=== PATIENT | female | born 1965 | race American Indian/Alaskan Native ===

== ENCOUNTER 2019-02-01 21:22 | Inpatient (IN) | payer MEDICARE ==
[2019-02-01] MEDS ORDERED: SOLU-Medrol IV ONE (21:50)
[2019-02-01] MEDS ORDERED: PROVENTIL IH ONE (21:51)
[2019-02-01] MEDS ORDERED: ATROVENT IH ONE (21:51)
[2019-02-01] MEDS ORDERED: LASIX IV ONE (21:51)
--- NOTE | 2019-02-01 21:55 | Emergency Department Report ---
ED Shortness of Breath HPI - General Chief Complaint: Dyspnea/Respdistress Stated Complaint: TOSHA Time Seen by Provider: 02/01/19 21:47 Source: patient, EMS Mode of arrival: Stretcher Limitations: No Limitations - History of Present Illness Initial Comments: Patient is 53 years old female, morbidly obese, history of CHF, COPD and obstructive sleep apnea. Patient presented to the ER complaining of shortness of breath and difficulty breathing on the last 5 days. Patient stated that her symptoms worse today. Patient is on home oxygen. EMS reported that patient initial oxygen saturation was 74% improved to 95% on nonrebreather. Patient denied any chest pain, fever or chills. MD Complaint: shortness of breath, cough -: days(s) (5) Known History Of: COPD, congestive heart failure - Related Data Allergies Allergy/AdvReac Type Severity Reaction Status Date / Time morphine Allergy Unknown Verified 02/01/19 21:45 ED Review of Systems ROS: Stated complaint: TOSHA Other details as noted in HPI Comment: All other systems reviewed and negative Constitutional: denies: chills, fever Respiratory: cough, orthopnea, shortness of breath, SOB with exertion, SOB at rest, wheezing. denies: stridor Cardiovascular: dyspnea on exertion, orthopnea. denies: chest pain, palpitations Gastrointestinal: denies: abdominal pain, nausea, vomiting Musculoskeletal: denies: back pain Neurological: denies: headache, weakness ED Physical Exam - General Limitations: No Limitations General appearance: alert, in no apparent distress - Head Head exam: Present: atraumatic, normocephalic, normal inspection - Eye Eye exam: Present: normal appearance, PERRL - ENT ENT exam: Present: normal exam, normal orophraynx, mucous membranes moist - Neck Neck exam: Present: normal inspection, full ROM. Absent: tenderness, meningismus, lymphadenopathy, thyromegaly - Respiratory Respiratory exam: Present: wheezes, rales, rhonchi. Absent: stridor, accessory muscle use, decreased breath sounds, prolonged expiratory - Cardiovascular Cardiovascular Exam: Present: regular rate, normal rhythm, normal heart sounds - GI/Abdominal GI/Abdominal exam: Present: soft, normal bowel sounds. Absent: distended, tenderness, guarding - Extremities Exam Extremities exam: Present: normal inspection, full ROM, normal capillary refill, pedal edema. Absent: tenderness, calf tenderness - Back Exam Back exam: Present: normal inspection, full ROM. Absent: CVA tenderness (R), CVA tenderness (L), muscle spasm - Neurological Exam Neurological exam: Present: alert, oriented X3, CN II-XII intact - Psychiatric Psychiatric exam: Present: normal mood - Skin Skin exam: Present: warm, intact, normal color ED Course Vital Signs 02/01/19 02/01/19 02/01/19 21:36 21:37 22:11 Pulse Rate 105 H 96 H Pulse Rate [ Anterior Throughout] Respiratory 17 22 26 H Rate Respiratory Rate [Anterior Throughout] Blood Pressure 159/79 [Left] O2 Sat by Pulse 99 98 98 Oximetry 02/01/19 02/01/19 22:47 23:19 Pulse Rate 89 Pulse Rate [ 91 H Anterior Throughout] Respiratory 14 Rate Respiratory 23 Rate [Anterior Throughout] Blood Pressure 135/71 [Left] O2 Sat by Pulse 94 Oximetry ED Medical Decision Making - Lab Data Result diagrams: 02/01/19 22:29 02/01/19 22:29 - EKG Data -: EKG Interpreted by In EKG shows normal: sinus rhythm Rate: normal - EKG Data Interpretation: no acute changes - Radiology Data Radiology results: report reviewed - Medical Decision Making Patient is 53 years old female, morbidly obese, history of CHF, COPD and obstructive sleep apnea. Patient presented to the ER complaining of shortness of breath and difficulty breathing on the last 5 days. Patient stated that her symptoms worse today. Patient is on home oxygen. EMS reported that patient initial oxygen saturation was 74% improved to 95% on nonrebreather. Patient denied any chest pain, fever or chills. Patient is started on BiPAP, albuterol, Atrovent and Solu-Medrol given. Labs reviewed and is unremarkable. I discussed the patient is Dr. Yola Spence, she agreed to admit the patient to medical service. Critical Care Time: Yes Critical care time in (mins) excluding proc time.: 30 Critical care attestation.: If time is entered above; I have spent that time in minutes in the direct care of this critically ill patient, excluding procedure time. ED Disposition Clinical Impression: Acute respiratory failure with hypoxia, COPD exacerbation Disposition: OP ADMIT IP TO THIS HOSP Is pt being admited?: Yes Condition: Stable Instructions: Chronic Obstructive Pulmonary Disease (ED) Referrals: [facility] MD CHRISTINE [Primary Care Provider] - 3-5 Days
[2019-02-01 22:46] LABS: Basophils # (Auto) 0.1 K/mm3 (0.0-0.1); Basophils % (Auto) 0.9 % (0.0-1.8); Eosinophils # (Auto) 0.2 K/mm3 (0.0-0.4); Eosinophils % (Auto) 2.4 % (0.0-4.3); Hematocrit 28.9 % (30.3-42.9); Hemoglobin 9.2 gm/dl (10.1-14.3); Lymphocytes # (Auto) 1.6 K/mm3 (1.2-5.4); Lymphocytes % (Auto) 16.9 % (13.4-35.0); Mean Corpuscular HGB Conc 32 % (30-34); Mean Corpuscular Volume 84 fl (79-97); Monocytes # (Auto) 0.5 K/mm3 (0.0-0.8); Monocytes % (Auto) 5.1 % (0.0-7.3); Platelet Count 349 K/mm3 (140-440); Red Blood Count 3.45 M/mm3 (3.65-5.03); Red Cell Distribution Width 18.5 % (13.2-15.2)
[2019-02-01 22:57] LABS: INR 1.15 (0.87-1.13)
[2019-02-01 22:59] LABS: Partial Thromboplastin Time 28.6 Sec. (24.2-36.6)
--- NOTE | 2019-02-01 23:09 | XRay Report ---
CHEST 1 VIEW INDICATION / CLINICAL INFORMATION: Dyspnea. COMPARISON: None available. FINDINGS: Exam limited by underpenetration, which is due at least in part to patient body habitus. The heart ap pears moderately enlarged. Within limitations of the exam, there does not appear to be significant pu lmonary parenchymal consolidation, although the left lung base is not visualized. No identifiable pne umothorax or right pleural fluid. A small left pleural effusion is not excluded. IMPRESSION: Mild to moderate cardiomegaly. Exam limitations as above. Consider formal two-view uprigh t chest radiography if the patient is able. Signer Name: Vinay Escobedo MD Signed: 02/01/2019 11:04 PM Workstation Name: [id number]
[2019-02-01 23:11] LABS: BUN/Creatinine Ratio 23; Blood Urea Nitrogen 18 mg/dL (7-17); Calcium 7.9 mg/dL (8.4-10.2); Hemolysis Index 11
--- NOTE | 2019-02-01 23:57 | History and Physical Report ---
History of Present Illness Date of examination: 02/01/19 History of present illness: 53 -year-old woman with a history of COPD, CHF, hypertension, diabetes sleep apnea, anxiety comes emergency room with complaints of shortness of breath 2 weeks. Her symptoms have gotten worse in the last few days, symptoms not relieved with nebulizer treatments. Complains of decreased exercise tolerance, orthopnea, cough productive of green phlegm eview Of Systems: Constitutional: no weight loss, fever, chills Ears, eyes, nose, mouth and throat: no nasal congestion, no nasal discharge, no sinus pressure, blurry vision, diplopia Neck: No neck pain or rigidity. Cardiovascular: No palpitations, chest pain Respiratory: No shortness of breath, cough Gastrointestinal: No hematochezia, abdominal pain Genitourinary : no dysuria, frequency , hematuria Musculoskeletal: no muscle ache , joint pain Integumentary: no rash, no pruritis Neurological: no parathesias, focal weakness Endocrine: no cold or heat intolerance, no polyuria or polydipsia Hematologic/Lymphatic: no easy bruising, no easy bleeding, no gland swelling Allergic/Immunologic: no urticaria, no angioedema. PAST MEDICAL HISTORY:COPD, CHF, attention, diabetes sleep apnea, anxiety PAST SURGICAL HISTORY:none FAMILY HISTORY:hypertension, diabetes SOCIAL HISTORY: Denies tobacco, drugs, alcohol Medications and Allergies Allergies Allergy/AdvReac Type Severity Reaction Status Date / Time morphine Allergy Unknown Verified 02/02/19 01:44 Home Medications Medication Instructions Recorded Confirmed Last Taken Type Amitriptyline 50 mg PO DAILY 02/02/19 02/02/19 Unknown History Atorvastatin Calcium [Lipitor] 80 mg PO DAILY 02/02/19 02/02/19 Unknown History Furosemide [Lasix TAB] 80 mg PO BID 02/02/19 02/02/19 Unknown History Gabapentin [Neurontin] 600 mg PO Q8H 02/02/19 02/02/19 Unknown History Labetalol [Labetalol 200mg TAB] 200 mg PO TID 02/02/19 02/02/19 Unknown History Losartan 25 mg PO DAILY 02/02/19 02/02/19 Unknown History Montelukast [Singulair] 10 mg PO QPM 02/02/19 02/02/19 Unknown History Potassium 20 meq PO DAILY 02/02/19 02/02/19 Unknown History Remeron 30mg TAB 30 mg PO DAILY 02/02/19 02/02/19 Unknown History dilTIAZem [Cardizem] 240 mg PO DAILY 02/02/19 02/02/19 Unknown History glipiZIDE 10 mg PO BID 02/02/19 02/02/19 Unknown History metFORMIN 1,000 mg PO BID 02/02/19 02/02/19 Unknown History ALBUTEROL Inhaler (OR & NICU) 2 puff IH QID PRN #1 inhalation 02/05/19 Unknown Rx [ProAir HFA Inhaler] Fluticasone/Salmeterol [Advair 1 puff IH BID #1 disk.w.dev 02/05/19 Unknown Rx Diskus 100-50 mcg] Prednisone [predniSONE 5 mg (6-Day 5 mg PO .TAPER #1 tab.ds.pk 02/05/19 Unknown Rx Pack, 21 Tabs)] Exam - Physical Exam Narrative exam: General Apperance: The patient sitting in bed no acute distress HEENT: Normocephalic, atraumatic. Pupils equally round and reactive to light, extraocular movement intact, and no sclericterus or JVD or thyromegaly or n odule. Neck supple, no carotid bruit, mucous membranes moist, no exudate or erythema Heart: S1-S2, regular is rhythm Lungs: decrease breath sounds bilaterally, breathing comfortable Abdomen: Positive bowel sounds, soft, nontender, nondistended, no organomegaly Extremities: No edema cyanosis clubbing Skin: no rash, nodule, warm and dry Neuro:CN 2 -12 intact, motor/sensory intact, speech is fluent - Constitutional Vitals: Temp Pulse Resp BP Pulse Ox 89 14 135/71 94 02/01/19 23:19 02/01/19 23:19 02/01/19 23:19 02/01/19 23:19 Results - Labs CBC & Chem 7: 02/02/19 05:01 02/04/19 04:25 Labs: Abnormal lab results 02/01/19 02/01/19 02/01/19 Range/Units 22:29 22:29 22:29 RBC 3.45 L (3.65-5.03) M/mm3 Hgb 9.2 L (10.1-14.3) gm/dl Hct 28.9 L (30.3-42.9) % MCH 27 L (28-32) pg RDW 18.5 H (13.2-15.2) % Seg Neutrophils % 74.7 H (40.0-70.0) % INR 1.15 H (0.87-1.13) BUN 18 H (7-17) mg/dL Glucose 197 H (65-100) mg/dL Calcium 7.9 L (8.4-10.2) mg/dL - Imaging and Cardiology EKG: image reviewed Chest x-ray: report reviewed Assessment and Plan Assessment Acute respiratory failure COPD/CHF exacerbation Hypertension Diabetes JARED Sleep Apnea Plan Admit to medicine High-dose steroids, nebulizer treatments, azithromycin Start IV Lasix, hold beta bridgett secondary to COPD exacerbation, at 80s, aspirin Check cardiac enzymes, echo, consult cardiology Check fingersticks initiate insulin sliding scale DVT prophylaxis
[2019-02-02] MEDS ORDERED: TYLENOL PO PRN (00:14)
[2019-02-02] MEDS ORDERED: SODIUM CHLORIDE FLUSH SYRINGE 10 ML IV PRN (00:14)
[2019-02-02] MEDS ORDERED: ZOFRAN IV PRN (00:14)
[2019-02-02] MEDS ORDERED: D50W (25GM) Syringe IV PRN (00:38)
[2019-02-02] MEDS: DUONEB *Not for PRN Use IH SCH ×4 (01:52→20:25)
[2019-02-02] MEDS ORDERED: SOLU-Medrol IV SCH (03:00)
[2019-02-02 03:18] LABS: Creatine Kinase MB < 1.0 ng/mL (0.0-4.0)
[2019-02-02] MEDS: ZITHROMAX 500 MG in NACL 0.9% 250ML 250 ML IV SCH ×2 (04:21→12:50)
[2019-02-02 05:31] LABS: Hematocrit 31.4 % (30.3-42.9); Hemoglobin 9.8 gm/dl (10.1-14.3); Mean Corpuscular HGB Conc 31 % (30-34); Mean Corpuscular Volume 85 fl (79-97); Platelet Count 379 K/mm3 (140-440); Red Cell Distribution Width 18.8 % (13.2-15.2)
[2019-02-02] MEDS: LASIX IV SCH ×2 (05:41→17:34)
[2019-02-02 05:51] LABS: Creatine Kinase MB < 1.0 ng/mL (0.0-4.0)
[2019-02-02 05:56] LABS: BUN/Creatinine Ratio 21; Blood Urea Nitrogen 19 mg/dL (7-17); Calcium 8.2 mg/dL (8.4-10.2); Hemolysis Index 5
[2019-02-02 06:45] LABS: Basophils % (Manual) 0 % (0.0-1.8); Eosinophils % (Manual) 0 % (0.0-4.3); Monocytes % (Manual) 0 % (0.0-7.3); Total Cells Counted 100
[2019-02-02 06:46] LABS: Anisocytosis 1+; Burr Cells Few; Ovalocytes Few; Platelet Estimate Consistent w Auto; Poikilocytosis 1+
[2019-02-02] MEDS: BABY ASPIRIN PO SCH (09:22)
[2019-02-02] MEDS: LOVENOX SUB-Q SCH (09:22)
[2019-02-02] MEDS: HumaLOG SUB-Q SCH ×4 (09:23→21:47)
[2019-02-02] MEDS: SODIUM CHLORIDE FLUSH SYRINGE 10 ML IV SCH (09:24)
[2019-02-02] MEDS ORDERED: ZESTRIL PO SCH (10:00)
--- NOTE | 2019-02-02 12:13 | Consultation ---
History of Present Illness Consult date: 02/02/19 Consult reason: shortness of breath History of present illness: Patient is a 53-year old morbidly obese female with chronic lung disease, COPD on home oxygen, Sleep apnea who presented with complaints of shortness of breath that has progressively worsened over 3 days. It's reported patient was hypoxic on EMS arrival with initial oxygen saturation at 74%. Chest x-ray reports limited exam due to underpenetration but evidence of cardiomegaly. Her latest echocardiogram done a year ago at [facility] reports a normal left ventricular systolic function, ejection fraction 50-55%. An ECG is sinus rhythm, left anterior fascicular block with poor R wave progression. Medications and Allergies Allergies Allergy/AdvReac Type Severity Reaction Status Date / Time morphine Allergy Unknown Verified 02/02/19 01:44 Home Medications Medication Instructions Recorded Confirmed Last Taken Type Amitriptyline 50 mg PO DAILY 02/02/19 02/02/19 Unknown History Atorvastatin Calcium [Lipitor] 80 mg PO DAILY 02/02/19 02/02/19 Unknown History Furosemide [Lasix TAB] 80 mg PO BID 02/02/19 02/02/19 Unknown History Gabapentin [Neurontin] 600 mg PO Q8H 02/02/19 02/02/19 Unknown History Labetalol [Labetalol 200mg TAB] 200 mg PO TID 02/02/19 02/02/19 Unknown History Losartan 25 mg PO DAILY 02/02/19 02/02/19 Unknown History Montelukast [Singulair] 10 mg PO QPM 02/02/19 02/02/19 Unknown History Potassium 20 meq PO DAILY 02/02/19 02/02/19 Unknown History Remeron 30mg TAB 30 mg PO DAILY 02/02/19 02/02/19 Unknown History dilTIAZem [CarDIZEM] 240 mg PO DAILY 02/02/19 02/02/19 Unknown History glipiZIDE 10 mg PO BID 02/02/19 02/02/19 Unknown History metFORMIN 1,000 mg PO BID 02/02/19 02/02/19 Unknown History Active Meds: Active Medications Acetaminophen (Tylenol) 650 mg PO Q4H PRN PRN Reason: Pain MILD(1-3)/Fever >100.5/HERNANDEZ Albuterol/Ipratropium (Duoneb *Not For Prn Use*) 1 ampul IH Q6HRT [facility] Last Admin: 02/02/19 01:52 Dose: 1 ampul Documented by: Aspirin (Baby Aspirin) 81 mg PO QDAY [facility] Last Admin: 02/02/19 09:22 Dose: 81 mg Documented by: Dextrose (D50w (25gm) Syringe) 50 ml IV PRN PRN PRN Reason: Hypoglycemia Enoxaparin Sodium (Lovenox) 40 mg SUB-Q QDAY@1000 [facility] Last Admin: 02/02/19 09:22 Dose: 40 mg Documented by: Furosemide (Lasix) 40 mg IV 0600,1800 [facility] Last Admin: 02/02/19 05:41 Dose: 40 mg Documented by: Azithromycin 500 mg/ Sodium (Chloride) 250 mls @ 250 mls/hr IV Q24HR [facility]; Protocol Last Admin: 02/02/19 04:21 Dose: 250 mls/hr Documented by: Insulin Human Lispro (Humalog) 0 unit SUB-Q ACHS [facility]; Protocol Last Admin: 02/02/19 09:23 Dose: 6 unit Documented by: Lisinopril (Zestril) 2.5 mg PO QDAY [facility] Last Admin: 02/02/19 09:25 Dose: Not Given Documented by: Methylprednisolone Sodium Succinate (Solu-Medrol) 125 mg IV Q6H [facility] Ondansetron HCl (Zofran) 4 mg IV Q8H PRN PRN Reason: Nausea And Vomiting Sodium Chloride (Sodium Chloride Flush Syringe 10 Ml) 10 ml IV BID [facility] Last Admin: 02/02/19 09:24 Dose: 10 ml Documented by: Sodium Chloride (Sodium Chloride Flush Syringe 10 Ml) 10 ml IV PRN PRN PRN Reason: LINE FLUSH Physical Examination Vital Signs Resp Pulse Ox 17 99 02/01/19 21:36 02/01/19 21:36 General appearance: obese HEENT: Positive: PERRL Cardiac: Positive: Reg Rate and Rhythm Lungs: Positive: Decreased Breath Sounds Extremities: Present: +1 Edema Results 02/02/19 05:01 02/02/19 05:01 Cardiac Enzymes 02/02/19 02/02/19 Range/Units 01:24 05:01 CK-MB (CK-2) < 1.0 < 1.0 (0.0-4.0) ng/mL Coagulation 02/01/19 Range/Units 22:29 PT 14.4 (12.2-14.9) Sec. INR 1.15 H (0.87-1.13) APTT 28.6 (24.2-36.6) Sec. CBC 02/01/19 02/02/19 Range/Units 22:29 05:01 WBC 9.7 9.9 (4.5-11.0) K/mm3 RBC 3.45 L 3.70 (3.65-5.03) M/mm3 Hgb 9.2 L 9.8 L (10.1-14.3) gm/dl Hct 28.9 L 31.4 (30.3-42.9) % Plt Count 349 379 (140-440) K/mm3 Lymph # 1.6 (1.2-5.4) K/mm3 [place] # 0.5 (0.0-0.8) K/mm3 Eos # 0.2 (0.0-0.4) K/mm3 Baso # 0.1 (0.0-0.1) K/mm3 Comprehensive Metabolic Panel 02/01/19 02/02/19 Range/Units 22:29 05:01 Sodium 143 141 (137-145) mmol/L Potassium 3.8 4.5 (3.6-5.0) mmol/L Chloride 102.8 99.9 (98-107) mmol/L Carbon Dioxide 24 24 (22-30) mmol/L BUN 18 H 19 H (7-17) mg/dL Creatinine 0.8 0.9 (0.7-1.2) mg/dL Glucose 197 H 280 H (65-100) mg/dL Calcium 7.9 L 8.2 L (8.4-10.2) mg/dL Assessment and Plan Shortness of breath, multifactorial COPD sleep apnea acute heart failure morbid obesity Hypertension Diabetes Recommendations: Echocardiogram for LVEF reassessment. Agree with IV diuresis and after-load reduction therapy.
[2019-02-02] MEDS: SOLU-Medrol IV SCH ×3 (13:15→17:34)
--- NOTE | 2019-02-02 14:50 | Progress Note ---
Assessment and Plan Assessment and plan: Acute on chronic respiratory failure - Treat the underlying COPD and CHF exacerbation - Continue BiPAP COPD/cor pulmonale - IV Solu-Medrol, nebulizer treatment, antibiotics - Patient has almost oxygen and BiPAP CHF exacerbation - IV Lasix, cardiology consulted and echo was done which showed ejection fr action of 35-40% - We'll restart beta blockers once COPD is controlled Hypertension - Controlled continue current medications Diabetes - ADA diet, Accu-Chek, sliding scale insulin JARED Sleep Apnea - Continue on BiPAP History Interval history: Patient was seen and evaluated this morning, patient is on BiPAP. Hospitalist Physical - Physical exam Narrative exam: Not in cardiopulmonary distress. The patient is morbidly obese. Vital signs as documented. Head exam is unremarkable. No scleral icterus . Neck is without jugular venous distension, thyromegaly, or carotid bruits. Lungs decreased air entry on the bibasilar area. Cardiac exam reveals regular rate and Rhythm. First and second heart sounds normal. No murmurs, rubs or gallops. Abdominal exam reveals normal bowel sounds, no masses, no organomegaly and no aortic enlargement. Extremities trace pedal and pretibial edema. [employer]: Alert and oriented 3. No focal weakness. - Constitutional Vitals: Temp Pulse Resp BP Pulse Ox 98.0 F 107 H 18 159/95 91 02/02/19 07:48 02/02/19 12:54 02/02/19 07:48 02/02/19 12:54 02/02/19 12:54 General appearance: Present: obese Results - Labs CBC & Chem 7: 02/02/19 05:01 02/02/19 05:01 Labs: Laboratory Last Values WBC 9.9 K/mm3 (4.5-11.0) 02/02/19 05:01 RBC 3.70 M/mm3 (3.65-5.03) 02/02/19 05:01 Hgb 9.8 gm/dl (10.1-14.3) L 02/02/19 05:01 Hct 31.4 % (30.3-42.9) 02/02/19 05:01 MCV 85 fl (79-97) 02/02/19 05:01 MCH 27 pg (28-32) L 02/02/19 05:01 MCHC 31 % (30-34) 02/02/19 05:01 RDW 18.8 % (13.2-15.2) H 02/02/19 05:01 Plt Count 379 K/mm3 (140-440) 02/02/19 05:01 Lymph % (Auto) 16.9 % (13.4-35.0) 02/01/19 22:29 [place] % (Auto) 5.1 % (0.0-7.3) 02/01/19 22: Eos % (Auto) 2.4 % (0.0-4.3) 02/01/19 22: Baso % (Auto) 0.9 % (0.0-1.8) 02/01/19 22: Lymph # 1.6 K/mm3 (1.2-5.4) 02/01/19 22: [place] # 0.5 K/mm3 (0.0-0.8) 02/01/19 22: Eos # 0.2 K/mm3 (0.0-0.4) 02/01/19 22: Baso # 0.1 K/mm3 (0.0-0.1) 02/01/19 22: Add Manual Diff Complete 02/02/19 05:01 Total Counted 100 02/02/19 05:01 Seg Neutrophils % 74.7 % (40.0-70.0) H 02/01/19 22:29 Seg Neuts % (Manual) 99.0 % (40.0-70.0) H 02/02/19 05:01 0 % 02/02/19 05:01 1.0 % (13.4-35.0) L 02/02/19 05:01 Reactive Lymphs % (Man) 0 % 02/02/19 05:01 0 % (0.0-7.3) 02/02/19 05:01 0 % (0.0-4.3) 02/02/19 05:01 0 % (0.0-1.8) 02/02/19 05:01 0 % 02/02/19 05:01 0 % 02/02/19 05:01 0 % 02/02/19 05:01 0 % 02/02/19 05:01 Nucleated RBC % 1.0 % (0.0-0.9) H 02/02/19 05:01 Seg Neutrophils # 7.3 K/mm3 (1.8-7.7) 02/01/19 22:29 Seg Neutrophils # Man 9.8 K/mm3 (1.8-7.7) H 02/02/19 05:01 Band Neutrophils # 0.0 K/mm3 02/02/19 05:01 0.1 K/mm3 (1.2-5.4) L 02/02/19 05:01 Abs React Lymphs (Man) 0.0 K/mm3 02/02/19 05:01 0.0 K/mm3 (0.0-0.8) 02/02/19 05:01 0.0 K/mm3 (0.0-0.4) 02/02/19 05:01 0.0 K/mm3 (0.0-0.1) 02/02/19 05:01 0.0 K/mm3 02/02/19 05:01 0.0 K/mm3 02/02/19 05:01 0.0 K/mm3 02/02/19 05:01 Blast Cells # 0.0 K/mm3 02/02/19 05:01 WBC Morphology Not Reportable 02/02/19 05:01 Hypersegmented Neuts Not Reportable 02/02/19 05:01 Hyposegmented Neuts Not Reportable 02/02/19 05:01 Hypogranular Neuts Not Reportable 02/02/19 05:01 Not Reportable 02/02/19 05:01 Not Reportable 02/02/19 05:01 Not Reportable 02/02/19 05:01 Not Reportable 02/02/19 05:01 Not Reportable 02/02/19 05:01 Not Reportable 02/02/19 05:01 Consistent w auto 02/02/19 05:01 Not Reportable 02/02/19 05:01 Plt Clumps, EDTA Not Reportable 02/02/19 05:01 Not Reportable 02/02/19 05:01 Not Reportable 02/02/19 05:01 Not Reportable 02/02/19 05:01 Plt Morphology Comment Not Reportable 02/02/19 05:01 RBC Morphology Not Reportable 02/02/19 05:01 Dimorphic RBCs Not Reportable 02/02/19 05:01 Not Reportable 02/02/19 05:01 Not Reportable 02/02/19 05:01 1+ 02/02/19 05:01 1+ 02/02/19 05:01 Not Reportable 02/02/19 05:01 Not Reportable 02/02/19 05:01 Not Reportable 02/02/19 05:01 Not Reportable 02/02/19 05:01 Not Reportable 02/02/19 05:01 Not Reportable 02/02/19 05:01 Not Reportable 02/02/19 05:01 Few 02/02/19 05:01 Not Reportable 02/02/19 05:01 Not Reportable 02/02/19 05:01 Not Reportable 02/02/19 05:01 Few 02/02/19 05:01 Not Reportable 02/02/19 05:01 Not Reportable 02/02/19 05:01 Few 02/02/19 05:01 Acanthocytes (Spur) Not Reportable 02/02/19 05:01 Rouleaux Not Reportable 02/02/19 05:01 Not Reportable 02/02/19 05:01 Not Reportable 02/02/19 05:01 Not Reportable 02/02/19 05:01 Not Reportable 02/02/19 05:01 Hem Pathologist Commnt No 02/02/19 05:01 PT 14.4 Sec. (12.2-14.9) 02/01/19 22:29 INR 1.15 (0.87-1.13) H 02/01/19 22:29 APTT 28.6 Sec. (24.2-36.6) 02/01/19 22:29 POC ABG pH 7.284 (7.35-7.45) L 02/02/19 00:51 POC ABG pCO2 56.5 (35-45) H 02/02/19 00:51 POC ABG pO2 70 (80-105) L 02/02/19 00:51 POC ABG HCO3 26.8 (22-26 mml/L) 02/02/19 00:51 POC ABG Total CO2 28 (23-27mmol/L) 02/02/19 00:51 POC ABG O2 Sat 91 02/02/19 00:51 POC ABG Base Excess 0 ((-2) - (+3)mmol/L) 02/02/19 00:51 30 % 02/02/19 00:51 Sodium 141 mmol/L (137-145) 02/02/19 05:01 Potassium 4.5 mmol/L (3.6-5.0) 02/02/19 05:01 Chloride 99.9 mmol/L (98-107) 02/02/19 05:01 Carbon Dioxide 24 mmol/L (22-30) 02/02/19 05:01 22 mmol/L 02/02/19 05:01 BUN 19 mg/dL (7-17) H 02/02/19 05:01 0.9 mg/dL (0.7-1.2) 02/02/19 05:01 Estimated GFR > 60 ml/min 02/02/19 05:01 21 % 02/02/19 05:01 Glucose 280 mg/dL (65-100) H 02/02/19 05:01 POC Glucose 291 (70-105) H 02/02/19 13:00 Calcium 8.2 mg/dL (8.4-10.2) L 02/02/19 05:01 70 units/L (30-135) 02/02/19 05:01 CK-MB (CK-2) < 1.0 ng/mL (0.0-4.0) 02/02/19 05:01 CK-MB (CK-2) Rel Index 1.4 (0-4) 02/02/19 05:01 < 0.010 ng/mL (0.00-0.029) 02/02/19 05:01 NT-Pro-B Natriuret Pep 598.0 pg/mL (0-900) 02/01/19 22:29 Active Medications - Current Medications Current Medications: Generic Name Dose Route Start Last Admin Trade Name Freq PRN Reason Stop Dose Admin Acetaminophen 650 mg 02/02/19 00:14 Tylenol PO Q4H PRN Pain MILD(1-3)/Fever >100.5/HERNANDEZ Albuterol/Ipratropium 1 ampul 02/02/19 02:00 02/02/19 01:52 Duoneb *Not For Prn Use* IH 1 ampul Q6HRT [facility] Administration Aspirin 81 mg 02/02/19 10:00 02/02/19 09:22 Baby Aspirin PO 81 mg QDAY [facility] Administration Dextrose 50 ml 02/02/19 00:38 D50w (25gm) Syringe IV PRN PRN Hypoglycemia Enoxaparin Sodium 40 mg 02/02/19 10:00 02/02/19 09:22 Lovenox SUB-Q 40 mg QDAY@1000 [facility] Administration Furosemide 40 mg 02/02/19 06:00 02/02/19 05:41 Lasix IV 40 mg 0600,1800 [facility] Administration Azithromycin 500 mg/ Sodium 250 mls @ 250 mls/hr 02/02/19 00:22 02/02/19 12:50 Chloride IV 250 mls/hr Q24HR [facility] Administration Protocol Ceftriaxone Sodium 1 gm in 50 mls @ 100 mls/hr 02/02/19 15:00 Rocephin/Ns 1 Gm/50 Ml IV Q24HR [facility] Protocol Insulin Human Lispro 0 unit 02/02/19 07:30 02/02/19 13:14 Humalog SUB-Q 6 unit ACHS [facility] Administration Protocol Lisinopril 20 mg 02/02/19 14:45 Zestril PO QDAY [facility] Methylprednisolone Sodium Succinate 80 mg 02/02/19 14:46 Solu-Medrol IV Q6H [facility] Ondansetron HCl 4 mg 02/02/19 00:14 Zofran IV Q8H PRN Nausea And Vomiting Sodium Chloride 10 ml 02/02/19 10:00 02/02/19 09:24 Sodium Chloride Flush Syringe 10 Ml IV 10 ml BID [facility] Administration Sodium Chloride 10 ml 02/02/19 00:14 Sodium Chloride Flush Syringe 10 Ml IV PRN PRN LINE FLUSH
[2019-02-02] MEDS: ROCEPHIN/NS 1 GM/50 ML 1 GM/50 ML BAG IV SCH (17:35)
[2019-02-02] MEDS: ZESTRIL PO SCH (17:54)
[2019-02-03] MEDS: SODIUM CHLORIDE FLUSH SYRINGE 10 ML IV SCH ×3 (01:11→21:59)
[2019-02-03] MEDS: SOLU-Medrol IV SCH ×5 (01:22→21:56)
[2019-02-03] MEDS ORDERED: SOLU-Medrol IV SCH (01:30)
[2019-02-03] MEDS: DUONEB *Not for PRN Use IH SCH ×4 (01:51→20:42)
[2019-02-03] MEDS: LASIX IV SCH ×2 (06:35→17:15)
--- NOTE | 2019-02-03 09:14 | Progress Note ---
Assessment and Plan Acute combined systolic and diastolic heart failure Cardiomyopathy, LVEF 35-40% Cor-Pulmonale and Severe Pulmonary Hypertension Obesity hypoventilation syndrome COPD on home oxygen Morbid obesity Anemia Recommend IV diuresis, afterload reduction and BiPAP therapy Guideline directed medical therapy for cardiomyopathy - add BB once heart failure symptoms resolve Subjective Date of service: 02/03/19 Interval history: Dyspnea is improving. Objective Vital Signs Temp Pulse Pulse Resp Resp BP BP 02/03/19 08:00 92 H 14 02/03/19 07:56 98.5 F 91 H 20 189/91 02/03/19 05:20 99.2 F 02/03/19 05:19 90 22 158/82 02/03/19 03:53 90 02/03/19 01:51 97 H 26 H 02/03/19 00:53 97.8 F 94 H 24 160/79 02/03/19 00:52 24 160/79 02/02/19 23:41 02/02/19 21:30 98.2 F 02/02/19 21:29 107 H 20 159/78 02/02/19 20:25 107 H 22 02/02/19 19:22 108 H 02/02/19 17:33 160/82 02/02/19 14:00 111 H 02/02/19 12:54 107 H 159/95 Pulse Ox 02/03/19 08:00 02/03/19 07:56 91 02/03/19 05:20 02/03/19 05:19 96 02/03/19 03:53 02/03/19 01:51 02/03/19 00:53 93 02/03/19 00:52 02/02/19 23:41 98 02/02/19 21:30 02/02/19 21:29 92 02/02/19 20:25 02/02/19 19:22 02/02/19 17:33 02/02/19 14:00 02/02/19 12:54 91 - Physical Examination HEENT: Positive: PERRL Cardiac: Positive: Reg Rate and Rhythm Lungs: Positive: Decreased Breath Sounds Abdomen: Positive: Soft, Active Bowel Sounds Extremities: Present: +1 Edema - Imaging and Cardiology EKG: image reviewed
[2019-02-03] MEDS: HumaLOG SUB-Q SCH ×4 (09:30→21:59)
[2019-02-03] MEDS: ROCEPHIN/NS 1 GM/50 ML 1 GM/50 ML BAG IV SCH (09:34)
[2019-02-03] MEDS: LOVENOX SUB-Q SCH (09:34)
[2019-02-03] MEDS: BABY ASPIRIN PO SCH (09:35)
[2019-02-03] MEDS: ZESTRIL PO SCH (11:15)
[2019-02-03] MEDS: ZITHROMAX 500 MG in NACL 0.9% 250ML 250 ML IV SCH (11:26)
[2019-02-03] MEDS: COZAAR PO SCH (12:06)
--- NOTE | 2019-02-03 12:23 | Progress Note ---
Assessment and Plan Assessment and plan: Acute on chronic respiratory failure - Treat the underlying COPD and CHF exacerbation - Continue BiPAP COPD/cor pulmonale - IV Solu-Medrol, nebulizer treatment, antibiotics - Patient has almost oxygen and BiPAP CHF exacerbation - IV Lasix, cardiology consulted and echo was done which showed ejection fr action of 35-40% - We'll restart beta blockers once COPD is controlled Hypertension - Controlled continue current medications Diabetes - ADA diet, Accu-Chek, sliding scale insulin JARED Sleep Apnea - Continue on BiPAP as needed. Disposition: possible DC tomorrow. Patient has home BIPAP and may need a rrangement pf BIPAP on the way home or patient may need to bring her BIPAP. History Interval history: Patient was seen and evaluated this morning, patient is on BiPAP PRN. Patient is breathing better. Hospitalist Physical - Physical exam Narrative exam: patient is on IN o2 and PRN BIPAP. The patient is morbidly obese. Vital signs as documented. Head exam is unremarkable. No scleral icterus . Neck is without jugular venous distension, thyromegaly, or carotid bruits. Lungs decreased air entry on the bibasilar area. Cardiac exam reveals regular rate and Rhythm. Abdominal exam reveals normal bowel sounds. Extremities trace pedal and pretibial edema. [employer]: Alert and oriented 3. No focal weakness. - Constitutional Vitals: Temp Pulse Resp BP Pulse Ox 98.5 F 95 H 18 180/92 94 02/03/19 11:48 02/03/19 12:06 02/03/19 11:48 02/03/19 12:06 02/03/19 11:48 General appearance: Present: obese Results - Labs CBC & Chem 7: 02/02/19 05:01 02/02/19 05:01 Labs: Laboratory Last Values WBC 9.9 K/mm3 (4.5-11.0) 02/02/19 05:01 RBC 3.70 M/mm3 (3.65-5.03) 02/02/19 05:01 Hgb 9.8 gm/dl (10.1-14.3) L 02/02/19 05:01 Hct 31.4 % (30.3-42.9) 02/02/19 05:01 MCV 85 fl (79-97) 02/02/19 05:01 MCH 27 pg (28-32) L 02/02/19 05:01 MCHC 31 % (30-34) 02/02/19 05:01 RDW 18.8 % (13.2-15.2) H 02/02/19 05:01 Plt Count 379 K/mm3 (140-440) 02/02/19 05:01 Lymph % (Auto) 16.9 % (13.4-35.0) 02/01/19 22:29 [place] % (Auto) 5.1 % (0.0-7.3) 02/01/19 22: Eos % (Auto) 2.4 % (0.0-4.3) 02/01/19 22: Baso % (Auto) 0.9 % (0.0-1.8) 02/01/19 22: Lymph # 1.6 K/mm3 (1.2-5.4) 02/01/19 22: [place] # 0.5 K/mm3 (0.0-0.8) 02/01/19 22: Eos # 0.2 K/mm3 (0.0-0.4) 02/01/19 22: Baso # 0.1 K/mm3 (0.0-0.1) 02/01/19 22:29 Add Manual Diff Complete 02/02/19 05:01 Total Counted 100 02/02/19 05:01 Seg Neutrophils % 74.7 % (40.0-70.0) H 02/01/19 22:29 Seg Neuts % (Manual) 99.0 % (40.0-70.0) H 02/02/19 05:01 0 % 02/02/19 05:01 1.0 % (13.4-35.0) L 02/02/19 05:01 Reactive Lymphs % (Man) 0 % 02/02/19 05:01 0 % (0.0-7.3) 02/02/19 05:01 0 % (0.0-4.3) 02/02/19 05:01 0 % (0.0-1.8) 02/02/19 05:01 0 % 02/02/19 05:01 0 % 02/02/19 05:01 0 % 02/02/19 05:01 0 % 02/02/19 05:01 Nucleated RBC % 1.0 % (0.0-0.9) H 02/02/19 05:01 Seg Neutrophils # 7.3 K/mm3 (1.8-7.7) 02/01/19 22:29 Seg Neutrophils # Man 9.8 K/mm3 (1.8-7.7) H 02/02/19 05:01 Band Neutrophils # 0.0 K/mm3 02/02/19 05:01 0.1 K/mm3 (1.2-5.4) L 02/02/19 05:01 Abs React Lymphs (Man) 0.0 K/mm3 02/02/19 05:01 0.0 K/mm3 (0.0-0.8) 02/02/19 05:01 0.0 K/mm3 (0.0-0.4) 02/02/19 05:01 0.0 K/mm3 (0.0-0.1) 02/02/19 05:01 0.0 K/mm3 02/02/19 05:01 0.0 K/mm3 02/02/19 05:01 0.0 K/mm3 02/02/19 05:01 Blast Cells # 0.0 K/mm3 02/02/19 05:01 WBC Morphology Not Reportable 02/02/19 05:01 Hypersegmented Neuts Not Reportable 02/02/19 05:01 Hyposegmented Neuts Not Reportable 02/02/19 05:01 Hypogranular Neuts Not Reportable 02/02/19 05:01 Not Reportable 02/02/19 05:01 Not Reportable 02/02/19 05:01 Not Reportable 02/02/19 05:01 Not Reportable 02/02/19 05:01 Not Reportable 02/02/19 05:01 Not Reportable 02/02/19 05:01 Consistent w auto 02/02/19 05:01 Not Reportable 02/02/19 05:01 Plt Clumps, EDTA Not Reportable 02/02/19 05:01 Not Reportable 02/02/19 05:01 Not Reportable 02/02/19 05:01 Not Reportable 02/02/19 05:01 Plt Morphology Comment Not Reportable 02/02/19 05:01 RBC Morphology Not Reportable 02/02/19 05:01 Dimorphic RBCs Not Reportable 02/02/19 05:01 Not Reportable 02/02/19 05:01 Not Reportable 02/02/19 05:01 1+ 02/02/19 05:01 1+ 02/02/19 05:01 Not Reportable 02/02/19 05:01 Not Reportable 02/02/19 05:01 Not Reportable 02/02/19 05:01 Not Reportable 02/02/19 05:01 Not Reportable 02/02/19 05:01 Not Reportable 02/02/19 05:01 Not Reportable 02/02/19 05:01 Few 02/02/19 05:01 Not Reportable 02/02/19 05:01 Not Reportable 02/02/19 05:01 Not Reportable 02/02/19 05:01 Few 02/02/19 05:01 Not Reportable 02/02/19 05:01 Not Reportable 02/02/19 05:01 Few 02/02/19 05:01 Acanthocytes (Spur) Not Reportable 02/02/19 05:01 Rouleaux Not Reportable 02/02/19 05:01 Not Reportable 02/02/19 05:01 Not Reportable 02/02/19 05:01 Not Reportable 02/02/19 05:01 Not Reportable 02/02/19 05:01 Hem Pathologist Commnt No 02/02/19 05:01 PT 14.4 Sec. (12.2-14.9) 02/01/19 22:29 INR 1.15 (0.87-1.13) H 02/01/19 22:29 APTT 28.6 Sec. (24.2-36.6) 02/01/19 22:29 POC ABG pH 7.284 (7.35-7.45) L 02/02/19 00:51 POC ABG pCO2 56.5 (35-45) H 02/02/19 00:51 POC ABG pO2 70 (80-105) L 02/02/19 00:51 POC ABG HCO3 26.8 (22-26 mml/L) 02/02/19 00:51 POC ABG Total CO2 28 (23-27mmol/L) 02/02/19 00:51 POC ABG O2 Sat 91 02/02/19 00:51 POC ABG Base Excess 0 ((-2) - (+3)mmol/L) 02/02/19 00:51 30 % 02/02/19 00:51 Sodium 141 mmol/L (137-145) 02/02/19 05:01 Potassium 4.5 mmol/L (3.6-5.0) 02/02/19 05:01 Chloride 99.9 mmol/L (98-107) 02/02/19 05:01 Carbon Dioxide 24 mmol/L (22-30) 02/02/19 05:01 22 mmol/L 02/02/19 05:01 BUN 19 mg/dL (7-17) H 02/02/19 05:01 0.9 mg/dL (0.7-1.2) 02/02/19 05:01 Estimated GFR > 60 ml/min 02/02/19 05:01 21 % 02/02/19 05:01 Glucose 280 mg/dL (65-100) H 02/02/19 05:01 POC Glucose 336 (70-105) H 02/03/19 08:01 Calcium 8.2 mg/dL (8.4-10.2) L 02/02/19 05:01 70 units/L (30-135) 02/02/19 05:01 CK-MB (CK-2) < 1.0 ng/mL (0.0-4.0) 02/02/19 05:01 CK-MB (CK-2) Rel Index 1.4 (0-4) 02/02/19 05:01 < 0.010 ng/mL (0.00-0.029) 02/02/19 05:01 NT-Pro-B Natriuret Pep 598.0 pg/mL (0-900) 02/01/19 22:29 Active Medications - Current Medications Current Medications: Generic Name Dose Route Start Last Admin Trade Name Freq PRN Reason Stop Dose Admin Acetaminophen 650 mg 02/02/19 00:14 Tylenol PO Q4H PRN Pain MILD(1-3)/Fever >100.5/HERNANDEZ Albuterol/Ipratropium 1 ampul 02/02/19 02:00 02/03/19 08:02 Duoneb *Not For Prn Use* IH 1 ampul Q6HRT RADHA Administration Aspirin 81 mg 02/02/19 10:00 02/03/19 09:35 Baby Aspirin PO 81 mg QDAY RADHA Administration Dextrose 50 ml 02/02/19 00:38 D50w (25gm) Syringe IV PRN PRN Hypoglycemia Enoxaparin Sodium 40 mg 02/02/19 10:00 02/03/19 09:34 Lovenox SUB-Q 40 mg QDAY@1000 RADHA Administration Furosemide 40 mg 02/02/19 06:00 02/03/19 06:35 Lasix IV 40 mg 0600,1800 RADHA Administration Azithromycin 500 mg/ Sodium 250 mls @ 250 mls/hr 02/02/19 00:22 02/03/19 11:26 Chloride IV 250 mls/hr Q24HR RADHA Administration Protocol Ceftriaxone Sodium 1 gm in 50 mls @ 100 mls/hr 02/02/19 15:00 02/03/19 09:34 Rocephin/Ns 1 Gm/50 Ml IV 100 mls/hr Q24HR RADHA Administration Protocol Insulin Human Lispro 0 unit 02/02/19 07:30 02/03/19 12:02 Humalog SUB-Q 8 unit ACHS RADHA Administration Protocol Losartan Potassium 100 mg 02/03/19 12:00 02/03/19 12:06 Cozaar PO 100 mg QDAY RADHA Administration Methylprednisolone Sodium Succinate 80 mg 02/03/19 07:00 02/03/19 12:04 Solu-Medrol IV 80 mg 0100,0700,1300,1900 RADHA Administration Ondansetron HCl 4 mg 02/02/19 00:14 Zofran IV Q8H PRN Nausea And Vomiting Sodium Chloride 10 ml 02/02/19 10:00 02/03/19 09:34 Sodium Chloride Flush Syringe 10 Ml IV 10 ml BID RADHA Administration Sodium Chloride 10 ml 02/02/19 00:14 Sodium Chloride Flush Syringe 10 Ml IV PRN PRN LINE FLUSH
[2019-02-03] MEDS ORDERED: LANTUS SUB-Q ONE (12:29)
[2019-02-03] MEDS ORDERED: NON-FORMULARY (Gabapentin [Neurontin] 600 MG) PO SCH (12:30)
[2019-02-03] MEDS ORDERED: APRESOLINE IV PRN (12:31)
[2019-02-03] MEDS ORDERED: CARDIZEM PO SCH (12:32)
[2019-02-03] MEDS ORDERED: NORMODYNE PO SCH (14:00)
[2019-02-03] MEDS: SINGULAIR PO SCH (17:18)
[2019-02-03] MEDS: NORMODYNE PO SCH ×2 (17:22→21:57)
[2019-02-03] MEDS: NEURONTIN PO SCH ×2 (17:25→21:56)
[2019-02-03] MEDS: LANTUS SUB-Q SCH ×2 (18:10→21:58)
[2019-02-03] MEDS ORDERED: RESTORIL PO PRN (20:15)
[2019-02-03] MEDS ORDERED: MILK OF MAGNESIA PO PRN (20:16)
[2019-02-03] MEDS ORDERED: MIRALAX 3350 PO PRN (20:16)
[2019-02-03] MEDS: GLUCOTROL PO SCH (21:56)
[2019-02-03] MEDS: COLACE PO SCH (21:58)
[2019-02-03] MEDS ORDERED: NON-FORMULARY (Metformin 1,000 MG) PO SCH (22:00)
[2019-02-03] MEDS ORDERED: NON-FORMULARY (Atorvastatin Calcium [Lipitor] 80 MG) PO SCH (22:00)
[2019-02-03] MEDS ORDERED: NON-FORMULARY (Glipizide 10 MG) PO SCH (22:00)
[2019-02-03] MEDS: GLUCOPHAGE PO SCH (22:01)
[2019-02-04 05:18] LABS: BUN/Creatinine Ratio 33; Blood Urea Nitrogen 23 mg/dL (7-17); Calcium 8.3 mg/dL (8.4-10.2); Hemolysis Index 0
[2019-02-04] MEDS: NEURONTIN PO SCH ×3 (06:08→21:16)
[2019-02-04] MEDS: LASIX IV SCH ×2 (06:09→17:14)
[2019-02-04] MEDS: DUONEB *Not for PRN Use IH SCH ×4 (06:23→20:11)
[2019-02-04] MEDS: HumaLOG SUB-Q SCH ×4 (09:12→21:29)
[2019-02-04] MEDS: ROCEPHIN/NS 1 GM/50 ML 1 GM/50 ML BAG IV SCH (09:13)
[2019-02-04] MEDS: NORMODYNE PO SCH ×3 (09:14→21:17)
[2019-02-04] MEDS: SOLU-Medrol IV SCH ×3 (09:16→21:16)
[2019-02-04] MEDS: COZAAR PO SCH (09:16)
[2019-02-04] MEDS: LOVENOX SUB-Q SCH (09:16)
[2019-02-04] MEDS: BABY ASPIRIN PO SCH (09:17)
[2019-02-04] MEDS: GLUCOPHAGE PO SCH ×2 (09:17→21:15)
[2019-02-04] MEDS: GLUCOTROL PO SCH ×2 (09:17→21:17)
[2019-02-04] MEDS: REMERON PO SCH (09:17)
[2019-02-04] MEDS: ELAVIL PO SCH (09:17)
[2019-02-04] MEDS: COLACE PO SCH ×2 (09:17→21:37)
[2019-02-04] MEDS: SODIUM CHLORIDE FLUSH SYRINGE 10 ML IV SCH ×2 (09:18→21:36)
[2019-02-04] MEDS ORDERED: AMITRIPTYLINE 50 MG PO SCH (10:00)
[2019-02-04] MEDS ORDERED: CARDIZEM CD PO SCH (10:00)
[2019-02-04] MEDS ORDERED: CARDIZEM PO SCH (10:00)
[2019-02-04] MEDS ORDERED: REMERON 30 MG PO SCH (10:00)
--- NOTE | 2019-02-04 10:56 | Progress Note ---
Assessment and Plan Acute combined systolic and diastolic heart failure Cardiomyopathy, LVEF 35-40% Cor-Pulmonale and Severe Pulmonary Hypertension Obesity hypoventilation syndrome COPD on home oxygen Morbid obesity Anemia Recommend: Continue current therapy Add BB Subjective Date of service: 02/04/19 Interval history: Pt reports dyspnea is much improved Objective Vital Signs Temp Pulse Pulse Resp Resp BP Pulse Ox 02/04/19 09:17 84 160/81 02/04/19 09:16 84 160/81 02/04/19 09:14 84 160/81 02/04/19 08:47 98 02/04/19 08:13 94 H 18 02/04/19 08:06 97.9 F 84 20 160/81 95 02/04/19 06:00 93 H 02/04/19 05:39 97.7 F 02/04/19 05:38 88 20 158/85 98 02/03/19 23:43 86 32 H 98 02/03/19 23:41 98.1 F 02/03/19 23:40 95 H 22 168/78 91 02/03/19 22:00 90 02/03/19 21:57 92 H 149/81 02/03/19 20:43 95 H 18 97 02/03/19 19:52 97.8 F 02/03/19 19:50 93 H 20 149/81 90 02/03/19 16:42 98.6 F 100 H 20 169/92 91 02/03/19 14:00 92 H 19 02/03/19 12:06 95 H 180/92 02/03/19 11:48 98.5 F 95 H 18 180/92 94 - Physical Examination HEENT: Positive: PERRL Cardiac: Positive: Reg Rate and Rhythm, Systolic Murmur Lungs: Positive: Decreased Breath Sounds Abdomen: Positive: Soft, Active Bowel Sounds Extremities: Present: +1 Edema - Labs and Meds Comprehensive Metabolic Panel 02/04/19 Range/Units 04:25 Sodium 140 (137-145) mmol/L Potassium 3.4 L D (3.6-5.0) mmol/L Chloride 94.9 L (98-107) mmol/L Carbon Dioxide 31 H D (22-30) mmol/L BUN 23 H (7-17) mg/dL Creatinine 0.7 (0.7-1.2) mg/dL Glucose 201 H (65-100) mg/dL Calcium 8.3 L (8.4-10.2) mg/dL - Imaging and Cardiology EKG: image reviewed
[2019-02-04] MEDS ORDERED: COREG PO SCH (11:00)
[2019-02-04] MEDS: ZITHROMAX 500 MG in NACL 0.9% 250ML 250 ML IV SCH (13:03)
[2019-02-04] MEDS: LANTUS SUB-Q SCH ×2 (17:14→21:30)
[2019-02-04] MEDS: SINGULAIR PO SCH (17:14)
--- NOTE | 2019-02-04 18:22 | Progress Note ---
Assessment and Plan 53 -year-old woman with a history of COPD, CHF, attention, diabetes sleep apnea, anxiety comes emergency room with complaints of shortness of breath 2 weeks. Her symptoms have gotten worse in the last few days, symptoms not relieved with nebulizer treatments. Complains of decreased exercise tolerance, orthopnea, cough productive of green phlegm Acute on chronic respiratory failure with hypoxia - Treat the underlying COPD and CHF exacerbation - Continue BiPAP On oxygen tenderness, COPD/cor pulmonale - IV Solu-Medrol, nebulizer treatment, antibiotics - Patient has almost oxygen and BiPAP CHF exacerbation - IV Lasix, cardiology consulted and echo was done which showed ejection fraction of 35-40% - We'll restart beta blockers once COPD is controlled Hypertension - Controlled continue current medications Diabetes - ADA diet, Accu-Chek, sliding scale insulin JARED Sleep Apnea - Continue on BiPAP as needed. Disposition: To arrange for home BIPAP on the way home or patient may need to bring her BIPAP. DVT prophylaxis with Lovenox Subjective Date of service: 02/04/19 Principal diagnosis: shortness of breath, hypoxemic respiratory failure Interval history: Still complaining of shortness of breath. Objective - Exam Narrative Exam: Constitutional: Morbidly Obese Well-nourished well-developed. Head: Normocephalic atraumatic Eyes: Pupils are equal round and reactive to light Nose: No enlarged turbinates, no septal deviation. Mouth: Moist mucous membranes. Neck: Supple no thyromegaly. No bruit. No JVD Heart: Regular rate and rhythm, S1-S2 normal. No rubs murmurs or gallop Lungs: Clear to auscultation bilaterally. no rales or rhonchi Abdomen: Soft, nontender. Bowel sound are present. Extremities: No edema, no cyanosis, no clubbing. Neuro: Alert oriented Oriented x3. No focal sensory or motor deficit. Skin: No rashes or hyperpigmented spots Musculoskeletal system: No joint pain or swelling Hematological: No petechia or subcutanous hemorrhages. Immunological: No multiple septic spots on the skin Lymphatic: No generalized lymphadenopathy Psychiatry: Euthymic. Calm. - Constitutional Vitals: Vital Signs - 12hr 02/04/19 02/04/19 02/04/19 08:06 08:13 08:47 Temperature 97.9 F Pulse Rate 84 Pulse Rate [ 94 H Anterior Throughout] Respiratory 20 Rate Respiratory 18 Rate [Anterior Throughout] Blood Pressure 160/81 O2 Sat by Pulse 95 98 Oximetry 02/04/19 02/04/19 02/04/19 09:14 09:16 09:17 Temperature Pulse Rate 84 84 84 Pulse Rate [ Anterior Throughout] Respiratory Rate Respiratory Rate [Anterior Throughout] Blood Pressure 160/81 160/81 160/81 O2 Sat by Pulse Oximetry 02/04/19 02/04/19 02/04/19 11:25 13:06 14:02 Temperature 98.0 F Pulse Rate 92 H Pulse Rate [ 87 Anterior Throughout] Respiratory 20 Rate Respiratory 18 Rate [Anterior Throughout] Blood Pressure 166/84 166/84 O2 Sat by Pulse 91 Oximetry 02/04/19 02/04/19 15:25 16:21 Temperature 97.9 F Pulse Rate 84 Pulse Rate [ Anterior Throughout] Respiratory 20 Rate Respiratory Rate [Anterior Throughout] Blood Pressure 147/73 O2 Sat by Pulse 97 95 Oximetry - Labs CBC & Chem 7: 02/02/19 05:01 02/04/19 04:25 Labs: Abnormal lab results 02/03/19 02/04/19 02/04/19 Range/Units 21:17 04:25 08:11 Potassium 3.4 L D (3.6-5.0) mmol/L Chloride 94.9 L (98-107) mmol/L Carbon Dioxide 31 H D (22-30) mmol/L BUN 23 H (7-17) mg/dL Glucose 201 H (65-100) mg/dL POC Glucose 346 H 203 H (70-105) Calcium 8.3 L (8.4-10.2) mg/dL 02/04/19 02/04/19 Range/Units 11:31 16:25 Potassium (3.6-5.0) mmol/L Chloride (98-107) mmol/L Carbon Dioxide (22-30) mmol/L BUN (7-17) mg/dL Glucose (65-100) mg/dL POC Glucose 309 H 245 H (70-105) Calcium (8.4-10.2) mg/dL
[2019-02-05] MEDS: DUONEB *Not for PRN Use IH SCH ×4 (01:03→19:16)
[2019-02-05] MEDS: LASIX IV SCH ×2 (05:26→17:51)
[2019-02-05] MEDS: NEURONTIN PO SCH ×3 (05:26→22:50)
--- NOTE | 2019-02-05 10:14 | Discharge Summary ---
Providers - Providers Date of Admission: 02/01/19 23:57 Attending physician: BENJY MCCOY MD 02/02/19 01:19 Consult to Physician [CONS] Routine Comment: Consulting Provider: OMAYRA CARTY Physician Instructions: Reason For Exam: possible chf Primary care physician: [facility] Hospitalization Condition: Stable Hospital course: 53 -year-old woman with a history of COPD, CHF, attention, diabetes sleep apnea, anxiety comes emergency room with complaints of shortness of breath 2 weeks. Her symptoms have gotten worse in the last few days, symptoms not relieved with nebulizer treatments. Complains of decreased exercise tolerance, orthopnea, cough productive of green phlegm Acute on chronic respiratory failure with hypoxia she was rx underlying COPD and CHF exacerbation - rx w BiPAP She received oxygen supplementation COPD/cor pulmonale - IV Solu-Medrol, nebulizer treatment, antibiotics CHF exacerbation - IV Lasix, cardiology consulted and echo was done which showed ejection fraction of 35-40% Hypertension - Controlled continue current medications Diabetes - ADA diet, Accu-Chek, sliding scale insulin JARED Sleep Apnea BiPAP/CPAP while asleep Disposition: DC- TO HOME OR SELFCARE Time spent for discharge: 33 mins Core Measure Documentation - Palliative Care Palliative Care/ Comfort Measures: Not Applicable - Core Measures Any of the following diagnoses?: heart failure - Heart Failure Discharge Requirements SUNITA/ARB for LVSD if EF <40%: Yes Beta bridgett at discharge: Yes Exam - Constitutional Vitals: Temp Pulse Resp BP Pulse Ox 98.1 F 70 20 163/83 95 02/05/19 07:22 02/05/19 08:09 02/05/19 08:09 02/05/19 07:22 02/05/19 08:09 General appearance: Present: no acute distress, well-nourished - EENT Eyes: Present: PERRL ENT: hearing intact, clear oral mucosa - Neck Neck: Present: supple, normal ROM - Respiratory Respiratory effort: normal Respiratory: bilateral: CTA - Cardiovascular Heart Sounds: Present: S1 & S2. Absent: rub, click - Extremities Extremities: pulses symmetrical, No edema Peripheral Pulses: within normal limits - Abdominal General gastrointestinal: Present: soft, non-tender, non-distended, normal bowel sounds Female genitourinary: Present: normal - Integumentary Integumentary: Present: clear, warm, dry - Musculoskeletal Musculoskeletal: gait normal, strength equal bilaterally - Psychiatric Psychiatric: appropriate mood/affect, intact judgment & insight - Neurologic Neurologic: CNII-XII intact, moves all extremities Plan Follow up with: LAURYN MARIN MD [Referring] - 3-5 Days Forms: Discharge Signature Page Prescriptions: Fluticasone/Salmeterol [Advair Diskus 100-50 mcg] 1 puff IH BID #1 disk.w.dev Prednisone [predniSONE 5 mg (6-Day Pack, 21 Tabs)] 5 mg PO .TAPER #1 tab.ds.pk ALBUTEROL Inhaler (OR & NICU) [ProAir HFA Inhaler] 2 puff IH QID PRN #1 inhalation PRN Reason: Shortness Of Breath
[2019-02-05] MEDS: ZITHROMAX 500 MG in NACL 0.9% 250ML 250 ML IV SCH (10:39)
[2019-02-05] MEDS: ROCEPHIN/NS 1 GM/50 ML 1 GM/50 ML BAG IV SCH (10:41)
[2019-02-05] MEDS: GLUCOTROL PO SCH ×2 (10:42→22:50)
[2019-02-05] MEDS: GLUCOPHAGE PO SCH ×2 (10:42→22:50)
[2019-02-05] MEDS: REMERON PO SCH (10:42)
[2019-02-05] MEDS: COZAAR PO SCH (10:43)
[2019-02-05] MEDS: BABY ASPIRIN PO SCH (10:43)
[2019-02-05] MEDS: ELAVIL PO SCH (10:43)
[2019-02-05] MEDS: COLACE PO SCH ×2 (10:44→22:55)
[2019-02-05] MEDS: LOVENOX SUB-Q SCH (10:45)
[2019-02-05] MEDS: NORMODYNE PO SCH ×3 (10:47→21:45)
[2019-02-05] MEDS: SOLU-Medrol IV SCH ×3 (10:48→21:45)
[2019-02-05] MEDS: SODIUM CHLORIDE FLUSH SYRINGE 10 ML IV SCH ×2 (10:49→22:50)
[2019-02-05] MEDS: HumaLOG SUB-Q SCH ×4 (10:51→22:50)
--- NOTE | 2019-02-05 12:22 | Progress Note ---
Assessment and Plan Shortness of breath, multifactorial COPD sleep apnea acute combined systolic and diastolic heart failure LVEF 35-40% by echo this admission morbid obesity cor-Pulmonale and Severe Pulmonary Hypertension Hypertension Diabetes Anemia Recommend: Advised fluid/sodium restriction. Continue medical therapy for dilated cardiomyopathy. Stable cardiac mehta. Once discharge, patient advised to follow up with Dr Cervantes within 3-5 days. Subjective Date of service: 02/05/19 Principal diagnosis: shortness of breath, hypoxemic respiratory failure Interval history: Patient reports her breathing is better. Objective Vital Signs Temp Pulse Pulse Resp Resp BP Pulse Ox 02/05/19 11:36 98.5 F 88 18 160/80 89 02/05/19 10:47 84 163/83 02/05/19 10:43 84 163/83 02/05/19 08:09 70 20 95 02/05/19 07:22 98.1 F 84 18 163/83 93 02/05/19 04:26 98.0 F 74 18 143/67 93 02/05/19 02:47 77 02/05/19 01:05 86 24 02/04/19 23:38 83 20 98 02/04/19 23:30 98.0 F 86 18 140/64 91 02/04/19 21:17 91 H 172/87 02/04/19 20:14 84 22 96 02/04/19 19:49 90 02/04/19 19:41 98.0 F 91 H 18 172/87 88 02/04/19 16:21 97.9 F 84 20 147/73 95 02/04/19 15:25 97 02/04/19 14:02 87 18 02/04/19 13:06 166/84 - Physical Examination General: No Apparent Distress HEENT: Positive: PERRL Neck: Positive: neck supple Cardiac: Positive: Reg Rate and Rhythm Lungs: Positive: Decreased Breath Sounds Neuro: Positive: Grossly Intact Abdomen: Positive: Soft, Active Bowel Sounds Extremities: Present: +1 Edema
[2019-02-05] MEDS: LANTUS SUB-Q SCH (22:50)
[2019-02-05] MEDS ORDERED: LANTUS SUB-Q ONE (23:26)
--- NOTE | 2019-02-05 23:29 | Progress Note ---
Assessment and Plan Assessment and plan: 53 -year-old woman with a history of COPD, CHF, attention, diabetes sleep apnea, anxiety comes emergency room with complaints of shortness of breath 2 weeks. Her symptoms have gotten worse in the last few days, symptoms not relieved with nebulizer treatments. Complains of decreased exercise tolerance, orthopnea, cough productive of green phlegm Acute on chronic respiratory failure with hypoxia - Treat the underlying COPD and CHF exacerbation - Continue BiPAP On oxygen tenderness, COPD/cor pulmonale - IV Solu-Medrol, nebulizer treatment, antibiotics - Patient has almost oxygen and BiPAP Acute on chronic combined systolic/diastolicCHF exacerbation - IV Lasix, cardiology consulted and echo was done which showed ejection fraction of 35-40% - We'll restart beta blockers once COPD is controlled Hypertension - Controlled continue current medications Diabetes - ADA diet, Accu-Chek, sliding scale insulin JARED Sleep Apnea - Continue on BiPAP as needed. Disposition: To arrange for home BIPAP on the way home or patient may need to bring her BIPAP. DVT prophylaxis with Lovenox History Interval history: Shortness of breath is improved, denies wheezing today, still has some dyspnea on exertion but it is improving. Denies chest pain, denies fevers, denies chills Hospitalist Physical - Physical exam Narrative exam: General.: Appears well, no distress, nontoxic HEENT: Moist mucous membranes, extraocular muscles intact, no lymphadenopathy Neck: supple Cardiac: S1-S2 heard Lungs: clear to auscultation bilaterally Abdomen: soft , nontender, nondistended, bowel sounds positive Extremities: no edema clubbing or cyanosis Skin: no rash or lesions Neurologic: no gross focal deficits Psych: calm, and cooperative - Constitutional Vitals: Temp Pulse Resp BP Pulse Ox 99.3 F 96 H 18 170/80 93 02/05/19 22:48 02/05/19 22:48 02/05/19 22:48 02/05/19 22:48 02/05/19 22:48 General appearance: Present: obese Results - Labs CBC & Chem 7: 02/02/19 05:01 02/04/19 04:25 Labs: Laboratory Last Values WBC 9.9 K/mm3 (4.5-11.0) 02/02/19 05:01 RBC 3.70 M/mm3 (3.65-5.03) 02/02/19 05:01 Hgb 9.8 gm/dl (10.1-14.3) L 02/02/19 05:01 Hct 31.4 % (30.3-42.9) 02/02/19 05:01 MCV 85 fl (79-97) 02/02/19 05:01 MCH 27 pg (28-32) L 02/02/19 05:01 MCHC 31 % (30-34) 02/02/19 05:01 RDW 18.8 % (13.2-15.2) H 02/02/19 05:01 Plt Count 379 K/mm3 (140-440) 02/02/19 05:01 Lymph % (Auto) 16.9 % (13.4-35.0) 02/01/19 22: Ramsey % (Auto) 5.1 % (0.0-7.3) 02/01/19 22: Eos % (Auto) 2.4 % (0.0-4.3) 02/01/19 22: Baso % (Auto) 0.9 % (0.0-1.8) 02/01/19 22: Lymph # 1.6 K/mm3 (1.2-5.4) 02/01/19 22: Ramsey # 0.5 K/mm3 (0.0-0.8) 02/01/19 22: Eos # 0.2 K/mm3 (0.0-0.4) 02/01/19 22: Baso # 0.1 K/mm3 (0.0-0.1) 02/01/19 22:29 Add Manual Diff Complete 02/02/19 05:01 Total Counted 100 02/02/19 05:01 Seg Neutrophils % 74.7 % (40.0-70.0) H 02/01/19 22:29 Seg Neuts % (Manual) 99.0 % (40.0-70.0) H 02/02/19 05:01 0 % 02/02/19 05:01 1.0 % (13.4-35.0) L 02/02/19 05:01 Reactive Lymphs % (Man) 0 % 02/02/19 05:01 0 % (0.0-7.3) 02/02/19 05:01 0 % (0.0-4.3) 02/02/19 05:01 0 % (0.0-1.8) 02/02/19 05:01 0 % 02/02/19 05:01 0 % 02/02/19 05:01 0 % 02/02/19 05:01 0 % 02/02/19 05:01 Nucleated RBC % 1.0 % (0.0-0.9) H 02/02/19 05:01 Seg Neutrophils # 7.3 K/mm3 (1.8-7.7) 02/01/19 22:29 Seg Neutrophils # Man 9.8 K/mm3 (1.8-7.7) H 02/02/19 05:01 Band Neutrophils # 0.0 K/mm3 02/02/19 05:01 0.1 K/mm3 (1.2-5.4) L 02/02/19 05:01 Abs React Lymphs (Man) 0.0 K/mm3 02/02/19 05:01 0.0 K/mm3 (0.0-0.8) 02/02/19 05:01 0.0 K/mm3 (0.0-0.4) 02/02/19 05:01 0.0 K/mm3 (0.0-0.1) 02/02/19 05:01 0.0 K/mm3 02/02/19 05:01 0.0 K/mm3 02/02/19 05:01 0.0 K/mm3 02/02/19 05:01 Blast Cells # 0.0 K/mm3 02/02/19 05:01 WBC Morphology Not Reportable 02/02/19 05:01 Hypersegmented Neuts Not Reportable 02/02/19 05:01 Hyposegmented Neuts Not Reportable 02/02/19 05:01 Hypogranular Neuts Not Reportable 02/02/19 05:01 Not Reportable 02/02/19 05:01 Not Reportable 02/02/19 05:01 Not Reportable 02/02/19 05:01 Not Reportable 02/02/19 05:01 Not Reportable 02/02/19 05:01 Not Reportable 02/02/19 05:01 Consistent w auto 02/02/19 05:01 Not Reportable 02/02/19 05:01 Plt Clumps, EDTA Not Reportable 02/02/19 05:01 Not Reportable 02/02/19 05:01 Not Reportable 02/02/19 05:01 Not Reportable 02/02/19 05:01 Plt Morphology Comment Not Reportable 02/02/19 05:01 RBC Morphology Not Reportable 02/02/19 05:01 Dimorphic RBCs Not Reportable 02/02/19 05:01 Not Reportable 02/02/19 05:01 Not Reportable 02/02/19 05:01 1+ 02/02/19 05:01 1+ 02/02/19 05:01 Not Reportable 02/02/19 05:01 Not Reportable 02/02/19 05:01 Not Reportable 02/02/19 05:01 Not Reportable 02/02/19 05:01 Not Reportable 02/02/19 05:01 Not Reportable 02/02/19 05:01 Not Reportable 02/02/19 05:01 Few 02/02/19 05:01 Not Reportable 02/02/19 05:01 Not Reportable 02/02/19 05:01 Not Reportable 02/02/19 05:01 Few 02/02/19 05:01 Not Reportable 02/02/19 05:01 Not Reportable 02/02/19 05:01 Few 02/02/19 05:01 Acanthocytes (Spur) Not Reportable 02/02/19 05:01 Rouleaux Not Reportable 02/02/19 05:01 Not Reportable 02/02/19 05:01 Not Reportable 02/02/19 05:01 Not Reportable 02/02/19 05:01 Not Reportable 02/02/19 05:01 Hem Pathologist Commnt No 02/02/19 05:01 PT 14.4 Sec. (12.2-14.9) 02/01/19 22:29 INR 1.15 (0.87-1.13) H 02/01/19 22:29 APTT 28.6 Sec. (24.2-36.6) 02/01/19 22:29 POC ABG pH 7.284 (7.35-7.45) L 02/02/19 00:51 POC ABG pCO2 56.5 (35-45) H 02/02/19 00:51 POC ABG pO2 70 (80-105) L 02/02/19 00:51 POC ABG HCO3 26.8 (22-26 mml/L) 02/02/19 00:51 POC ABG Total CO2 28 (23-27mmol/L) 02/02/19 00:51 POC ABG O2 Sat 91 02/02/19 00:51 POC ABG Base Excess 0 ((-2) - (+3)mmol/L) 02/02/19 00:51 30 % 02/02/19 00:51 Sodium 140 mmol/L (137-145) 02/04/19 04:25 Potassium 3.4 mmol/L (3.6-5.0) L D 02/04/19 04:25 Chloride 94.9 mmol/L (98-107) L 02/04/19 04:25 Carbon Dioxide 31 mmol/L (22-30) H D 02/04/19 04:25 18 mmol/L 02/04/19 04:25 BUN 23 mg/dL (7-17) H 02/04/19 04:25 0.7 mg/dL (0.7-1.2) 02/04/19 04:25 Estimated GFR > 60 ml/min 02/04/19 04:25 33 % 02/04/19 04:25 Glucose 201 mg/dL (65-100) H 02/04/19 04:25 POC Glucose 319 (70-105) H 02/05/19 20:41 Calcium 8.3 mg/dL (8.4-10.2) L 02/04/19 04:25 70 units/L (30-135) 02/02/19 05:01 CK-MB (CK-2) < 1.0 ng/mL (0.0-4.0) 02/02/19 05:01 CK-MB (CK-2) Rel Index 1.4 (0-4) 02/02/19 05:01 < 0.010 ng/mL (0.00-0.029) 02/02/19 05:01 NT-Pro-B Natriuret Pep 598.0 pg/mL (0-900) 02/01/19 22:29 Active Medications - Current Medications Current Medications: Generic Name Dose Route Start Last Admin Trade Name Freq PRN Reason Stop Dose Admin Acetaminophen 650 mg 02/02/19 00:14 Tylenol PO Q4H PRN Pain MILD(1-3)/Fever >100.5/HERNANDEZ Albuterol/Ipratropium 1 ampul 02/02/19 02:00 02/05/19 19:16 Duoneb *Not For Prn Use* IH 1 ampul Q6HRT RADHA Administration Amitriptyline HCl 50 mg 02/04/19 10:00 02/05/19 10:43 Elavil PO 50 mg QDAY RADHA Administration Aspirin 81 mg 02/02/19 10:00 02/05/19 10:43 Baby Aspirin PO 81 mg QDAY RADHA Administration Atorvastatin Calcium 80 mg 02/03/19 22:00 02/05/19 22:50 Lipitor PO 80 mg QHS RADHA Administration Dextrose 50 ml 02/02/19 00:38 D50w (25gm) Syringe IV PRN PRN Hypoglycemia Docusate Sodium 100 mg 02/03/19 22:00 02/05/19 22:55 Colace PO Not Given BID RADHA Enoxaparin Sodium 40 mg 02/02/19 10:00 02/05/19 10:45 Lovenox SUB-Q 40 mg QDAY@1000 RADHA Administration Furosemide 40 mg 02/02/19 06:00 02/05/19 17:51 Lasix IV 40 mg 0600,1800 RADHA Administration Gabapentin 600 mg 02/03/19 12:45 02/05/19 22:50 Neurontin PO 600 mg Q8HR RADHA Administration Glipizide 10 mg 02/03/19 22:00 02/05/19 22:50 Glucotrol PO 10 mg BID RADHA Administration Hydralazine HCl 10 mg 02/03/19 12:31 Apresoline IV Q4HR PRN Hypertension Ceftriaxone Sodium 1 gm in 50 mls @ 100 mls/hr 02/02/19 15:00 02/05/19 10:41 Rocephin/Ns 1 Gm/50 Ml IV 02/06/19 10:29 100 mls/hr Q24HR RADHA Administration Protocol Insulin Glargine 20 units 02/03/19 22:00 02/05/19 22:50 Lantus SUB-Q 20 units QHS RADHA Administration Insulin Glargine 10 units 02/05/19 23:26 Lantus SUB-Q 02/05/19 23:27 ONCE ONE Insulin Human Lispro 0 unit 02/02/19 07:30 02/05/19 22:50 Humalog SUB-Q 8 unit ACHS RADHA Administration Protocol Labetalol HCl 200 mg 02/03/19 12:32 02/05/19 21:45 Normodyne PO 200 mg TID RADHA Administration Losartan Potassium 100 mg 02/03/19 12:00 02/05/19 10:43 Cozaar PO 100 mg QDAY RADHA Administration Magnesium Hydroxide 30 ml 02/03/19 20:16 Milk Of Magnesia PO Q4H PRN Constipation Metformin HCl 1,000 mg 02/03/19 22:00 02/05/19 22:50 Glucophage PO 1,000 mg BID RADHA Administration Methylprednisolone Sodium Succinate 60 mg 02/03/19 14:00 02/05/19 21:45 Solu-Medrol IV 60 mg TID RADHA Administration Mirtazapine 30 mg 02/04/19 10:00 02/05/19 10:42 Remeron PO 30 mg QDAY RADHA Administration Miscellaneous Medication 25 mg 02/06/19 10:00 Losartan PO DAILY [facility] Montelukast Sodium 10 mg 02/03/19 18:00 02/04/19 17:14 Singulair PO 10 mg QPM RADHA Administration Ondansetron HCl 4 mg 02/02/19 00:14 Zofran IV Q8H PRN Nausea And Vomiting Polyethylene Glycol 17 gm 02/03/19 20:16 Miralax 3350 PO QDAY PRN Constipation Sodium Chloride 10 ml 02/02/19 10:00 02/05/19 22:50 Sodium Chloride Flush Syringe 10 Ml IV 10 ml BID RADHA Administration Sodium Chloride 10 ml 02/02/19 00:14 Sodium Chloride Flush Syringe 10 Ml IV PRN PRN LINE FLUSH Temazepam 15 mg 02/03/19 20:15 Restoril PO QHS PRN Sleep
[2019-02-06] MEDS: DUONEB *Not for PRN Use IH SCH ×2 (04:15→07:56)
[2019-02-06] MEDS: LASIX IV SCH (05:42)
[2019-02-06] MEDS: NEURONTIN PO SCH (05:42)
[2019-02-06] MEDS: SINGULAIR PO SCH (07:46)
[2019-02-06] MEDS: HumaLOG SUB-Q SCH (08:00)
[2019-02-06] MEDS ORDERED: COZAAR PO SCH (10:00)
[2019-02-06] MEDS ORDERED: NON-FORMULARY (Losartan 25 MG) PO SCH (10:00)
--- NOTE | 2019-02-06 10:07 | Progress Note ---
Assessment and Plan Shortness of breath, multifactorial COPD sleep apnea acute combined systolic and diastolic heart failure LVEF 35-40% by echo this admission morbid obesity cor-Pulmonale and severe pulmonary hypertension Hypertension Diabetes Anemia Recommend: Advised fluid/sodium restriction. Continue medical therapy for dilated cardiomyopathy. Stable cardiac mehta. Once discharge, patient advised to follow up with Dr Cervantes within 3-5 days. Subjective Date of service: 02/06/19 Principal diagnosis: shortness of breath, hypoxemic respiratory failure Interval history: Patient has no cardiac complaints. Objective Vital Signs Temp Pulse Pulse Pulse Resp Resp BP 02/06/19 07:58 76 18 02/06/19 04:13 77 23 02/06/19 03:23 98.1 F 73 20 167/79 02/06/19 00:41 89 20 02/06/19 00:00 77 02/05/19 22:48 99.3 F 96 H 18 170/80 02/05/19 22:00 101 H 02/05/19 19:28 98.3 F 90 20 166/73 02/05/19 19:18 02/05/19 19:17 88 18 02/05/19 17:55 150/68 02/05/19 16:32 98.0 F 91 H 18 164/73 02/05/19 16:00 84 02/05/19 15:58 88 20 02/05/19 15:00 02/05/19 14:00 90 151/62 02/05/19 12:00 87 02/05/19 11:36 98.5 F 88 18 160/80 02/05/19 10:47 84 163/83 02/05/19 10:43 84 163/83 Pulse Ox 02/06/19 07:58 93 02/06/19 04:13 95 02/06/19 03:23 96 02/06/19 00:41 97 02/06/19 00:00 02/05/19 22:48 93 02/05/19 22:00 95 02/05/19 19:28 84 02/05/19 19:18 95 02/05/19 19:17 02/05/19 17:55 02/05/19 16:32 93 02/05/19 16:00 02/05/19 15:58 02/05/19 15:00 99 02/05/19 14:00 02/05/19 12:00 02/05/19 11:36 89 02/05/19 10:47 02/05/19 10:43 - Physical Examination General: No Apparent Distress HEENT: Positive: PERRL Neck: Positive: neck supple Cardiac: Positive: Reg Rate and Rhythm Lungs: Positive: Decreased Breath Sounds Neuro: Positive: Grossly Intact Abdomen: Positive: Soft, Active Bowel Sounds Extremities: Present: +1 Edema
[2019-02-06 10:23] VITALS: BP 181/88
[2019-02-06] MEDS: GLUCOPHAGE PO SCH (10:27)
[2019-02-06] MEDS: GLUCOTROL PO SCH (10:27)
[2019-02-06] MEDS: COLACE PO SCH (10:27)
[2019-02-06] MEDS: BABY ASPIRIN PO SCH (10:28)
[2019-02-06] MEDS: NORMODYNE PO SCH (10:28)
[2019-02-06] MEDS: SOLU-Medrol IV SCH (10:28)
[2019-02-06] MEDS: LOVENOX SUB-Q SCH (10:29)
[2019-02-06] MEDS: ELAVIL PO SCH (10:29)
[2019-02-06] MEDS: ROCEPHIN/NS 1 GM/50 ML 1 GM/50 ML BAG IV SCH (10:29)
[2019-02-06] MEDS: SODIUM CHLORIDE FLUSH SYRINGE 10 ML IV SCH (10:29)
[2019-02-06] MEDS: REMERON PO SCH (10:29)
== END 2019-02-06 12:10 | disposition home or self-care (01) | DRG 291 ==
LOC: ED 21:22 → 4A 23:57
PROVIDERS: ADMIT Internal Medicine; ATTEND Internal Medicine
PROC: 5A09357 Assistance with Respiratory Ventilation, Less than 24 Consecutive Hours, Continuous Positive Airway Pressure (ICD-10-PCS; 2019-02-01)
PROC: 4A033R1 Measurement of Arterial Saturation, Peripheral, Percutaneous Approach (ICD-10-PCS; principal; 2019-02-02)
PROC: 5A09357 Assistance with Respiratory Ventilation, Less than 24 Consecutive Hours, Continuous Positive Airway Pressure (ICD-10-PCS; 2019-02-02)
PROC: 5A09357 Assistance with Respiratory Ventilation, Less than 24 Consecutive Hours, Continuous Positive Airway Pressure (ICD-10-PCS; 2019-02-03)
PROC: 5A09357 Assistance with Respiratory Ventilation, Less than 24 Consecutive Hours, Continuous Positive Airway Pressure (ICD-10-PCS; 2019-02-04)
PROC: 5A09357 Assistance with Respiratory Ventilation, Less than 24 Consecutive Hours, Continuous Positive Airway Pressure (ICD-10-PCS; 2019-02-06)
DX: I11.0 Hypertensive heart disease with heart failure (principal); J96.21 Acute and chronic respiratory failure with hypoxia; J44.1 Chronic obstructive pulmonary disease with (acute) exacerbation; Z68.43 Body mass index [BMI] 50.0-59.9, adult; I50.43 Acute on chronic combined systolic (congestive) and diastolic (congestive) heart failure; I42.9 Cardiomyopathy, unspecified; G47.33 Obstructive sleep apnea (adult) (pediatric); I27.81 Cor pulmonale (chronic); E66.01 Morbid (severe) obesity due to excess calories; F41.9 Anxiety disorder, unspecified; D64.9 Anemia, unspecified; Z88.5 Allergy status to narcotic agent; Z79.84 Long term (current) use of oral hypoglycemic drugs
CPT/HCPCS: 36415; 36600; 71045; 80048; 82550; 82553; 82803; 82962; 83880; 84484; 85007; 85025; 85610; 85730; 93005; 93010; 93306; 94640; 94644; 94660; 94760; G0378; A9270-GY; J0456; J0696; J1650; J1815; J1940; J2930; J7050

== ENCOUNTER 2020-01-09 18:17 | Inpatient (IN) | payer MEDICARE ==
--- NOTE | 2020-01-09 23:08 | Emergency Department Report ---
ED Shortness of Breath HPI - General Chief Complaint: Dyspnea/Respdistress Stated Complaint: TOSHA Time Seen by Provider: 01/09/20 23:04 Source: patient Mode of arrival: Ambulatory Limitations: No Limitations - History of Present Illness Initial Comments: Patient is a 54-year-old female who presents emergency room with complaints of difficulties breathing. Patient states her symptoms started this morning. Patient states her symptoms are worsening. Patient states she also feels like she is retaining fluid. Patient states she feels swollen all over. Patient states she has history of COPD and CHF. Patient denies chest pain. Patient states that her shortness of breath is worse with exertion and better with rest. Patient also complaining of dyspnea on exertion. Patient states with minimal exertion she is out of breath. Patient denies fever and chills. Patient denies cough. Patient denies nausea vomiting. Patient denies diaphoresis. Patient denies recent travel. Patient denies recent international travel. Patient denies exposure to the novel coronavirus. Patient denies sick contacts. Patient denies fever and chills. Patient denies cough. Patient denies diarrhea. Patient denies coming in contact with anybody with symptoms of the novel coronavirus. MD Complaint: shortness of breath -: Sudden Severity: severe Consistency: constant Improves With: oxygen, rest Worsens With: lying flat, exertion Known History Of: COPD, congestive heart failure - Related Data Home Oxygen Therapy: Yes Home Oxygen Amount: 2 Liters Home Medications Medication Instructions Recorded Confirmed Last Taken Montelukast [Singulair] 10 mg PO QPM 02/02/19 01/10/20 01/08/20 Remeron 30mg TAB 30 mg PO HS 02/02/19 01/10/20 01/08/20 Amitriptyline 50 mg PO HS 01/10/20 01/10/20 01/08/20 Atorvastatin Calcium [Lipitor] 80 mg PO HS 01/10/20 01/10/20 01/08/20 Furosemide [Lasix TAB] 40 mg PO BID 01/10/20 01/10/20 01/09/20 Previous Rx's Medication Instructions Recorded Last Taken Type Fluticasone/Salmeterol [Advair 1 puff IH BID #1 disk.w.dev 02/05/19 01/09/20 Rx Diskus 100-50 mcg] Albuterol Mdi (or & Nicu Only) 2 puff IH QID PRN #1 inhalation 08/31/19 01/09/20 Rx [ProAir HFA Inhaler] Gabapentin [Neurontin] 600 mg PO Q8H #90 08/31/19 01/09/20 Rx Ipratropium/Albuterol Sulfate 1 ampul IH TIDRT PRN #30 ampul.neb 08/31/19 01/09/20 Rx [DUONEB *Not for PRN Use*] Losartan [Cozaar] 25 mg PO QDAY #30 tablet 08/31/19 01/09/20 Rx Metoprolol Xl [Metoprolol 25 mg PO QDAY #30 tablet 08/31/19 01/09/20 Rx SUCCINATE ER TAB] Spironolactone [Aldactone] 25 mg PO QDAY #30 tablet 08/31/19 01/09/20 Rx dilTIAZem [Cardizem] 240 mg PO DAILY #30 tab 08/31/19 01/09/20 Rx glipiZIDE 10 mg PO BID #60 08/31/19 01/09/20 Rx Allergies Allergy/AdvReac Type Severity Reaction Status Date / Time morphine Allergy Unknown Verified 02/02/19 01:44 ED Review of Systems ROS: Stated complaint: TOSHA Other details as noted in HPI Constitutional: denies: chills, fever Eyes: denies: eye pain, eye discharge, vision change ENT: denies: ear pain, throat pain Respiratory: shortness of breath, SOB with exertion, SOB at rest. denies: cough, wheezing Cardiovascular: dyspnea on exertion, edema. denies: chest pain, palpitations Endocrine: no symptoms reported Gastrointestinal: denies: abdominal pain, nausea, diarrhea Genitourinary: denies: urgency, dysuria, discharge Musculoskeletal: denies: back pain, joint swelling, arthralgia Skin: denies: rash, lesions Neurological: denies: headache, weakness, paresthesias Psychiatric: denies: anxiety, depression Hematological/Lymphatic: denies: easy bleeding, easy bruising ED Past Medical Hx - Past Medical History Previous Medical History?: Yes Hx Hypertension: Yes Hx Heart Attack/AMI: No Hx Congestive Heart Failure: Yes Hx Diabetes: Yes Hx Deep Vein Thrombosis: No Hx Pulmonary Embolism: No Hx GERD: No Hx Liver Disease: No Hx Sickle Cell Disease: No Hx Arthritis: Yes Hx Headaches / Migraines: No Hx Asthma: Yes Hx COPD: Yes Hx Tuberculosis: No Hx HIV: No - Surgical History Past Surgical History?: Yes Hx Coronary Stent: No Hx Open Heart Surgery: No Hx Pacemaker: No Hx Internal Defibrillator: No Hx Cholecystectomy: No Hx Appendectomy: No Hx Breast Surgery: No Additional Surgical History: R Knee - Family History Family history: no significant - Social History Smoking Status: Never Smoker Substance Use Type: None - Medications Home Medications: Home Medications Medication Instructions Recorded Confirmed Last Taken Type Montelukast [Singulair] 10 mg PO QPM 02/02/19 01/10/20 01/08/20 History Remeron 30mg TAB 30 mg PO HS 02/02/19 01/10/20 01/08/20 History Fluticasone/Salmeterol [Advair 1 puff IH BID #1 disk.w.dev 02/05/19 01/10/20 01/09/20 Rx Diskus 100-50 mcg] Albuterol Mdi (or & Nicu Only) 2 puff IH QID PRN #1 inhalation 08/31/19 01/10/20 01/09/20 Rx [ProAir HFA Inhaler] Gabapentin [Neurontin] 600 mg PO Q8H #90 08/31/19 01/10/20 01/09/20 Rx Ipratropium/Albuterol Sulfate 1 ampul IH TIDRT PRN #30 ampul.neb 08/31/19 01/10/20 01/09/20 Rx [DUONEB *Not for PRN Use*] Losartan [Cozaar] 25 mg PO QDAY #30 tablet 08/31/19 01/10/20 01/09/20 Rx Metoprolol Xl [Metoprolol 25 mg PO QDAY #30 tablet 08/31/19 01/10/20 01/09/20 Rx SUCCINATE ER TAB] Spironolactone [Aldactone] 25 mg PO QDAY #30 tablet 08/31/19 01/10/20 01/09/20 Rx dilTIAZem [Cardizem] 240 mg PO DAILY #30 tab 08/31/19 01/10/20 01/09/20 Rx glipiZIDE 10 mg PO BID #60 08/31/19 01/10/20 01/09/20 Rx Amitriptyline 50 mg PO HS 01/10/20 01/10/20 01/08/20 History Atorvastatin Calcium [Lipitor] 80 mg PO HS 01/10/20 01/10/20 01/08/20 History Furosemide [Lasix TAB] 40 mg PO BID 01/10/20 01/10/20 01/09/20 History ED Physical Exam - General Limitations: No Limitations General appearance: alert, in distress, obese - Head Head exam: Present: atraumatic, normocephalic - Eye Eye exam: Present: normal appearance, PERRL Pupils: Present: normal accommodation - ENT ENT exam: Present: mucous membranes moist - Neck Neck exam: Present: normal inspection - Respiratory Respiratory exam: Present: respiratory distress, rales, decreased breath sounds. Absent: wheezes - Cardiovascular Cardiovascular Exam: Present: regular rate, normal rhythm. Absent: systolic murmur, diastolic murmur, rubs, gallop - GI/Abdominal GI/Abdominal exam: Present: soft, distended, normal bowel sounds. Absent: tenderness - Extremities Exam Extremities exam: Present: normal inspection - Back Exam Back exam: Present: normal inspection - Neurological Exam Neurological exam: Present: alert, oriented X3 - Psychiatric Psychiatric exam: Present: normal affect, normal mood - Skin Skin exam: Present: warm, dry, intact, normal color. Absent: rash ED Course Vital Signs 01/09/20 01/10/20 18:22 01:41 Temperature 98.7 F Pulse Rate 98 H 86 Respiratory 22 16 Rate Blood Pressure 146/84 Blood Pressure 126/82 [Right] O2 Sat by Pulse 93 97 Oximetry - Reevaluation(s) Reevaluation #1: Initial evaluation done. Patient on her home oxygen but is still hypoxic and patient would increase by 2 L. 01/09/20 23:08 Reevaluation #2: Patient resting very comfortably. Patient oxygen saturation better. 01/10/20 00:48 Reevaluation #3: I discussed all results with patient. I discussed plan of care with patient. Patient agrees with plan of care and admission. Patient to be admitted to the hospitalist service. 01/10/20 01:49 - Consultations Consultation #1: Hospitalist consulted for admission. Hospitalist to admit patient. 01/10/20 01:49 ED Medical Decision Making - Lab Data Result diagrams: 01/09/20 23:13 08/19/20 23:13 - EKG Data -: EKG Interpreted by Me EKG shows normal: sinus rhythm, axis, intervals, QRS complexes, ST-T waves Rate: normal - Radiology Data Radiology results: report reviewed, image reviewed interpreted by me: Chest x-ray: Cardiomegaly noted. Film underpenetrated. No obvious rib deformities. No pneumothorax noted. CHEST 1 VIEW INDICATION / CLINICAL INFORMATION: Dyspnea. COMPARISON: 12/17/2019 FINDINGS: Please note the radiograph is slightly underpenetrated due to portable technique as well as patient's body habitus. SUPPORT DEVICES: None. HEART / MEDIASTINUM: Moderately enlarged, stable. LUNGS / PLEURA: No definite gross acute pulmonary or pleural disease. Please note radiograph is slightly underpenetrated. Additionally the left lung base is obscured by the enlarged heart. No pneumothorax. ADDITIONAL FINDINGS: No significant additional findings. IMPRESSION: 1. Limited evaluation, as detailed above. Given this limitation, I do not see any gross acute pulmonary disease. There is nonvisualization of the left lung base due to enlarged heart. - Medical Decision Making Patient is a 54-year-old female that presents emergency room with complaints of shortness of breath. Patient also complained of edema. Patient found to have a CHF exacerbation. Patient had labs done which were essentially unremarkable except for mild renal insufficiency. Patient had a chest x-ray done but due to her body habitus it was difficult to see the chest x-ray clearly. On the chest x-ray the patient was noted to have cardiomegaly. Patient given Lasix for CHF exacerbation. Patient also found to be hypoxic. Patient is on home O2 however the patient required more oxygen to stabilize pulse ox. Patient given IV Lasix. Patient admitted to the hospitalist service for further evaluation and treatment. Patient had a BNP checked due to the fact that the chest x-ray was inconclusive due to body habitus. Patient's BNP was elevated. - Differential Diagnosis CHF exacerbation, shortness of breath, dyspnea on exertion, hypoxia. Critical Care Time: Yes Critical care time in (mins) excluding proc time.: 35 Critical care attestation.: If time is entered above; I have spent that time in minutes in the direct care of this critically ill patient, excluding procedure time. Critical Care Time: 35 minutes ED Disposition Clinical Impression: SOB (shortness of breath), THOMAS (dyspnea on exertion), Hypoxia CHF exacerbation Qualifiers: Heart failure type: unspecified Qualified Code(s): I50.9 - Heart failure, unspecified Acute and chronic respiratory failure Qualifiers: Respiratory failure complication: hypoxia Qualified Code(s): J96.21 - Acute and chronic respiratory failure with hypoxia Disposition: OP ADMIT IP TO THIS HOSP Is pt being admited?: Yes Does the pt Need Aspirin: No Condition: Critical Time of Disposition: 01:54
--- NOTE | 2020-01-09 23:57 | XRay Report ---
CHEST 1 VIEW INDICATION / CLINICAL INFORMATION: Dyspnea. COMPARISON: 12/17/2019 FINDINGS: Please note the radiograph is slightly underpenetrated due to portable technique as well as patient's body habitus. SUPPORT DEVICES: None. HEART / MEDIASTINUM: Moderately enlarged, stable. LUNGS / PLEURA: No definite gross acute pulmonary or pleural disease. Please note radiograph is sligh tly underpenetrated. Additionally the left lung base is obscured by the enlarged heart. No pneumothor ax. ADDITIONAL FINDINGS: No significant additional findings. IMPRESSION: 1. Limited evaluation, as detailed above. Given this limitation, I do not see any gross acute pulmona ry disease. There is nonvisualization of the left lung base due to enlarged heart. Signer Name: Rylie Boothe MD Signed: 01/09/2020 11:53 PM Workstation Name: [id number]
[2020-01-09 23:58] LABS: Basophils # (Auto) 0.1 K/mm3 (0.0-0.1); Basophils % (Auto) 1.1 % (0.0-1.8); Eosinophils # (Auto) 0.3 K/mm3 (0.0-0.4); Eosinophils % (Auto) 3.5 % (0.0-4.3); Hematocrit 30.6 % (30.3-42.9); Hemoglobin 9.6 gm/dl (10.1-14.3); Lymphocytes # (Auto) 1.1 K/mm3 (1.2-5.4); Lymphocytes % (Auto) 13.4 % (13.4-35.0); Mean Corpuscular HGB Conc 31 % (30-34); Mean Corpuscular Volume 89 fl (79-97); Monocytes # (Auto) 0.6 K/mm3 (0.0-0.8); Monocytes % (Auto) 7.5 % (0.0-7.3); Platelet Count 286 K/mm3 (140-440); Red Blood Count 3.45 M/mm3 (3.65-5.03); Red Cell Distribution Width 19.6 % (13.2-15.2)
[2020-01-10 00:10] LABS: Creatine Kinase MB 1.7 ng/mL (0.0-4.0)
[2020-01-10 00:11] LABS: Albumin 3.9 g/dL (3.9-5); Calcium 9.4 mg/dL (8.4-10.2)
[2020-01-10] MEDS ORDERED: FUROSEMIDE 40 MG/4 ML INJ IV ONE (01:49)
--- NOTE | 2020-01-10 03:08 | History and Physical Report ---
History of Present Illness Date of examination: 01/10/20 Date of admission: 01/10/20 01:56 Chief complaint: Shortness of breath History of present illness: Patient is a 54-year-old female with known history of hypertension, CHF, COPD, diabetes mellitus presenting to the emergency room today complaining of shortness of breath which started this morning. Shortness of breath is said to be worse on exertion improves upon resting. She denies any chest pain, denies any fever or chills, denies any cough, denies any nausea vomiting and denies any diaphoresis. Patient denies any sick contacts and no recent travel. Denies any contact with anyone with COVID-19. Patient was slightly hypoxic upon arrival in the emergency room. Work-up today is consistent with CHF. Past History Past Medical History: COPD, diabetes, heart failure, hypertension Past Surgical History: Other (Right knee surgery) Social history: no significant social history Family history: no significant family history Medications and Allergies Allergies Allergy/AdvReac Type Severity Reaction Status Date / Time morphine Allergy Unknown Verified 02/02/19 01:44 Home Medications Medication Instructions Recorded Confirmed Last Taken Type Montelukast [Singulair] 10 mg PO QPM 02/02/19 01/10/20 01/08/20 History Remeron 30mg TAB 30 mg PO HS 02/02/19 01/10/20 01/08/20 History Fluticasone/Salmeterol [Advair 1 puff IH BID #1 disk.w.dev 02/05/19 01/10/20 01/09/20 Rx Diskus 100-50 mcg] Albuterol Mdi (or & Nicu Only) 2 puff IH QID PRN #1 inhalation 08/31/19 01/10/20 01/09/20 Rx [ProAir HFA Inhaler] Gabapentin [Neurontin] 600 mg PO Q8H #90 08/31/19 01/10/20 01/09/20 Rx Ipratropium/Albuterol Sulfate 1 ampul IH TIDRT PRN #30 ampul.neb 08/31/19 01/10/20 01/09/20 Rx [DUONEB *Not for PRN Use*] Losartan [Cozaar] 25 mg PO QDAY #30 tablet 08/31/19 01/10/20 01/09/20 Rx Metoprolol Xl [Metoprolol 25 mg PO QDAY #30 tablet 08/31/19 01/10/20 01/09/20 Rx SUCCINATE ER TAB] Spironolactone [Aldactone] 25 mg PO QDAY #30 tablet 08/31/19 01/10/20 01/09/20 Rx dilTIAZem [Cardizem] 240 mg PO DAILY #30 tab 08/31/19 01/10/20 01/09/20 Rx glipiZIDE 10 mg PO BID #60 08/31/19 01/10/20 01/09/20 Rx Amitriptyline 50 mg PO HS 01/10/20 01/10/20 01/08/20 History Atorvastatin Calcium [Lipitor] 80 mg PO HS 01/10/20 01/10/20 01/08/20 History Furosemide [Lasix TAB] 40 mg PO BID 01/10/20 01/10/20 01/09/20 History Review of Systems Constitutional: no fever, no chills Ears, nose, mouth and throat: no nasal congestion, no sore throat Cardiovascular: no chest pain, no palpitations Respiratory: shortness of breath, no cough Gastrointestinal: no abdominal pain, no nausea, no vomiting, no diarrhea Genitourinary Female: no pelvic pain, no flank pain, no dysuria Musculoskeletal: neck stiffness, no low back pain Integumentary: no rash, no pruritis Neurological: headaches, no confusion Psychiatric: no anxiety, no depression Exam - Constitutional Vitals: Temp Pulse Resp BP Pulse Ox 98.7 F 86 16 126/82 97 01/09/20 18:22 01/10/20 01:41 01/10/20 01:41 01/10/20 01:41 01/10/20 01:41 General appearance: Present: no acute distress, well-nourished, obese - EENT Eyes: Present: PERRL, EOM intact. Absent: scleral icterus ENT: hearing intact, clear oral mucosa, dentition normal - Neck Neck: Present: supple, normal ROM - Respiratory Respiratory effort: normal Respiratory: bilateral: rales - Cardiovascular Rhythm: regular Heart Sounds: Present: S1 & S2. Absent: gallop, systolic murmur, diastolic murmur, rub - Extremities Extremities: no ischemia, pulses intact, Full ROM Extremity abnormal: edema (1+ marybel . ankle edema) Peripheral Pulses: within normal limits - Abdominal General gastrointestinal: Present: soft, non-tender, non-distended, normal bowel sounds. Absent: mass - Integumentary Integumentary: Present: clear, warm, dry - Musculoskeletal Musculoskeletal: strength equal bilaterally - Psychiatric Psychiatric: appropriate mood/affect, intact judgment & insight, cooperative - Neurologic Neurologic: CNII-XII intact, no focal deficits, moves all extremities HEART Score - HEART Score Troponin: Troponin T < 0.010 ng/mL (0.00-0.029) 01/09/20 23:13 Results - Labs CBC & Chem 7: 01/09/20 23:13 01/09/20 23:13 Labs: Abnormal lab results 01/09/20 01/09/20 01/10/20 Range/Units 23:13 23:13 00:44 RBC 3.45 L (3.65-5.03) M/mm3 Hgb 9.6 L (10.1-14.3) gm/dl RDW 19.6 H (13.2-15.2) % [place] % (Auto) 7.5 H (0.0-7.3) % Lymph # 1.1 L (1.2-5.4) K/mm3 Seg Neutrophils % 74.5 H (40.0-70.0) % BUN 21 H (7-17) mg/dL Creatinine 1.3 H (0.6-1.2) mg/dL Glucose 195 H (65-100) mg/dL Alkaline Phosphatase 161 H (35-129) units/L NT-Pro-B Natriuret Pep 1873 H (0-900) pg/mL Assessment and Plan - Patient Problems (1) CHF exacerbation Current Visit: Yes Status: Acute Qualifiers: Heart failure type: unspecified Qualified Code(s): I50.9 - Heart failure, unspecified Plan to address problem: Patient admitted and placed on diuretics. Will monitor input and output and also monitor daily weights. Patient will be scheduled for echocardiogram. (2) Hypoxia Current Visit: Yes Status: Acute Plan to address problem: We will keep O2 saturation greater or equal to 92%. (3) Diabetes mellitus Current Visit: No Status: Acute Plan to address problem: We will monitor Accu-Cheks closely. We will resume routine home medications once reconciled. (4) DVT prophylaxis Current Visit: No Status: Acute Plan to address problem: Patient placed on subcutaneous heparin. (5) Full code status Current Visit: No Status: Acute
--- NOTE | 2020-01-10 09:59 | Progress Note ---
Assessment and Plan Assessment and plan: Acute systolic HF. Echo performed 11/2019 revealed a RVSP of 59 mmHg, dilated right heart chambers with moderately severe pulmonary hypertension. There is also LV systolic dysfunction, ejection fraction 30-35%. Consult Cardiology. Place on HF pathway Hx of COPD on home oxygen. Cont. O2 Pulmonary HTN with cor pulmonale. As above. Hx of obstructive sleep apnea on BiPAP Morbid obesity. Acute on chronic resp failure. Etiology secondary to above Dilated Cardiomyopathy History Interval history: No new issues overnight Hospitalist Physical - Constitutional Vitals: Temp Pulse Resp BP Pulse Ox 97.9 F 95 H 20 134/76 91 01/10/20 08:27 01/10/20 08:27 01/10/20 08:27 01/10/20 08:27 01/10/20 08:27 General appearance: Present: no acute distress, well-nourished, obese - EENT Eyes: Present: PERRL, EOM intact ENT: hearing intact, clear oral mucosa, dentition normal - Neck Neck: Present: supple, normal ROM - Respiratory Respiratory effort: normal Respiratory: bilateral: CTA - Cardiovascular Rhythm: regular Heart Sounds: Present: S1 & S2. Absent: gallop, rub - Extremities Extremities: no ischemia, No edema, Full ROM - Abdominal General gastrointestinal: soft, non-tender, non-distended, normal bowel sounds - Integumentary Integumentary: Present: clear, warm, dry - Neurologic Neurologic: CNII-XII intact, moves all extremities HEART Score - HEART Score Troponin: Troponin T < 0.010 ng/mL (0.00-0.029) 01/09/20 23:13 Results - Labs CBC & Chem 7: 01/09/20 23:13 01/09/20 23:13 Labs: Laboratory Last Values WBC 8.1 K/mm3 (4.5-11.0) 01/09/20 23:13 RBC 3.45 M/mm3 (3.65-5.03) L 01/09/20 23:13 Hgb 9.6 gm/dl (10.1-14.3) L 01/09/20 23:13 Hct 30.6 % (30.3-42.9) 01/09/20 23:13 MCV 89 fl (79-97) 01/09/20 23:13 MCH 28 pg (28-32) 01/09/20 23:13 MCHC 31 % (30-34) 01/09/20 23:13 RDW 19.6 % (13.2-15.2) H 01/09/20 23:13 Plt Count 286 K/mm3 (140-440) 01/09/20 23:13 Lymph % (Auto) 13.4 % (13.4-35.0) 01/09/20 23:13 [place] % (Auto) 7.5 % (0.0-7.3) H 01/09/20 23:13 Eos % (Auto) 3.5 % (0.0-4.3) 01/09/20 23:13 Baso % (Auto) 1.1 % (0.0-1.8) 01/09/20 23:13 Lymph # 1.1 K/mm3 (1.2-5.4) L 01/09/20 23:13 [place] # 0.6 K/mm3 (0.0-0.8) 01/09/20 23:13 Eos # 0.3 K/mm3 (0.0-0.4) 01/09/20 23:13 Baso # 0.1 K/mm3 (0.0-0.1) 01/09/20 23:13 Seg Neutrophils % 74.5 % (40.0-70.0) H 01/09/20 23:13 Seg Neutrophils # 6.0 K/mm3 (1.8-7.7) 01/09/20 23:13 Sodium 141 mmol/L (137-145) 01/09/20 23:13 Potassium 4.4 mmol/L (3.6-5.0) 01/09/20 23:13 Chloride 101.3 mmol/L (98-107) 01/09/20 23:13 Carbon Dioxide 28 mmol/L (22-30) 01/09/20 23:13 Anion Gap 16 mmol/L 01/09/20 23:13 BUN 21 mg/dL (7-17) H 01/09/20 23:13 Creatinine 1.3 mg/dL (0.6-1.2) H 01/09/20 23:13 Estimated GFR 52 ml/min 01/09/20 23:13 BUN/Creatinine Ratio 16 % 01/09/20 23:13 Glucose 195 mg/dL (65-100) H 01/09/20 23:13 Lactic Acid 0.90 mmol/L (0.7-2.0) 01/09/20 23:13 Calcium 9.4 mg/dL (8.4-10.2) 01/09/20 23:13 Total Bilirubin 0.40 mg/dL (0.1-1.2) 01/09/20 23:13 AST 17 units/L (5-40) 01/09/20 23:13 ALT 15 units/L (7-56) 01/09/20 23:13 Alkaline Phosphatase 161 units/L (35-129) H 01/09/20 23:13 Total Creatine Kinase 102 units/L (30-135) 01/09/20 23:13 CK-MB (CK-2) 1.7 ng/mL (0.0-4.0) 01/09/20 23:13 CK-MB (CK-2) Rel Index 1.6 (0-4) 01/09/20 23:13 Troponin T < 0.010 ng/mL (0.00-0.029) 01/09/20 23:13 NT-Pro-B Natriuret Pep 1873 pg/mL (0-900) H 01/10/20 00:44 Total Protein 7.7 g/dL (6.3-8.2) 01/09/20 23:13 Albumin 3.9 g/dL (3.9-5) 01/09/20 23:13 Albumin/Globulin Ratio 1.0 % 01/09/20 23:13 Rogers/IV: Voiding Method Toilet IV Catheter Type [Left Hand] INT / Saline Lock
[2020-01-10] MEDS: FUROSEMIDE 40 MG/4 ML INJ IV SCH (10:15)
--- NOTE | 2020-01-10 11:41 | Consultation ---
History of Present Illness Consult date: 01/10/20 Consult reason: congestive heart failure History of present illness: 54-year old morbidly obese woman with COPD on home oxygen, obstructive sleep apnea on BiPAP, pulmonary hypertension and cor pulmonale. An echocardiogram done a month ago showed persistent right heart enlargement, flattened interventricular septum consistent with right heart pressure and volume overload. The calculated pulmonary artery systolic pressure on this study is 44, improved from 9 months ago when the PA systolic pressure was 70 on her previous echocardiogram. There was also moderate left heart dysfunction with left ventricular ejection fraction 35-40%. Patient presents to the hospital with lower extremity edema and increase abdominal girth. She denies unusual shortness of breath. Denies chest pain. Lower extremity edema is minimal. 12 lead EKG is normal sinus rhythm with low voltage. A cardiac consultation has been requested for CHF evaluation. Past History Past Surgical History: Other (Right knee surgery) Social history: no significant social history Family history: no significant family history Medications and Allergies Allergies Allergy/AdvReac Type Severity Reaction Status Date / Time morphine Allergy Unknown Verified 02/02/19 01:44 Home Medications Medication Instructions Recorded Confirmed Last Taken Type Montelukast [Singulair] 10 mg PO QPM 02/02/19 01/10/20 01/08/20 History Remeron 30mg TAB 30 mg PO HS 02/02/19 01/10/20 01/08/20 History Fluticasone/Salmeterol [Advair 1 puff IH BID #1 disk.w.dev 02/05/19 01/10/20 01/09/20 Rx Diskus 100-50 mcg] Albuterol Mdi (or & Nicu Only) 2 puff IH QID PRN #1 inhalation 08/31/19 01/10/20 01/09/20 Rx [ProAir HFA Inhaler] Gabapentin [Neurontin] 600 mg PO Q8H #90 08/31/19 01/10/20 01/09/20 Rx Ipratropium/Albuterol Sulfate 1 ampul IH TIDRT PRN #30 ampul.neb 08/31/19 01/10/20 01/09/20 Rx [DUONEB *Not for PRN Use*] Losartan [Cozaar] 25 mg PO QDAY #30 tablet 08/31/19 01/10/20 01/09/20 Rx Metoprolol Xl [Metoprolol 25 mg PO QDAY #30 tablet 08/31/19 01/10/20 01/09/20 Rx SUCCINATE ER TAB] Spironolactone [Aldactone] 25 mg PO QDAY #30 tablet 08/31/19 01/10/20 01/09/20 Rx dilTIAZem [Cardizem] 240 mg PO DAILY #30 tab 08/31/19 01/10/20 01/09/20 Rx glipiZIDE 10 mg PO BID #60 08/31/19 01/10/20 01/09/20 Rx Amitriptyline 50 mg PO HS 01/10/20 01/10/20 01/08/20 History Atorvastatin Calcium [Lipitor] 80 mg PO HS 01/10/20 01/10/20 01/08/20 History Furosemide [Lasix TAB] 40 mg PO BID 01/10/20 01/10/20 01/09/20 History Active Meds: Active Medications Furosemide (Lasix) 40 mg IV QDAY RADHA Last Admin: 01/10/20 10:15 Dose: 40 mg Documented by: Physical Examination Vital Signs Temp Pulse Resp BP Pulse Ox 98.7 F 98 H 22 146/84 93 01/09/20 18:22 01/09/20 18:22 01/09/20 18:22 01/09/20 18:22 01/09/20 18:22 General appearance: no acute distress, obese HEENT: Positive: PERRL Cardiac: Positive: Reg Rate and Rhythm Lungs: Positive: Decreased Breath Sounds Neuro: Positive: Grossly Intact Extremities: Absent: edema Results 01/09/20 23:13 01/09/20 23:13 Cardiac Enzymes 01/09/20 01/09/20 Range/Units 23:13 23:13 AST 17 (5-40) units/L CK-MB (CK-2) 1.7 (0.0-4.0) ng/mL CBC 01/09/20 Range/Units 23:13 WBC 8.1 (4.5-11.0) K/mm3 RBC 3.45 L (3.65-5.03) M/mm3 Hgb 9.6 L (10.1-14.3) gm/dl Hct 30.6 (30.3-42.9) % Plt Count 286 (140-440) K/mm3 Lymph # 1.1 L (1.2-5.4) K/mm3 [place] # 0.6 (0.0-0.8) K/mm3 Eos # 0.3 (0.0-0.4) K/mm3 Baso # 0.1 (0.0-0.1) K/mm3 Comprehensive Metabolic Panel 01/09/20 Range/Units 23:13 Sodium 141 (137-145) mmol/L Potassium 4.4 (3.6-5.0) mmol/L Chloride 101.3 (98-107) mmol/L Carbon Dioxide 28 (22-30) mmol/L BUN 21 H (7-17) mg/dL Creatinine 1.3 H (0.6-1.2) mg/dL Glucose 195 H (65-100) mg/dL Calcium 9.4 (8.4-10.2) mg/dL AST 17 (5-40) units/L ALT 15 (7-56) units/L Alkaline Phosphatase 161 H (35-129) units/L Total Protein 7.7 (6.3-8.2) g/dL Albumin 3.9 (3.9-5) g/dL Assessment and Plan Volume overload Pulmonary hypertension and cor pulmonale Chronic renal failure Morbid obesity Hx of COPD Hx of obstructive sleep apnea on BiPAP Dilated Cardiomyopathy Recommendations: Medical therapy for underlying cardiomyopathy. Lower extremity edema is minimal and is likely due to of right heart failure and chronic lung disease.
[2020-01-10] MEDS: IPRATROPIUM/ALBUTEROL SULFATE 3 ML AMPUL.NEB IH PRN ×2 (18:31→18:39)
[2020-01-10] MEDS ORDERED: IPRATROPIUM/ALBUTEROL SULFATE 3 ML AMPUL.NEB IH PRN (21:25)
[2020-01-10] MEDS ORDERED: NON-FORMULARY EACH (Fluticasone/Salmeterol [Advair Diskus 100-50 Mcg] 1 PUFF) IH SCH (22:00)
[2020-01-10] MEDS: GABAPENTIN 300 MG CAP PO SCH (22:10)
[2020-01-10] MEDS: AMITRIPTYLINE 25 MG TAB PO SCH (22:11)
[2020-01-11] MEDS: GABAPENTIN 300 MG CAP PO SCH ×3 (05:43→22:14)
[2020-01-11] MEDS: BUDESONIDE 0.5 MG/2 ML NEBU IH SCH ×2 (08:11→20:46)
[2020-01-11] MEDS: ARFORMOTEROL 15 MCG/2 ML NEBU IH SCH ×2 (08:12→20:46)
[2020-01-11] MEDS: LOSARTAN 25 MG TAB PO SCH (09:16)
[2020-01-11] MEDS: SPIRONOLACTONE 25 MG TAB PO SCH (09:16)
[2020-01-11] MEDS: METOPROLOL SUCCINATE XL 25 MG TAB PO SCH (09:17)
[2020-01-11] MEDS: FUROSEMIDE 40 MG/4 ML INJ IV SCH (09:17)
--- NOTE | 2020-01-11 09:43 | Progress Note ---
Assessment and Plan Volume overload Pulmonary hypertension and cor pulmonale Chronic renal failure Morbid obesity Hx of COPD on home oxygen Hx of obstructive sleep apnea on BiPAP Dilated Cardiomyopathy, EF 35-40% by echo 11/2019 Recommendations: Medical therapy for underlying cardiomyopathy. Pulmonary consultation for management of right heart failure and chronic lung disease. Otherwise, conservative cardiac management. Subjective Date of service: 01/11/20 Interval history: Patient reports her breathing is better and that she is diuresing well. Objective Vital Signs Temp Pulse Pulse Pulse Pulse Resp Resp 01/11/20 09:17 111 H 01/11/20 09:16 111 H 01/11/20 08:14 89 01/11/20 05:00 84 18 01/11/20 04:56 84 01/11/20 04:02 98.0 F 18 01/10/20 23:53 98.0 F 111 H 18 01/10/20 23:00 111 H 24 01/10/20 22:53 113 H 01/10/20 22:00 01/10/20 19:38 97.8 F 111 H 18 01/10/20 18:51 88 24 01/10/20 18:15 01/10/20 17:18 97.4 F L 108 H 18 01/10/20 11:53 97.5 F L 99 H 20 01/10/20 10:49 20 01/10/20 10:00 89 Resp BP Pulse Ox 01/11/20 09:17 128/67 01/11/20 09:16 128/67 01/11/20 08:14 20 95 01/11/20 05:00 94 01/11/20 04:56 01/11/20 04:02 119/68 01/10/20 23:53 137/78 94 01/10/20 23:00 95 01/10/20 22:53 01/10/20 22:00 95 01/10/20 19:38 131/74 87 01/10/20 18:51 01/10/20 18:15 99 01/10/20 17:18 141/84 90 01/10/20 11:53 147/80 94 01/10/20 10:49 96 01/10/20 10:00 - Physical Examination General: No Apparent Distress, Other (morbidly obese) HEENT: Positive: PERRL Neck: Positive: trachea midline Cardiac: Positive: Reg Rate and Rhythm Neuro: Positive: Grossly Intact Extremities: Absent: edema
--- NOTE | 2020-01-11 11:54 | Progress Note ---
Assessment and Plan Assessment and plan: Acute systolic HF. Echo performed 11/2019 revealed a RVSP of 59 mmHg, dilated right heart chambers with moderately severe pulmonary hypertension. There is also LV systolic dysfunction, ejection fraction 30-35%. Consult Cardiology. Place on HF pathway Hx of COPD on home oxygen. Cont. O2 Pulmonary HTN with cor pulmonale. As above. Hx of obstructive sleep apnea on BiPAP Morbid obesity. Acute on chronic resp failure. Etiology secondary to above Dilated Cardiomyopathy 01/11/2020. Patient reports dyspnea with minimal exertion such as walking to the bathroom. Continue medical therapy for underlying cardiomyopathy per cardiology. Pulmonary consultation pending for management of cor pulmonale and ES COPD. History Interval history: No new issues overnight Hospitalist Physical - Constitutional Vitals: Temp Pulse Resp BP Pulse Ox 97.5 F L 99 H 17 128/67 95 01/11/20 07:37 01/11/20 11:01 01/11/20 11:01 01/11/20 09:17 01/11/20 11:01 General appearance: Present: no acute distress, obese - EENT Eyes: Present: PERRL, EOM intact ENT: hearing intact, clear oral mucosa, dentition normal - Neck Neck: Present: supple, normal ROM - Respiratory Respiratory effort: normal Respiratory: bilateral: CTA - Cardiovascular Rhythm: regular Heart Sounds: Present: S1 & S2. Absent: gallop, rub - Extremities Extremities: no ischemia, No edema, Full ROM - Abdominal General gastrointestinal: soft, non-tender, non-distended, normal bowel sounds - Integumentary Integumentary: Present: clear, warm, dry - Neurologic Neurologic: CNII-XII intact, moves all extremities HEART Score - HEART Score Troponin: Troponin T < 0.010 ng/mL (0.00-0.029) 01/09/20 23:13 Results - Labs CBC & Chem 7: 01/09/20 23:13 01/09/20 23:13 Labs: Laboratory Last Values WBC 8.1 K/mm3 (4.5-11.0) 01/09/20 23:13 RBC 3.45 M/mm3 (3.65-5.03) L 01/09/20 23:13 Hgb 9.6 gm/dl (10.1-14.3) L 01/09/20 23:13 Hct 30.6 % (30.3-42.9) 01/09/20 23:13 MCV 89 fl (79-97) 01/09/20 23:13 MCH 28 pg (28-32) 01/09/20 23:13 MCHC 31 % (30-34) 01/09/20 23:13 RDW 19.6 % (13.2-15.2) H 01/09/20 23:13 Plt Count 286 K/mm3 (140-440) 01/09/20 23:13 Lymph % (Auto) 13.4 % (13.4-35.0) 01/09/20 23:13 [place] % (Auto) 7.5 % (0.0-7.3) H 01/09/20 23:13 Eos % (Auto) 3.5 % (0.0-4.3) 01/09/20 23:13 Baso % (Auto) 1.1 % (0.0-1.8) 01/09/20 23:13 Lymph # 1.1 K/mm3 (1.2-5.4) L 01/09/20 23:13 [place] # 0.6 K/mm3 (0.0-0.8) 01/09/20 23:13 Eos # 0.3 K/mm3 (0.0-0.4) 01/09/20 23:13 Baso # 0.1 K/mm3 (0.0-0.1) 01/09/20 23:13 Seg Neutrophils % 74.5 % (40.0-70.0) H 01/09/20 23:13 Seg Neutrophils # 6.0 K/mm3 (1.8-7.7) 01/09/20 23:13 Sodium 141 mmol/L (137-145) 01/09/20 23:13 Potassium 4.4 mmol/L (3.6-5.0) 01/09/20 23:13 Chloride 101.3 mmol/L (98-107) 01/09/20 23:13 Carbon Dioxide 28 mmol/L (22-30) 01/09/20 23:13 Anion Gap 16 mmol/L 01/09/20 23:13 BUN 21 mg/dL (7-17) H 01/09/20 23:13 Creatinine 1.3 mg/dL (0.6-1.2) H 01/09/20 23:13 Estimated GFR 52 ml/min 01/09/20 23:13 BUN/Creatinine Ratio 16 % 01/09/20 23:13 Glucose 195 mg/dL (65-100) H 01/09/20 23:13 Lactic Acid 0.90 mmol/L (0.7-2.0) 01/09/20 23:13 Calcium 9.4 mg/dL (8.4-10.2) 01/09/20 23:13 Total Bilirubin 0.40 mg/dL (0.1-1.2) 01/09/20 23:13 AST 17 units/L (5-40) 01/09/20 23:13 ALT 15 units/L (7-56) 01/09/20 23:13 Alkaline Phosphatase 161 units/L (35-129) H 01/09/20 23:13 Total Creatine Kinase 102 units/L (30-135) 01/09/20 23:13 CK-MB (CK-2) 1.7 ng/mL (0.0-4.0) 01/09/20 23:13 CK-MB (CK-2) Rel Index 1.6 (0-4) 01/09/20 23:13 Troponin T < 0.010 ng/mL (0.00-0.029) 01/09/20 23:13 NT-Pro-B Natriuret Pep 1873 pg/mL (0-900) H 01/10/20 00:44 Total Protein 7.7 g/dL (6.3-8.2) 01/09/20 23:13 Albumin 3.9 g/dL (3.9-5) 01/09/20 23:13 Albumin/Globulin Ratio 1.0 % 01/09/20 23:13 Rogers/IV: Voiding Method Toilet IV Catheter Type [Left Hand] INT / Saline Lock Active Medications - Current Medications Current Medications: Generic Name Dose Route Start Last Admin Trade Name Freq PRN Reason Stop Dose Admin Albuterol/Ipratropium 1 ampul 01/10/20 18:01 01/10/20 18:39 Duoneb *Not For Prn Use* IH 01/15/20 18:00 1 ampul TIDRT PRN Administration sob Amitriptyline HCl 50 mg 01/10/20 22:00 01/10/20 22:11 Elavil PO 50 mg QHS RADHA Administration Arformoterol Tartrate 15 mcg 01/11/20 08:00 01/11/20 08:12 Brovana Nebu IH 15 mcg Q12HRT RADHA Administration Atorvastatin Calcium 80 mg 01/10/20 22:00 01/10/20 22:13 Lipitor PO 80 mg QHS RADHA Administration Budesonide 0.5 mg 01/11/20 08:00 01/11/20 08:11 Pulmicort IH 0.5 mg Q12HRT RADHA Administration Furosemide 40 mg 01/10/20 10:00 01/11/20 09:17 Lasix IV 40 mg QDAY RADHA Administration Gabapentin 600 mg 01/10/20 22:00 01/11/20 05:43 Gabapentin PO 600 mg Q8HR RADHA Administration Losartan Potassium 25 mg 01/11/20 10:00 01/11/20 09:16 Cozaar PO 25 mg QDAY RADHA Administration Metoprolol Succinate 25 mg 01/11/20 10:00 01/11/20 09:17 Metoprolol Xl PO 25 mg QDAY RADHA Administration Montelukast Sodium 10 mg 01/11/20 18:00 Singulair PO QPM RADHA Spironolactone 25 mg 01/11/20 10:00 01/11/20 09:16 Aldactone PO 25 mg QDAY RADHA Administration
[2020-01-11] MEDS: MONTELUKAST 10 MG TAB PO SCH (17:00)
[2020-01-11] MEDS: AMITRIPTYLINE 25 MG TAB PO SCH (22:14)
[2020-01-12] MEDS: GABAPENTIN 300 MG CAP PO SCH ×3 (06:05→21:49)
[2020-01-12] MEDS: BUDESONIDE 0.5 MG/2 ML NEBU IH SCH ×2 (07:28→20:50)
[2020-01-12] MEDS: ARFORMOTEROL 15 MCG/2 ML NEBU IH SCH ×2 (07:28→20:50)
[2020-01-12] MEDS: FUROSEMIDE 40 MG/4 ML INJ IV SCH ×2 (09:41→17:06)
[2020-01-12] MEDS: LOSARTAN 25 MG TAB PO SCH (09:41)
[2020-01-12] MEDS: METOPROLOL SUCCINATE XL 25 MG TAB PO SCH (09:42)
[2020-01-12] MEDS: SPIRONOLACTONE 25 MG TAB PO SCH (09:42)
--- NOTE | 2020-01-12 09:42 | Progress Note ---
Assessment and Plan 1. Chronic combined systolic and diastolic heart failure 2. Dilated cardiomyopathy 3. Chronic obstructive pulmonary disease 4. Morbid obesity 5. Obstructive sleep apnea Plan. Patient stable but still complains that she has a lot of fluid and is still fluid overloaded. She has mild dyspnea at rest. We will continue IV diuresis maintaining a negative fluid balance continue to monitor daily weights. Subjective Date of service: 01/12/20 Interval history: Shortness of breath and dyspnea Objective Vital Signs Temp Pulse Pulse Pulse Resp Resp BP 01/12/20 08:38 01/12/20 08:12 100 H 16 01/12/20 07:50 98.4 F 104 H 20 154/92 01/12/20 07:48 102 H 20 01/12/20 05:24 98 F 68 01/12/20 00:06 98.0 F 103 H 18 135/94 01/11/20 22:00 109 H 01/11/20 20:51 01/11/20 20:46 116 H 15 01/11/20 19:47 98.0 F 109 H 18 148/70 01/11/20 16:02 98.1 F 108 H 20 119/85 01/11/20 12:00 98.7 F 01/11/20 11:59 105 H 135/87 01/11/20 11:01 99 H 17 01/11/20 10:00 99 H BP Pulse Ox 01/12/20 08:38 100 01/12/20 08:12 98 01/12/20 07:50 95 01/12/20 07:48 01/12/20 05:24 131/64 01/12/20 00:06 97 01/11/20 22:00 01/11/20 20:51 92 01/11/20 20:46 01/11/20 19:47 93 01/11/20 16:02 92 01/11/20 12:00 01/11/20 11:59 91 01/11/20 11:01 95 01/11/20 10:00 - Physical Examination General: No Apparent Distress, Other (morbidly obese) HEENT: Positive: PERRL Neck: Positive: trachea midline Cardiac: Positive: Regular Rate, Regular Rhythm, S1/S2, S3, PMI, Dilated, Laterally Displaced Lungs: Positive: clear to auscultation, No Wheeze, Rales, Rhonchi Neuro: Positive: Grossly Intact Extremities: Present: edema, +1 Edema
--- NOTE | 2020-01-12 10:20 | Progress Note ---
Assessment and Plan Assessment and plan: Acute combined systolic and diastolic HF. Echo performed 11/2019 revealed a RVSP of 59 mmHg, dilated right heart chambers with moderately severe pulmonary hypertension. There is also LV systolic dysfunction, ejection fraction 30-35%. Consult Cardiology. Place on HF pathway Hx of COPD on home oxygen. Cont. O2 Pulmonary HTN with cor pulmonale. As above. Hx of obstructive sleep apnea on BiPAP Obesity hypoventilation syndrome. Morbid obesity. Acute on chronic resp failure. Etiology secondary to above Dilated Cardiomyopathy 01/11/2020. Patient reports dyspnea with minimal exertion such as walking to the bathroom. Continue medical therapy for underlying cardiomyopathy per cardiology. Pulmonary consultation pending for management of cor pulmonale and ES COPD. 01/12/2020. Patient still with dyspnea at rest and minimal exertion. Continue IV diuresis to maintain negative fluid balance. Spironolactone, losartan and Lasix IV twice daily. Await pulmonary evaluation. Continue Singulair, bronchodilators/nebulizer treatments and Pulmicort. History Interval history: No new issues overnight Hospitalist Physical - Constitutional Vitals: Temp Pulse Resp BP Pulse Ox 98.4 F 99 H 16 136/88 100 01/12/20 07:50 01/12/20 09:42 01/12/20 08:12 01/12/20 09:42 01/12/20 08:38 General appearance: Present: no acute distress, obese - EENT Eyes: Present: PERRL, EOM intact ENT: hearing intact, clear oral mucosa, dentition normal - Neck Neck: Present: supple, normal ROM - Respiratory Respiratory effort: normal Respiratory: bilateral: CTA - Cardiovascular Rhythm: regular Heart Sounds: Present: S1 & S2. Absent: gallop, rub - Extremities Extremities: no ischemia, No edema, Full ROM - Abdominal General gastrointestinal: soft, non-tender, non-distended, normal bowel sounds - Integumentary Integumentary: Present: clear, warm, dry - Neurologic Neurologic: CNII-XII intact, moves all extremities HEART Score - HEART Score Troponin: Troponin T < 0.010 ng/mL (0.00-0.029) 01/09/20 23:13 Results - Labs CBC & Chem 7: 01/09/20 23:13 01/09/20 23:13 Labs: Laboratory Last Values WBC 8.1 K/mm3 (4.5-11.0) 01/09/20 23:13 RBC 3.45 M/mm3 (3.65-5.03) L 01/09/20 23:13 Hgb 9.6 gm/dl (10.1-14.3) L 01/09/20 23:13 Hct 30.6 % (30.3-42.9) 01/09/20 23:13 MCV 89 fl (79-97) 01/09/20 23:13 MCH 28 pg (28-32) 01/09/20 23:13 MCHC 31 % (30-34) 01/09/20 23:13 RDW 19.6 % (13.2-15.2) H 01/09/20 23:13 Plt Count 286 K/mm3 (140-440) 01/09/20 23:13 Lymph % (Auto) 13.4 % (13.4-35.0) 01/09/20 23:13 [place] % (Auto) 7.5 % (0.0-7.3) H 01/09/20 23:13 Eos % (Auto) 3.5 % (0.0-4.3) 01/09/20 23:13 Baso % (Auto) 1.1 % (0.0-1.8) 01/09/20 23:13 Lymph # 1.1 K/mm3 (1.2-5.4) L 01/09/20 23:13 [place] # 0.6 K/mm3 (0.0-0.8) 01/09/20 23:13 Eos # 0.3 K/mm3 (0.0-0.4) 01/09/20 23:13 Baso # 0.1 K/mm3 (0.0-0.1) 01/09/20 23:13 Seg Neutrophils % 74.5 % (40.0-70.0) H 01/09/20 23:13 Seg Neutrophils # 6.0 K/mm3 (1.8-7.7) 01/09/20 23:13 Sodium 141 mmol/L (137-145) 01/09/20 23:13 Potassium 4.4 mmol/L (3.6-5.0) 01/09/20 23:13 Chloride 101.3 mmol/L (98-107) 01/09/20 23:13 Carbon Dioxide 28 mmol/L (22-30) 01/09/20 23:13 Anion Gap 16 mmol/L 01/09/20 23:13 BUN 21 mg/dL (7-17) H 01/09/20 23:13 Creatinine 1.3 mg/dL (0.6-1.2) H 01/09/20 23:13 Estimated GFR 52 ml/min 01/09/20 23:13 BUN/Creatinine Ratio 16 % 01/09/20 23:13 Glucose 195 mg/dL (65-100) H 01/09/20 23:13 Lactic Acid 0.90 mmol/L (0.7-2.0) 01/09/20 23:13 Calcium 9.4 mg/dL (8.4-10.2) 01/09/20 23:13 Total Bilirubin 0.40 mg/dL (0.1-1.2) 01/09/20 23:13 AST 17 units/L (5-40) 01/09/20 23:13 ALT 15 units/L (7-56) 01/09/20 23:13 Alkaline Phosphatase 161 units/L (35-129) H 01/09/20 23:13 Total Creatine Kinase 102 units/L (30-135) 01/09/20 23:13 CK-MB (CK-2) 1.7 ng/mL (0.0-4.0) 01/09/20 23:13 CK-MB (CK-2) Rel Index 1.6 (0-4) 01/09/20 23:13 Troponin T < 0.010 ng/mL (0.00-0.029) 01/09/20 23:13 NT-Pro-B Natriuret Pep 1873 pg/mL (0-900) H 01/10/20 00:44 Total Protein 7.7 g/dL (6.3-8.2) 01/09/20 23:13 Albumin 3.9 g/dL (3.9-5) 01/09/20 23:13 Albumin/Globulin Ratio 1.0 % 01/09/20 23:13 Rogers/IV: Voiding Method Toilet IV Catheter Type [Left Hand] INT / Saline Lock Active Medications - Current Medications Current Medications: Generic Name Dose Route Start Last Admin Trade Name Freq PRN Reason Stop Dose Admin Albuterol/Ipratropium 1 ampul 01/10/20 18:01 01/10/20 18:39 Duoneb *Not For Prn Use* IH 01/15/20 18:00 1 ampul TIDRT PRN Administration sob Amitriptyline HCl 50 mg 01/10/20 22:00 01/11/20 22:14 Elavil PO 50 mg QHS RADHA Administration Arformoterol Tartrate 15 mcg 01/11/20 08:00 01/12/20 07:28 Brovana Nebu IH 15 mcg Q12HRT RADHA Administration Atorvastatin Calcium 80 mg 01/10/20 22:00 01/11/20 22:13 Lipitor PO 80 mg QHS RADHA Administration Budesonide 0.5 mg 01/11/20 08:00 01/12/20 07:28 Pulmicort IH 0.5 mg Q12HRT RADHA Administration Furosemide 80 mg 01/12/20 18:00 Lasix IV 0600,1800 RADHA Gabapentin 600 mg 01/10/20 22:00 01/12/20 06:05 Gabapentin PO 600 mg Q8HR RADHA Administration Losartan Potassium 25 mg 01/11/20 10:00 01/12/20 09:41 Cozaar PO 25 mg QDAY RADHA Administration Metoprolol Succinate 25 mg 01/11/20 10:00 01/12/20 09:42 Metoprolol Xl PO 25 mg QDAY RADHA Administration Montelukast Sodium 10 mg 01/11/20 18:00 01/11/20 17:00 Singulair PO 10 mg QPM RADHA Administration Spironolactone 25 mg 01/11/20 10:00 01/12/20 09:42 Aldactone PO 25 mg QDAY RADHA Administration
[2020-01-12] MEDS: MONTELUKAST 10 MG TAB PO SCH (17:06)
--- NOTE | 2020-01-12 18:35 | Consultation ---
History of Present Illness Consult date: 01/12/20 Requesting physician: BANG NG Reason for consult: dyspnea History of present illness: Pt. well known to me. She has COPD and CHF. She has gained 60 pounds in the past few weeks with increased SOB, LE edema. No fevers, chills, chest pain, cough, sputum, hemoptysis. Admits to noncompliance with low-sodium diet. Active Medications Albuterol/Ipratropium (Duoneb *Not For Prn Use*) 1 ampul IH TIDRT PRN PRN Reason: sob Stop: 01/15/20 18:00 Last Admin: 01/10/20 18:39 Dose: 1 ampul Documented by: Amitriptyline HCl (Elavil) 50 mg PO QHS [facility] Last Admin: 01/11/20 22:14 Dose: 50 mg Documented by: Arformoterol Tartrate (Brovana Nebu) 15 mcg IH Q12HRT [facility] Last Admin: 01/12/20 07:28 Dose: 15 mcg Documented by: Atorvastatin Calcium (Lipitor) 80 mg PO QHS [facility] Last Admin: 01/11/20 22:13 Dose: 80 mg Documented by: Budesonide (Pulmicort) 0.5 mg IH Q12HRT [facility] Last Admin: 01/12/20 07:28 Dose: 0.5 mg Documented by: Furosemide (Lasix) 80 mg IV 0600,1800 [facility] Last Admin: 01/12/20 17:06 Dose: 80 mg Documented by: Gabapentin (Gabapentin) 600 mg PO Q8HR [facility] Last Admin: 01/12/20 13:13 Dose: 600 mg Documented by: Heparin Sodium (Porcine) (Heparin) 5,000 unit SUB-Q Q8HR [facility] Losartan Potassium (Cozaar) 25 mg PO QDAY [facility] Last Admin: 01/12/20 09:41 Dose: 25 mg Documented by: Metoprolol Succinate (Metoprolol Xl) 25 mg PO QDAY [facility] Last Admin: 01/12/20 09:42 Dose: 25 mg Documented by: Montelukast Sodium (Singulair) 10 mg PO QPM [facility] Last Admin: 01/12/20 17:06 Dose: 10 mg Documented by: Spironolactone (Aldactone) 25 mg PO QDAY [facility] Last Admin: 08/22/20 09:42 Dose: 25 mg Documented by: Past History Past Medical History: COPD, diabetes, heart failure, hypertension Past Surgical History: Other (Right knee surgery) Social history: no significant social history, full code. denies: smoking, alcohol abuse, prescription drug abuse, IV drug use Family history: no significant family history (No pulm issues reported) Medications and Allergies Allergies Allergy/AdvReac Type Severity Reaction Status Date / Time morphine Allergy Unknown Verified 02/02/19 01:44 Home Medications Medication Instructions Recorded Confirmed Last Taken Type Montelukast [Singulair] 10 mg PO QPM 02/02/19 01/10/20 01/08/20 History Remeron 30mg TAB 30 mg PO HS 02/02/19 01/10/20 01/08/20 History Fluticasone/Salmeterol [Advair 1 puff IH BID #1 disk.w.dev 02/05/19 01/10/20 01/09/20 Rx Diskus 100-50 mcg] Gabapentin [Neurontin] 600 mg PO Q8H #90 08/31/19 01/10/20 01/09/20 Rx Ipratropium/Albuterol Sulfate 1 ampul IH TIDRT PRN #30 ampul.neb 08/31/19 01/10/20 01/09/20 Rx [DUONEB *Not for PRN Use*] Losartan [Cozaar] 25 mg PO QDAY #30 tablet 08/31/19 01/10/20 01/09/20 Rx Metoprolol Xl [Metoprolol 25 mg PO QDAY #30 tablet 08/31/19 01/10/20 01/09/20 Rx SUCCINATE ER TAB] Spironolactone [Aldactone] 25 mg PO QDAY #30 tablet 08/31/19 01/10/20 01/09/20 Rx dilTIAZem [Cardizem] 240 mg PO DAILY #30 tab 08/31/19 01/10/20 01/09/20 Rx glipiZIDE 10 mg PO BID #60 08/31/19 01/10/20 01/09/20 Rx Amitriptyline 50 mg PO HS 01/10/20 01/10/20 01/08/20 History Atorvastatin Calcium [Lipitor] 80 mg PO HS 01/10/20 01/10/20 01/08/20 History Furosemide [Lasix TAB] 40 mg PO BID 01/10/20 01/10/20 01/09/20 History Active Meds: Active Medications Albuterol/Ipratropium (Duoneb *Not For Prn Use*) 1 ampul IH TIDRT PRN PRN Reason: sob Stop: 01/15/20 18:00 Last Admin: 01/10/20 18:39 Dose: 1 ampul Documented by: Amitriptyline HCl (Elavil) 50 mg PO QHS [facility] Last Admin: 01/11/20 22:14 Dose: 50 mg Documented by: Arformoterol Tartrate (Brovana Nebu) 15 mcg IH Q12HRT [facility] Last Admin: 01/12/20 07:28 Dose: 15 mcg Documented by: Atorvastatin Calcium (Lipitor) 80 mg PO QHS [facility] Last Admin: 01/11/20 22:13 Dose: 80 mg Documented by: Budesonide (Pulmicort) 0.5 mg IH Q12HRT [facility] Last Admin: 01/12/20 07:28 Dose: 0.5 mg Documented by: Furosemide (Lasix) 80 mg IV 0600,1800 [facility] Last Admin: 01/12/20 17:06 Dose: 80 mg Documented by: Gabapentin (Gabapentin) 600 mg PO Q8HR [facility] Last Admin: 01/12/20 13:13 Dose: 600 mg Documented by: Losartan Potassium (Cozaar) 25 mg PO QDAY [facility] Last Admin: 01/12/20 09:41 Dose: 25 mg Documented by: Metoprolol Succinate (Metoprolol Xl) 25 mg PO QDAY [facility] Last Admin: 01/12/20 09:42 Dose: 25 mg Documented by: Montelukast Sodium (Singulair) 10 mg PO QPM [facility] Last Admin: 01/12/20 17:06 Dose: 10 mg Documented by: Spironolactone (Aldactone) 25 mg PO QDAY [facility] Last Admin: 01/12/20 09:42 Dose: 25 mg Documented by: Review of Systems All systems: negative Physical Examination Vital signs: Vital Signs Temp Pulse Resp BP Pulse Ox 98.7 F 98 H 22 146/84 93 01/09/20 18:22 01/09/20 18:22 01/09/20 18:22 01/09/20 18:22 01/09/20 18:22 General appearance: no acute distress, alert Eyes: non-icteric ENT: oropharynx moist Neck: supple Effort: normal Ascultation: Bilateral: diminished breath sounds (due to obesity) Cardiovascular: regular rate and rhythm (no mrg) Gastrointestinal: normoactive bowel sounds, soft, non-tender, non-distended Integumentary: normal Extremities: no cyanosis, edema (3+ bilateral LE edema) Musculoskeletal: no deformities normal mental status, non-focal exam mood appropriate, affect normal Results - Laboratory Findings CBC and BMP: 01/09/20 23:13 01/09/20 23:13 Abnormal lab findings: Abnormal Labs 01/09/20 01/09/20 01/10/20 23:13 23:13 00:44 RBC 3.45 L Hgb 9.6 L RDW 19.6 H [place] % (Auto) 7.5 H Lymph # 1.1 L Seg Neutrophils % 74.5 H BUN 21 H Creatinine 1.3 H Glucose 195 H Alkaline Phosphatase 161 H NT-Pro-B Natriuret Pep 1873 H - Diagnostic Findings Chest x-ray: report reviewed, image reviewed Assessment and Plan Imp: 1. A/C systolic CHF 2. NICMP 3. JARED/OHS/Morbid obesity 4. Pulm HTN 5. COPD w/o exac. 6. Chronic respiratory failure, hypoxia/hypercapnea Rec: 1. Agree with IV diuretics 2. Nutrition consult for diet counseling 3. Add DVT PPx 4. Systemic steroids not indicated 5. BIPAP QHS Plan of care reviewed w/ patient, she understands/agrees Thanks for the consult.
[2020-01-12] MEDS: AMITRIPTYLINE 25 MG TAB PO SCH (21:49)
[2020-01-12] MEDS: HEPARIN 5,000 UNIT/1 ML VIAL SUB-Q SCH (21:50)
[2020-01-13] MEDS: GABAPENTIN 300 MG CAP PO SCH ×3 (05:30→21:39)
[2020-01-13] MEDS: FUROSEMIDE 40 MG/4 ML INJ IV SCH ×2 (05:30→19:22)
[2020-01-13] MEDS: HEPARIN 5,000 UNIT/1 ML VIAL SUB-Q SCH ×3 (05:31→21:40)
[2020-01-13] MEDS: ARFORMOTEROL 15 MCG/2 ML NEBU IH SCH ×2 (08:37→21:12)
[2020-01-13] MEDS: BUDESONIDE 0.5 MG/2 ML NEBU IH SCH ×2 (08:37→21:12)
--- NOTE | 2020-01-13 09:40 | Progress Note ---
Assessment and Plan Assessment and plan: Acute combined systolic and diastolic HF. Echo performed 11/2019 revealed a RVSP of 59 mmHg, dilated right heart chambers with moderately severe pulmonary hypertension. There is also LV systolic dysfunction, ejection fraction 30-35%. Consult Cardiology. Place on HF pathway Hx of COPD on home oxygen. Cont. O2 Pulmonary HTN with cor pulmonale. As above. Hx of obstructive sleep apnea on BiPAP Obesity hypoventilation syndrome. Morbid obesity. Acute on chronic resp failure. Etiology secondary to above Dilated Cardiomyopathy 01/11/2020. Patient reports dyspnea with minimal exertion such as walking to the bathroom. Continue medical therapy for underlying cardiomyopathy per cardiology. Pulmonary consultation pending for management of cor pulmonale and ES COPD. 01/12/2020. Patient still with dyspnea at rest and minimal exertion. Continue IV diuresis to maintain negative fluid balance. Spironolactone, losartan and Lasix IV twice daily. Await pulmonary evaluation. Continue Singulair, bronchodilators/nebulizer treatments and Pulmicort. 01/13/2020. Continue IV diuresis per cardiology and pulmonary recommendations. Continue Singulair, bronchodilators/nebulizer treatments and Pulmicort. History Interval history: No new issues overnight Hospitalist Physical - Constitutional Vitals: Temp Pulse Resp BP Pulse Ox 97.9 F 96 H 20 122/78 97 01/13/20 08:28 01/13/20 08:28 01/13/20 08:28 01/13/20 08:28 01/13/20 08:28 General appearance: Present: no acute distress, obese - EENT Eyes: Present: PERRL, EOM intact ENT: hearing intact, clear oral mucosa, dentition normal - Neck Neck: Present: supple, normal ROM - Respiratory Respiratory effort: normal Respiratory: bilateral: CTA - Cardiovascular Rhythm: regular Heart Sounds: Present: S1 & S2. Absent: gallop, rub - Extremities Extremities: no ischemia, No edema, Full ROM - Abdominal General gastrointestinal: soft, non-tender, non-distended, normal bowel sounds - Integumentary Integumentary: Present: clear, warm, dry - Neurologic Neurologic: CNII-XII intact, moves all extremities HEART Score - HEART Score Troponin: Troponin T < 0.010 ng/mL (0.00-0.029) 01/09/20 23:13 Results - Labs CBC & Chem 7: 01/09/20 23:13 01/09/20 23:13 Labs: Laboratory Last Values WBC 8.1 K/mm3 (4.5-11.0) 01/09/20 23:13 RBC 3.45 M/mm3 (3.65-5.03) L 01/09/20 23:13 Hgb 9.6 gm/dl (10.1-14.3) L 01/09/20 23:13 Hct 30.6 % (30.3-42.9) 01/09/20 23:13 MCV 89 fl (79-97) 01/09/20 23:13 MCH 28 pg (28-32) 01/09/20 23:13 MCHC 31 % (30-34) 01/09/20 23:13 RDW 19.6 % (13.2-15.2) H 01/09/20 23:13 Plt Count 286 K/mm3 (140-440) 01/09/20 23:13 Lymph % (Auto) 13.4 % (13.4-35.0) 01/09/20 23:13 [place] % (Auto) 7.5 % (0.0-7.3) H 01/09/20 23:13 Eos % (Auto) 3.5 % (0.0-4.3) 01/09/20 23:13 Baso % (Auto) 1.1 % (0.0-1.8) 01/09/20 23:13 Lymph # 1.1 K/mm3 (1.2-5.4) L 01/09/20 23:13 [place] # 0.6 K/mm3 (0.0-0.8) 01/09/20 23:13 Eos # 0.3 K/mm3 (0.0-0.4) 01/09/20 23:13 Baso # 0.1 K/mm3 (0.0-0.1) 01/09/20 23:13 Seg Neutrophils % 74.5 % (40.0-70.0) H 01/09/20 23:13 Seg Neutrophils # 6.0 K/mm3 (1.8-7.7) 01/09/20 23:13 Sodium 141 mmol/L (137-145) 01/09/20 23:13 Potassium 4.4 mmol/L (3.6-5.0) 01/09/20 23:13 Chloride 101.3 mmol/L (98-107) 01/09/20 23:13 Carbon Dioxide 28 mmol/L (22-30) 01/09/20 23:13 Anion Gap 16 mmol/L 01/09/20 23:13 BUN 21 mg/dL (7-17) H 01/09/20 23:13 Creatinine 1.3 mg/dL (0.6-1.2) H 01/09/20 23:13 Estimated GFR 52 ml/min 01/09/20 23:13 BUN/Creatinine Ratio 16 % 01/09/20 23:13 Glucose 195 mg/dL (65-100) H 01/09/20 23:13 Lactic Acid 0.90 mmol/L (0.7-2.0) 01/09/20 23:13 Calcium 9.4 mg/dL (8.4-10.2) 01/09/20 23:13 Total Bilirubin 0.40 mg/dL (0.1-1.2) 01/09/20 23:13 AST 17 units/L (5-40) 01/09/20 23:13 ALT 15 units/L (7-56) 01/09/20 23:13 Alkaline Phosphatase 161 units/L (35-129) H 01/09/20 23:13 Total Creatine Kinase 102 units/L (30-135) 01/09/20 23:13 CK-MB (CK-2) 1.7 ng/mL (0.0-4.0) 01/09/20 23:13 CK-MB (CK-2) Rel Index 1.6 (0-4) 01/09/20 23:13 Troponin T < 0.010 ng/mL (0.00-0.029) 01/09/20 23:13 NT-Pro-B Natriuret Pep 1873 pg/mL (0-900) H 01/10/20 00:44 Total Protein 7.7 g/dL (6.3-8.2) 01/09/20 23:13 Albumin 3.9 g/dL (3.9-5) 01/09/20 23:13 Albumin/Globulin Ratio 1.0 % 01/09/20 23:13 Rogers/IV: Voiding Method Toilet IV Catheter Type [Left Hand] INT / Saline Lock Active Medications - Current Medications Current Medications: Generic Name Dose Route Start Last Admin Trade Name Christianoq PRN Reason Stop Dose Admin Albuterol/Ipratropium 1 ampul 01/10/20 18:01 01/10/20 18:39 Duoneb *Not For Prn Use* IH 01/15/20 18:00 1 ampul TIDRT PRN Administration sob Amitriptyline HCl 50 mg 01/10/20 22:00 01/12/20 21:49 Elavil PO 50 mg QHS RADHA Administration Arformoterol Tartrate 15 mcg 01/11/20 08:00 01/13/20 08:37 Brovana Nebu IH 15 mcg Q12HRT RADHA Administration Atorvastatin Calcium 80 mg 01/10/20 22:00 01/12/20 21:49 Lipitor PO 80 mg QHS RADHA Administration Budesonide 0.5 mg 01/11/20 08:00 01/13/20 08:37 Pulmicort IH 0.5 mg Q12HRT RADHA Administration Furosemide 80 mg 01/12/20 18:00 01/13/20 05:30 Lasix IV 80 mg 0600,1800 RADHA Administration Gabapentin 600 mg 01/10/20 22:00 01/13/20 05:30 Gabapentin PO 600 mg Q8HR RADHA Administration Heparin Sodium (Porcine) 5,000 unit 01/12/20 22:00 01/13/20 05:31 Heparin SUB-Q 5,000 unit Q8HR RADHA Administration Losartan Potassium 25 mg 01/11/20 10:00 01/12/20 09:41 Cozaar PO 25 mg QDAY RADHA Administration Metoprolol Succinate 25 mg 01/11/20 10:00 01/12/20 09:42 Metoprolol Xl PO 25 mg QDAY RADHA Administration Montelukast Sodium 10 mg 01/11/20 18:00 01/12/20 17:06 Singulair PO 10 mg QPM RADHA Administration Spironolactone 25 mg 01/11/20 10:00 01/12/20 09:42 Aldactone PO 25 mg QDAY RADHA Administration
--- NOTE | 2020-01-13 10:03 | Progress Note ---
Assessment and Plan 1. Chronic combined systolic and diastolic heart failure 2. Dilated cardiomyopathy 3. Chronic obstructive pulmonary disease 4. Morbid obesity 5. Obstructive sleep apnea Previous echo from 12/18/2019 showed biventricular failure with severely dilated right ventricle and atrium severe pulmonary hypertension left ventricular ejection fraction of 30 to 35%. This represents right greater than left-sided heart failure. Plan. Patient states she has had significant successful diuresing with the increased dose and Lasix we shall monitor her BUN and creatinine continue diuresing at present dose. Continue to monitor daily weights. Subjective Date of service: 01/13/20 Interval history: Patient feels better Objective Vital Signs Temp Pulse Pulse Resp Resp BP Pulse Ox 01/13/20 08:28 97.9 F 96 H 20 122/78 97 01/13/20 03:58 98 H 01/13/20 03:44 97.7 F 101 H 20 115/73 95 01/13/20 00:29 97.9 F 104 H 20 134/76 93 01/13/20 00:10 107 H 23 98 01/12/20 23:32 113 H 01/12/20 20:58 91 01/12/20 20:56 110 H 20 01/12/20 19:15 98.2 F 110 H 20 146/89 97 01/12/20 17:12 108 H 169/90 98 01/12/20 11:15 98.3 F 102 H 18 148/90 99 01/12/20 10:00 105 H - Physical Examination General: No Apparent Distress, Other (morbidly obese) HEENT: Positive: PERRL Neck: Positive: trachea midline Cardiac: Positive: Regular Rate, S1/S2, S3, Systolic Murmur, PMI, Dilated, Laterally Displaced Lungs: Positive: clear to auscultation, No Wheeze, Rales, Rhonchi Neuro: Positive: Grossly Intact Extremities: Present: edema, +1 Edema
[2020-01-13] MEDS: METOPROLOL SUCCINATE XL 25 MG TAB PO SCH (12:17)
[2020-01-13] MEDS: SPIRONOLACTONE 25 MG TAB PO SCH (12:19)
[2020-01-13] MEDS: LOSARTAN 25 MG TAB PO SCH (12:19)
--- NOTE | 2020-01-13 15:37 | Progress Note ---
Assessment and Plan Imp: 1. A/C systolic CHF 2. NICMP 3. JARED/OHS/Morbid obesity 4. Pulm HTN 5. COPD w/o exac. 6. Chronic respiratory failure, hypoxia/hypercapnea Rec: 1. Agree with continuing IV diuretics 2. Nutrition consult done for diet counseling 3. Added DVT PPx 4. Systemic steroids not indicated 5. BIPAP QHS Plan of care reviewed w/ patient, she understands/agrees Subjective Date of service: 01/13/20 Principal diagnosis: Acute/chronic CHF Interval history: No events. Awake, alert. Still with significant THOMAS. LE edema a little better. Urine output good. No new complaints. Active Medications Albuterol/Ipratropium (Duoneb *Not For Prn Use*) 1 ampul IH TIDRT PRN PRN Reason: sob Stop: 01/15/20 18:00 Last Admin: 01/10/20 18:39 Dose: 1 ampul Documented by: Amitriptyline HCl (Elavil) 50 mg PO QHS [facility] Last Admin: 01/12/20 21:49 Dose: 50 mg Documented by: Arformoterol Tartrate (Brovana Nebu) 15 mcg IH Q12HRT [facility] Last Admin: 01/13/20 08:37 Dose: 15 mcg Documented by: Atorvastatin Calcium (Lipitor) 80 mg PO QHS [facility] Last Admin: 01/12/20 21:49 Dose: 80 mg Documented by: Budesonide (Pulmicort) 0.5 mg IH Q12HRT [facility] Last Admin: 01/13/20 08:37 Dose: 0.5 mg Documented by: Furosemide (Lasix) 80 mg IV 0600,1800 [facility] Last Admin: 01/13/20 05:30 Dose: 80 mg Documented by: Gabapentin (Gabapentin) 600 mg PO Q8HR [facility] Last Admin: 01/13/20 13:37 Dose: 600 mg Documented by: Heparin Sodium (Porcine) (Heparin) 5,000 unit SUB-Q Q8HR [facility] Last Admin: 01/13/20 13:38 Dose: 5,000 unit Documented by: Losartan Potassium (Cozaar) 25 mg PO QDAY [facility] Last Admin: 01/13/20 12:19 Dose: 25 mg Documented by: Metoprolol Succinate (Metoprolol Xl) 25 mg PO QDAY [facility] Last Admin: 01/13/20 12:17 Dose: 25 mg Documented by: Montelukast Sodium (Singulair) 10 mg PO QPM [facility] Last Admin: 01/12/20 17:06 Dose: 10 mg Documented by: Spironolactone (Aldactone) 25 mg PO QDAY [facility] Last Admin: 01/13/20 12:19 Dose: 25 mg Documented by: Objective Vital Signs - 12hr 01/13/20 01/13/20 01/13/20 03:44 03:58 08:28 Temperature 97.7 F 97.9 F Pulse Rate 101 H 98 H 96 H Pulse Rate [ Anterior] Respiratory 20 20 Rate Respiratory Rate [Anterior] Blood Pressure 115/73 122/78 Blood Pressure [Right] O2 Sat by Pulse 95 97 Oximetry 01/13/20 01/13/20 01/13/20 08:35 11:54 12:17 Temperature 97.9 F Pulse Rate 20 L 105 H Pulse Rate [ 102 H Anterior] Respiratory 20 Rate Respiratory 18 Rate [Anterior] Blood Pressure Blood Pressure 130/78 [Right] O2 Sat by Pulse 94 Oximetry 01/13/20 12:19 Temperature Pulse Rate 105 H Pulse Rate [ Anterior] Respiratory Rate Respiratory Rate [Anterior] Blood Pressure Blood Pressure [Right] O2 Sat by Pulse Oximetry Constitutional: no acute distress, alert Eyes: non-icteric ENT: oropharynx moist Neck: supple Effort: normal Ascultation: Bilateral: diminished breath sounds (due to obesity) Cardiovascular: regular rate and rhythm (no mrg) Gastrointestinal: normoactive bowel sounds, soft, non-tender, non-distended Integumentary: normal Extremities: no cyanosis, edema (3+ bilateral LE edema) Neurologic: normal mental status, non-focal exam Psychiatric: mood appropriate, affect normal CBC and BMP: 01/09/20 23:13 01/09/20 23:13 Abnormal lab findings: Abnormal Labs 01/09/20 01/09/20 01/10/20 23:13 23:13 00:44 RBC 3.45 L Hgb 9.6 L RDW 19.6 H [place] % (Auto) 7.5 H Lymph # 1.1 L Seg Neutrophils % 74.5 H BUN 21 H Creatinine 1.3 H Glucose 195 H Alkaline Phosphatase 161 H NT-Pro-B Natriuret Pep 1873 H Chest x-ray: report reviewed, image reviewed
[2020-01-13] MEDS: MONTELUKAST 10 MG TAB PO SCH (19:25)
[2020-01-13] MEDS: AMITRIPTYLINE 25 MG TAB PO SCH (21:39)
[2020-01-14] MEDS: GABAPENTIN 300 MG CAP PO SCH ×3 (05:53→21:53)
[2020-01-14] MEDS: FUROSEMIDE 40 MG/4 ML INJ IV SCH ×2 (05:53→17:33)
[2020-01-14] MEDS: HEPARIN 5,000 UNIT/1 ML VIAL SUB-Q SCH ×3 (05:53→21:53)
[2020-01-14] MEDS: BUDESONIDE 0.5 MG/2 ML NEBU IH SCH ×2 (08:44→21:03)
[2020-01-14] MEDS: ARFORMOTEROL 15 MCG/2 ML NEBU IH SCH ×2 (08:44→21:03)
--- NOTE | 2020-01-14 08:59 | Progress Note ---
Assessment and Plan 54 y/o morbidly obese female with chronic respiratory failure and noncompliance with PPV therapy and diet admitted with volume overload and CHF exacerbation. 1. Continue IV diuresis 2. Continue PPV at night 3. No indication for systemic steroids currently 4. Weight loss Subjective Date of service: 01/14/20 Principal diagnosis: Acute/chronic CHF Interval history: No acute events. Per charting, negative over 2 liters. Sats in the low 90's on 4 liters. Objective Vital Signs - 12hr 01/13/20 01/13/20 01/13/20 21:15 21:16 22:00 Temperature Pulse Rate Pulse Rate [ 105 H Anterior] Respiratory 16 Rate Respiratory 20 Rate [Anterior] Blood Pressure Blood Pressure [Right] O2 Sat by Pulse 96 Oximetry 01/13/20 01/14/20 01/14/20 23:29 00:30 03:51 Temperature 97.4 F L 97.8 F Pulse Rate 111 H 104 H 91 H Pulse Rate [ Anterior] Respiratory 20 28 H 16 Rate Respiratory Rate [Anterior] Blood Pressure 103/69 Blood Pressure 114/67 [Right] O2 Sat by Pulse 91 96 94 Oximetry 01/14/20 01/14/20 01/14/20 07:39 08:45 08:46 Temperature 97.9 F Pulse Rate 90 Pulse Rate [ 102 H Anterior] Respiratory 20 Rate Respiratory 20 Rate [Anterior] Blood Pressure 121/77 Blood Pressure [Right] O2 Sat by Pulse 95 92 Oximetry Constitutional: no acute distress, alert, other (morbidly obese) Eyes: non-icteric ENT: oropharynx moist Neck: supple Effort: normal Ascultation: Bilateral: diminished breath sounds (due to obesity) Cardiovascular: regular rate and rhythm (no mrg) Gastrointestinal: normoactive bowel sounds, soft, non-tender, non-distended Integumentary: normal Extremities: no cyanosis, edema (3+ bilateral LE edema) Neurologic: normal mental status, non-focal exam Psychiatric: mood appropriate, affect normal CBC and BMP: 01/09/20 23:13 01/09/20 23:13 Abnormal lab findings: Abnormal Labs 01/09/20 01/09/20 01/10/20 23:13 23:13 00:44 RBC 3.45 L Hgb 9.6 L RDW 19.6 H [place] % (Auto) 7.5 H Lymph # 1.1 L Seg Neutrophils % 74.5 H BUN 21 H Creatinine 1.3 H Glucose 195 H Alkaline Phosphatase 161 H NT-Pro-B Natriuret Pep 1873 H
--- NOTE | 2020-01-14 09:48 | Progress Note ---
Assessment and Plan Assessment and plan: Acute combined systolic and diastolic HF. Echo performed 11/2019 revealed a RVSP of 59 mmHg, dilated right heart chambers with moderately severe pulmonary hypertension. There is also LV systolic dysfunction, ejection fraction 30-35%. Consult Cardiology. Place on HF pathway Hx of COPD on home oxygen. Cont. O2 Pulmonary HTN with cor pulmonale. As above. Hx of obstructive sleep apnea on BiPAP Obesity hypoventilation syndrome. Morbid obesity. Acute on chronic resp failure. Etiology secondary to above Dilated Cardiomyopathy 01/11/2020. Patient reports dyspnea with minimal exertion such as walking to the bathroom. Continue medical therapy for underlying cardiomyopathy per cardiology. Pulmonary consultation pending for management of cor pulmonale and ES COPD. 01/12/2020. Patient still with dyspnea at rest and minimal exertion. Continue IV diuresis to maintain negative fluid balance. Spironolactone, losartan and Lasix IV twice daily. Await pulmonary evaluation. Continue Singulair, bronchodilators/nebulizer treatments and Pulmicort. 01/13/2020. Continue IV diuresis per cardiology and pulmonary recommendations. Continue Singulair, bronchodilators/nebulizer treatments and Pulmicort. 01/14/2020. Continue IV diuresis. BiPAP at night and as clinically indicated. No indication for systemic steroids. Continue Singulair, bronchodilators/nebulizer treatments/Pulmicort. History Interval history: No new issues overnight Hospitalist Physical - Constitutional Vitals: Temp Pulse Resp BP Pulse Ox 97.9 F 102 H 20 121/77 92 01/14/20 07:39 01/14/20 08:45 01/14/20 08:45 01/14/20 07:39 01/14/20 08:46 General appearance: Present: no acute distress, obese - EENT Eyes: Present: PERRL, EOM intact ENT: hearing intact, clear oral mucosa, dentition normal - Neck Neck: Present: supple, normal ROM - Respiratory Respiratory effort: normal Respiratory: bilateral: CTA - Cardiovascular Rhythm: regular Heart Sounds: Present: S1 & S2. Absent: gallop, rub - Extremities Extremities: no ischemia, No edema, Full ROM - Abdominal General gastrointestinal: soft, non-tender, non-distended, normal bowel sounds - Integumentary Integumentary: Present: clear, warm, dry - Neurologic Neurologic: CNII-XII intact, moves all extremities HEART Score - HEART Score Troponin: Troponin T < 0.010 ng/mL (0.00-0.029) 01/09/20 23:13 Results - Labs CBC & Chem 7: 01/09/20 23:13 01/09/20 23:13 Labs: Laboratory Last Values WBC 8.1 K/mm3 (4.5-11.0) 01/09/20 23:13 RBC 3.45 M/mm3 (3.65-5.03) L 01/09/20 23:13 Hgb 9.6 gm/dl (10.1-14.3) L 01/09/20 23:13 Hct 30.6 % (30.3-42.9) 01/09/20 23:13 MCV 89 fl (79-97) 01/09/20 23:13 MCH 28 pg (28-32) 01/09/20 23:13 MCHC 31 % (30-34) 01/09/20 23:13 RDW 19.6 % (13.2-15.2) H 01/09/20 23:13 Plt Count 286 K/mm3 (140-440) 01/09/20 23:13 Lymph % (Auto) 13.4 % (13.4-35.0) 01/09/20 23:13 [place] % (Auto) 7.5 % (0.0-7.3) H 01/09/20 23:13 Eos % (Auto) 3.5 % (0.0-4.3) 01/09/20 23:13 Baso % (Auto) 1.1 % (0.0-1.8) 01/09/20 23:13 Lymph # 1.1 K/mm3 (1.2-5.4) L 01/09/20 23:13 [place] # 0.6 K/mm3 (0.0-0.8) 01/09/20 23:13 Eos # 0.3 K/mm3 (0.0-0.4) 01/09/20 23:13 Baso # 0.1 K/mm3 (0.0-0.1) 01/09/20 23:13 Seg Neutrophils % 74.5 % (40.0-70.0) H 01/09/20 23:13 Seg Neutrophils # 6.0 K/mm3 (1.8-7.7) 01/09/20 23:13 Sodium 141 mmol/L (137-145) 01/09/20 23:13 Potassium 4.4 mmol/L (3.6-5.0) 01/09/20 23:13 Chloride 101.3 mmol/L (98-107) 01/09/20 23:13 Carbon Dioxide 28 mmol/L (22-30) 01/09/20 23:13 Anion Gap 16 mmol/L 01/09/20 23:13 BUN 21 mg/dL (7-17) H 01/09/20 23:13 Creatinine 1.3 mg/dL (0.6-1.2) H 01/09/20 23:13 Estimated GFR 52 ml/min 01/09/20 23:13 BUN/Creatinine Ratio 16 % 01/09/20 23:13 Glucose 195 mg/dL (65-100) H 01/09/20 23:13 Lactic Acid 0.90 mmol/L (0.7-2.0) 01/09/20 23:13 Calcium 9.4 mg/dL (8.4-10.2) 01/09/20 23:13 Total Bilirubin 0.40 mg/dL (0.1-1.2) 01/09/20 23:13 AST 17 units/L (5-40) 01/09/20 23:13 ALT 15 units/L (7-56) 01/09/20 23:13 Alkaline Phosphatase 161 units/L (35-129) H 01/09/20 23:13 Total Creatine Kinase 102 units/L (30-135) 01/09/20 23:13 CK-MB (CK-2) 1.7 ng/mL (0.0-4.0) 01/09/20 23:13 CK-MB (CK-2) Rel Index 1.6 (0-4) 01/09/20 23:13 Troponin T < 0.010 ng/mL (0.00-0.029) 01/09/20 23:13 NT-Pro-B Natriuret Pep 1873 pg/mL (0-900) H 01/10/20 00:44 Total Protein 7.7 g/dL (6.3-8.2) 01/09/20 23:13 Albumin 3.9 g/dL (3.9-5) 01/09/20 23:13 Albumin/Globulin Ratio 1.0 % 01/09/20 23:13 Rogers/IV: Voiding Method Toilet IV Catheter Type [Left Hand] INT / Saline Lock Active Medications - Current Medications Current Medications: Generic Name Dose Route Start Last Admin Trade Name Freq PRN Reason Stop Dose Admin Albuterol/Ipratropium 1 ampul 01/10/20 18:01 01/10/20 18:39 Duoneb *Not For Prn Use* IH 01/15/20 18:00 1 ampul TIDRT PRN Administration sob Amitriptyline HCl 50 mg 01/10/20 22:00 01/13/20 21:39 Elavil PO 50 mg QHS RADHA Administration Arformoterol Tartrate 15 mcg 01/11/20 08:00 01/14/20 08:44 Brovana Nebu IH 15 mcg Q12HRT RADHA Administration Atorvastatin Calcium 80 mg 01/10/20 22:00 01/13/20 21:39 Lipitor PO 80 mg QHS RADHA Administration Budesonide 0.5 mg 01/11/20 08:00 01/14/20 08:44 Pulmicort IH 0.5 mg Q12HRT RADHA Administration Furosemide 80 mg 01/12/20 18:00 01/14/20 05:53 Lasix IV 80 mg 0600,1800 RADHA Administration Gabapentin 600 mg 01/10/20 22:00 01/14/20 05:53 Gabapentin PO 600 mg Q8HR RADHA Administration Heparin Sodium (Porcine) 5,000 unit 01/12/20 22:00 01/14/20 05:53 Heparin SUB-Q 5,000 unit Q8HR RADHA Administration Losartan Potassium 25 mg 01/11/20 10:00 01/13/20 12:19 Cozaar PO 25 mg QDAY RADHA Administration Metoprolol Succinate 25 mg 01/11/20 10:00 01/13/20 12:17 Metoprolol Xl PO 25 mg QDAY RADHA Administration Montelukast Sodium 10 mg 01/11/20 18:00 01/13/20 19:25 Singulair PO 10 mg QPM RADHA Administration Spironolactone 25 mg 01/11/20 10:00 01/13/20 12:19 Aldactone PO 25 mg QDAY RADHA Administration Nutrition/Malnutrition Assess - Dietary Evaluation Nutrition/Malnutrition Findings: Nutrition Notes Start: 01/13/20 10:58 Freq: Status: Active Protocol: Document 01/13/20 10:59 LM (Rec: 01/13/20 11:10 LM [id number]) Nutrition Notes Need for Assessment generated from: MD Order,Education Initial or Follow up Brief Note Current Diagnosis COPD,Diabetes,Hypertension, Heart Failure Other Pertinent Diagnosis fluid accumulation Weight Status Morbidly Obese Subjective/Other Information MD consult for diet education for CHF, low Na, and low K diet. Provided diet education to pt. Discussed low Na/K foods with pt. Also discussed healthy fat foods with pt and the plate method. Pt had a good understanding of low Na/ heart healthy foods. #1 Nutrition Diagnosis Food and nutrition-related knowledge deficit Etiology limited prior heart healthy diet education As Evidenced by Signs and Symptoms pt wanting diet education, pt reaining fluid Nutrition Intervention Teaching Recipient Patient Learning Readiness Good Teaching Methods Discussion,Handout Response to Teaching Verbalize understanding Education Handouts Provided Heart Healthy, Hypertension, and heart Healthy/consistent CHO Barriers to Learning No Barriers RD phone number provided Yes Patient aware of follow up options Yes Anticipated Discharge Needs: cardiac/consistent CHO Revisit per MD consult or patient Sign Off request:
--- NOTE | 2020-01-14 11:05 | Progress Note ---
Assessment and Plan Volume overload Pulmonary hypertension and cor pulmonale Chronic renal failure Morbid obesity Hx of COPD on home oxygen Hx of obstructive sleep apnea on BiPAP Dilated Cardiomyopathy, EF 35-40% by echo 11/2019 Recommendations: Medical therapy for underlying cardiomyopathy. Otherwise, conservative cardiac management. We will follow intermittently. Subjective Date of service: 01/14/20 Principal diagnosis: Acute/chronic CHF Interval history: Patient reports her breathing is better and that she is diuresing well. Objective Vital Signs Temp Pulse Pulse Resp Resp BP BP 01/14/20 08:46 01/14/20 08:45 102 H 20 01/14/20 07:39 97.9 F 90 20 121/77 01/14/20 03:51 97.8 F 91 H 16 114/67 01/14/20 00:30 104 H 28 H 01/13/20 23:29 97.4 F L 111 H 20 103/69 01/13/20 22:00 16 01/13/20 21:16 01/13/20 21:15 105 H 20 01/13/20 20:09 97.9 F 104 H 20 142/85 01/13/20 15:52 98.2 F 102 H 20 139/82 01/13/20 12:19 105 H 01/13/20 12:17 105 H 01/13/20 11:54 97.9 F 20 L 20 130/78 Pulse Ox 01/14/20 08:46 92 01/14/20 08:45 01/14/20 07:39 95 01/14/20 03:51 94 01/14/20 00:30 96 01/13/20 23:29 91 01/13/20 22:00 01/13/20 21:16 96 01/13/20 21:15 01/13/20 20:09 99 01/13/20 15:52 97 01/13/20 12:19 01/13/20 12:17 01/13/20 11:54 94 - Physical Examination General: No Apparent Distress, Other (morbidly obese) HEENT: Positive: PERRL Neck: Positive: trachea midline Neuro: Positive: Grossly Intact Extremities: Present: edema, +1 Edema
[2020-01-14] MEDS: LOSARTAN 25 MG TAB PO SCH (11:58)
[2020-01-14] MEDS: SPIRONOLACTONE 25 MG TAB PO SCH (11:58)
[2020-01-14] MEDS: METOPROLOL SUCCINATE XL 25 MG TAB PO SCH (11:59)
[2020-01-14] MEDS: MONTELUKAST 10 MG TAB PO SCH (17:37)
[2020-01-14] MEDS: AMITRIPTYLINE 25 MG TAB PO SCH (21:53)
[2020-01-15] MEDS: HEPARIN 5,000 UNIT/1 ML VIAL SUB-Q SCH ×3 (06:35→22:45)
[2020-01-15] MEDS: FUROSEMIDE 40 MG/4 ML INJ IV SCH ×2 (06:35→16:59)
[2020-01-15] MEDS: GABAPENTIN 300 MG CAP PO SCH ×3 (06:35→22:45)
[2020-01-15] MEDS: ARFORMOTEROL 15 MCG/2 ML NEBU IH SCH ×2 (07:50→19:48)
[2020-01-15] MEDS: BUDESONIDE 0.5 MG/2 ML NEBU IH SCH ×2 (07:50→19:48)
[2020-01-15] MEDS: METOPROLOL SUCCINATE XL 25 MG TAB PO SCH (09:24)
[2020-01-15] MEDS: LOSARTAN 25 MG TAB PO SCH (09:25)
[2020-01-15] MEDS: SPIRONOLACTONE 25 MG TAB PO SCH (09:25)
--- NOTE | 2020-01-15 09:52 | Progress Note ---
Assessment and Plan Assessment and plan: Patient is a 54-year-old female with known history of hypertension, CHF, COPD, diabetes mellitus presenting to the emergency room today complaining of shortness of breath which started this morning. Shortness of breath is said to be worse on exertion improves upon resting. She denies any chest pain, denies any fever or chills, denies any cough, denies any nausea vomiting and denies any diaphoresis. Patient denies any sick contacts and no recent travel. Denies any contact with anyone with COVID-19. Patient was slightly hypoxic upon arrival in the emergency room. Work-up today is consistent with CHF. Acute combined systolic and diastolic HF. Echo performed 11/2019 revealed a RVSP of 59 mmHg, dilated right heart chambers with moderately severe pulmonary hypertension. There is also LV systolic dysfunction, ejection fraction 30-35%. Consult Cardiology. Place on HF pathway Hx of COPD on home oxygen. Cont. O2 Pulmonary HTN with cor pulmonale. As above. Hx of obstructive sleep apnea on BiPAP Obesity hypoventilation syndrome. Morbid obesity. Acute on chronic resp failure. Etiology secondary to above Dilated Cardiomyopathy Acute kidney injury on CKD secondary to possible cardio renal syndrome versus vasomotor nephropathy 01/11/2020. Patient reports dyspnea with minimal exertion such as walking to the bathroom. Continue medical therapy for underlying cardiomyopathy per c ardiology. Pulmonary consultation pending for management of cor pulmonale and ES COPD. 01/12/2020. Patient still with dyspnea at rest and minimal exertion. Continue IV diuresis to maintain negative fluid balance. Spironolactone, losartan and Lasix IV twice daily. Await pulmonary evaluation. Continue Singulair, bronchodilators/nebulizer treatments and Pulmicort. 01/13/2020. Continue IV diuresis per cardiology and pulmonary recommendations. Continue Singulair, bronchodilators/nebulizer treatments and Pulmicort. 01/14/2020. Continue IV diuresis. BiPAP at night and as clinically indicated. No indication for systemic steroids. Continue Singulair, bronchodilators/nebulizer treatments/Pulmicort. 01/14: Patient unfortunately has not had a lab since the . Will order stat BMP at this time. She tells me that she follows with payment specialist outpatient Dr. Matthew will consult them at this time. Have had extensive discussion with her about congestive heart failure care and also her prognosis which is quite guarded considering her morbid obesity, noncompliance, CHF, acute kidney injury on CKD. I will also give her referral to bariatric surgeon outpatient. She is a high risk but there may be other non-surgical techniques that they may imply. History Interval history: Patient seen and examined reports increasing urinary output but not quite at her baseline. With her respiratory status. Hospitalist Physical - Physical exam Narrative exam: VITAL SIGNS: Reviewed. GENERAL: The patient appears normally developed, Vital signs as documented. Morbidly obese mild respiratory distress HEAD: No signs of head trauma. EYES: Pupils are equal. Extraocular motions intact. EARS: Hearing grossly intact. MOUTH: Oropharynx is normal. NECK: No adenopathy, no JVD. CHEST: Chest with diminished breath sounds bilaterally. No wheezes, rales, or rhonchi. CARDIAC: Regular rate and rhythm. S1 and S2, without murmurs, gallops, or rubs. VASCULAR: Generalized anasarca. Peripheral pulses normal and equal in all extremities. ABDOMEN: Soft, non tender and non distended. No rebound or guarding, and no masses palpated. Bowel Sounds normal. MUSCULOSKELETAL: Good range of motion of all major joints. Extremities without clubbing, cyanosis. Bilateral 2+ pitting edema. NEUROLOGIC EXAM: Alert and oriented x 3 No focal sensory or strength deficits. Speech normal. Follows commands. PSYCHIATRIC: Mood normal. SKIN: detail exam as documented in skin assessment - Constitutional Vitals: Temp Pulse Resp BP Pulse Ox 97.7 F 89 14 114/71 96 01/15/20 07:28 01/15/20 09:25 01/15/20 07:53 01/15/20 07:28 01/15/20 07:54 General appearance: Present: no acute distress, obese HEART Score - HEART Score Troponin: Troponin T < 0.010 ng/mL (0.00-0.029) 01/09/20 23:13 Results - Labs CBC & Chem 7: 01/09/20 23:13 01/09/20 23:13 Labs: Laboratory Last Values WBC 8.1 K/mm3 (4.5-11.0) 01/09/20 23:13 RBC 3.45 M/mm3 (3.65-5.03) L 01/09/20 23:13 Hgb 9.6 gm/dl (10.1-14.3) L 01/09/20 23:13 Hct 30.6 % (30.3-42.9) 01/09/20 23:13 MCV 89 fl (79-97) 01/09/20 23:13 MCH 28 pg (28-32) 01/09/20 23:13 MCHC 31 % (30-34) 01/09/20 23:13 RDW 19.6 % (13.2-15.2) H 01/09/20 23:13 Plt Count 286 K/mm3 (140-440) 01/09/20 23:13 Lymph % (Auto) 13.4 % (13.4-35.0) 01/09/20 23:13 [place] % (Auto) 7.5 % (0.0-7.3) H 01/09/20 23:13 Eos % (Auto) 3.5 % (0.0-4.3) 01/09/20 23:13 Baso % (Auto) 1.1 % (0.0-1.8) 01/09/20 23:13 Lymph # 1.1 K/mm3 (1.2-5.4) L 01/09/20 23:13 [place] # 0.6 K/mm3 (0.0-0.8) 01/09/20 23:13 Eos # 0.3 K/mm3 (0.0-0.4) 01/09/20 23:13 Baso # 0.1 K/mm3 (0.0-0.1) 01/09/20 23:13 Seg Neutrophils % 74.5 % (40.0-70.0) H 01/09/20 23:13 Seg Neutrophils # 6.0 K/mm3 (1.8-7.7) 01/09/20 23:13 Sodium 141 mmol/L (137-145) 01/09/20 23:13 Potassium 4.4 mmol/L (3.6-5.0) 01/09/20 23:13 Chloride 101.3 mmol/L (98-107) 01/09/20 23:13 Carbon Dioxide 28 mmol/L (22-30) 01/09/20 23:13 Anion Gap 16 mmol/L 01/09/20 23:13 BUN 21 mg/dL (7-17) H 01/09/20 23:13 Creatinine 1.3 mg/dL (0.6-1.2) H 01/09/20 23:13 Estimated GFR 52 ml/min 01/09/20 23:13 BUN/Creatinine Ratio 16 % 01/09/20 23:13 Glucose 195 mg/dL (65-100) H 01/09/20 23:13 Lactic Acid 0.90 mmol/L (0.7-2.0) 01/09/20 23:13 Calcium 9.4 mg/dL (8.4-10.2) 01/09/20 23:13 Total Bilirubin 0.40 mg/dL (0.1-1.2) 01/09/20 23:13 AST 17 units/L (5-40) 01/09/20 23:13 ALT 15 units/L (7-56) 01/09/20 23:13 Alkaline Phosphatase 161 units/L (35-129) H 01/09/20 23:13 Total Creatine Kinase 102 units/L (30-135) 01/09/20 23:13 CK-MB (CK-2) 1.7 ng/mL (0.0-4.0) 01/09/20 23:13 CK-MB (CK-2) Rel Index 1.6 (0-4) 01/09/20 23:13 Troponin T < 0.010 ng/mL (0.00-0.029) 01/09/20 23:13 NT-Pro-B Natriuret Pep 1873 pg/mL (0-900) H 01/10/20 00:44 Total Protein 7.7 g/dL (6.3-8.2) 01/09/20 23:13 Albumin 3.9 g/dL (3.9-5) 01/09/20 23:13 Albumin/Globulin Ratio 1.0 % 01/09/20 23:13 [place]/IV: Voiding Method Toilet IV Catheter Type [Right INT / Saline Lock Antecubital] IV Catheter Type [Left Hand] INT / Saline Lock Active Medications - Current Medications Current Medications: Generic Name Dose Route Start Last Admin Trade Name Freq PRN Reason Stop Dose Admin Albuterol/Ipratropium 1 ampul 01/10/20 18:01 01/10/20 18:39 Duoneb *Not For Prn Use* IH 01/15/20 18:00 1 ampul TIDRT PRN Administration sob Amitriptyline HCl 50 mg 01/10/20 22:00 01/14/20 21:53 Elavil PO 50 mg QHS RADHA Administration Arformoterol Tartrate 15 mcg 01/11/20 08:00 01/15/20 07:50 Brovana Nebu IH 15 mcg Q12HRT RADHA Administration Atorvastatin Calcium 80 mg 01/10/20 22:00 01/14/20 21:53 Lipitor PO 80 mg QHS RADHA Administration Budesonide 0.5 mg 01/11/20 08:00 01/15/20 07:50 Pulmicort IH 0.5 mg Q12HRT RADHA Administration Furosemide 80 mg 01/12/20 18:00 01/15/20 06:35 Lasix IV 80 mg 0600,1800 RADHA Administration Gabapentin 600 mg 01/10/20 22:00 01/15/20 06:35 Gabapentin PO 600 mg Q8HR RADHA Administration Heparin Sodium (Porcine) 5,000 unit 01/12/20 22:00 01/15/20 06:35 Heparin SUB-Q 5,000 unit Q8HR RADHA Administration Losartan Potassium 25 mg 01/11/20 10:00 01/15/20 09:25 Cozaar PO 25 mg QDAY RADHA Administration Metoprolol Succinate 25 mg 01/11/20 10:00 01/15/20 09:24 Metoprolol Xl PO 25 mg QDAY RADHA Administration Montelukast Sodium 10 mg 01/11/20 18:00 01/14/20 17:37 Singulair PO 10 mg QPM RADHA Administration Spironolactone 25 mg 01/11/20 10:00 01/15/20 09:25 Aldactone PO 25 mg QDAY RADHA Administration Nutrition/Malnutrition Assess - Dietary Evaluation Nutrition/Malnutrition Findings: Nutrition Notes Start: 01/13/20 10:58 Freq: Status: Active Protocol: Document 01/13/20 10:59 LM (Rec: 01/13/20 11:10 LM [id number]) Nutrition Notes Need for Assessment generated from: MD Order,Education Initial or Follow up Brief Note Current Diagnosis COPD,Diabetes,Hypertension, Heart Failure Other Pertinent Diagnosis fluid accumulation Weight Status Morbidly Obese Subjective/Other Information MD consult for diet education for CHF, low Na, and low K diet. Provided diet education to pt. Discussed low Na/K foods with pt. Also discussed healthy fat foods with pt and the plate method. Pt had a good understanding of low Na/ heart healthy foods. #1 Nutrition Diagnosis Food and nutrition-related knowledge deficit Etiology limited prior heart healthy diet education As Evidenced by Signs and Symptoms pt wanting diet education, pt reaining fluid Nutrition Intervention Teaching Recipient Patient Learning Readiness Good Teaching Methods Discussion,Handout Response to Teaching Verbalize understanding Education Handouts Provided Heart Healthy, Hypertension, and heart Healthy/consistent CHO Barriers to Learning No Barriers RD phone number provided Yes Patient aware of follow up options Yes Anticipated Discharge Needs: cardiac/consistent CHO Revisit per MD consult or patient Sign Off request:
--- NOTE | 2020-01-15 09:56 | Progress Note ---
Assessment and Plan 54 y/o morbidly obese female with chronic respiratory failure and noncompliance with PPV therapy and diet admitted with volume overload and CHF exacerbation. 1. Continue IV diuresis 2. Continue PPV at night 3. No indication for systemic steroids currently 4. Weight loss Subjective Date of service: 01/15/20 Principal diagnosis: Acute/chronic CHF Interval history: No acute events documented overnight. No acute issues noted by patient. -1500 on yesterday Objective Vital Signs - 12hr 01/14/20 01/14/20 01/15/20 23:05 23:44 04:55 Temperature 98.6 F 98.3 F Pulse Rate 27 L 96 H Pulse Rate [ Anterior] Respiratory 20 20 Rate Respiratory Rate [Anterior] Blood Pressure 128/81 126/75 O2 Sat by Pulse 95 95 100 Oximetry 01/15/20 01/15/20 01/15/20 07:28 07:53 07:54 Temperature 97.7 F Pulse Rate 92 H Pulse Rate [ 106 H Anterior] Respiratory 20 Rate Respiratory 14 Rate [Anterior] Blood Pressure 114/71 O2 Sat by Pulse 94 96 Oximetry 01/15/20 01/15/20 09:24 09:25 Temperature Pulse Rate 89 89 Pulse Rate [ Anterior] Respiratory Rate Respiratory Rate [Anterior] Blood Pressure O2 Sat by Pulse Oximetry Constitutional: no acute distress, alert, other (morbidly obese) Eyes: non-icteric ENT: oropharynx moist Neck: supple Effort: normal Ascultation: Bilateral: diminished breath sounds (due to obesity) Cardiovascular: regular rate and rhythm (no mrg) Gastrointestinal: normoactive bowel sounds, soft, non-tender, non-distended Integumentary: normal Extremities: no cyanosis, edema (3+ bilateral LE edema) Neurologic: normal mental status, non-focal exam Psychiatric: mood appropriate, affect normal CBC and BMP: 01/09/20 23:13 01/09/20 23:13 Abnormal lab findings: Abnormal Labs 01/09/20 01/09/20 01/10/20 23:13 23:13 00:44 RBC 3.45 L Hgb 9.6 L RDW 19.6 H [place] % (Auto) 7.5 H Lymph # 1.1 L Seg Neutrophils % 74.5 H BUN 21 H Creatinine 1.3 H Glucose 195 H Alkaline Phosphatase 161 H NT-Pro-B Natriuret Pep 1873 H
[2020-01-15 10:25] LABS: Basophils % (Auto) 0.5 % (0.0-1.8); Eosinophils # (Auto) 0.3 K/mm3 (0.0-0.4); Eosinophils % (Auto) 4.1 % (0.0-4.3); Hematocrit 28.8 % (30.3-42.9); Hemoglobin 9.2 gm/dl (10.1-14.3); Lymphocytes % (Auto) 15.6 % (13.4-35.0); Mean Corpuscular HGB Conc 32 % (30-34); Mean Corpuscular Volume 88 fl (79-97); Monocytes # (Auto) 0.6 K/mm3 (0.0-0.8); Monocytes % (Auto) 9.3 % (0.0-7.3); Platelet Count 253 K/mm3 (140-440); Red Blood Count 3.26 M/mm3 (3.65-5.03); Red Cell Distribution Width 18.7 % (13.2-15.2)
[2020-01-15 10:48] LABS: Calcium 9.2 mg/dL (8.4-10.2)
--- NOTE | 2020-01-15 18:48 | Consultation ---
History of Present Illness - Reason for Consult acute renal failure, chronic renal failure - History of Present Illness This is a 54-year-old woman with diabetes mellitus type 2, hypertension, COPD, left and right heart failure/cor pulmonale who presented with heart failure exacerbation. She has had multiple admissions due to fluid overload. Nephrology was consulted for acute kidney failure. Review of chart is notable for creatinine being last normal in August 2019. Since then it has peaked at 2.5 mg/dL prior admissions. She was discharged at the most recent admission at a level of 1.3 and upon admission this time it is persistent at 1.3. She notes good urine output. Past History Past Medical History: COPD, diabetes, heart failure, hypertension Past Surgical History: Other (Right knee surgery) Social history: no significant social history, full code. denies: smoking, alcohol abuse, prescription drug abuse, IV drug use Family history: no significant family history (No pulm issues reported) Medications and Allergies Allergies Allergy/AdvReac Type Severity Reaction Status Date / Time morphine Allergy Unknown Verified 02/02/19 01:44 Home Medications Medication Instructions Recorded Confirmed Last Taken Type Montelukast [Singulair] 10 mg PO QPM 02/02/19 01/10/20 01/08/20 History Remeron 30mg TAB 30 mg PO HS 02/02/19 01/10/20 01/08/20 History Fluticasone/Salmeterol [Advair 1 puff IH BID #1 disk.w.dev 02/05/19 01/10/20 01/09/20 Rx Diskus 100-50 mcg] Gabapentin [Neurontin] 600 mg PO Q8H #90 08/31/19 01/10/20 01/09/20 Rx Ipratropium/Albuterol Sulfate 1 ampul IH TIDRT PRN #30 ampul.neb 08/31/19 01/10/20 01/09/20 Rx [DUONEB *Not for PRN Use*] Losartan [Cozaar] 25 mg PO QDAY #30 tablet 08/31/19 01/10/20 01/09/20 Rx Metoprolol Xl [Metoprolol 25 mg PO QDAY #30 tablet 08/31/19 01/10/20 01/09/20 Rx SUCCINATE ER TAB] Spironolactone [Aldactone] 25 mg PO QDAY #30 tablet 08/31/19 01/10/20 01/09/20 Rx dilTIAZem [Cardizem] 240 mg PO DAILY #30 tab 08/31/19 01/10/20 01/09/20 Rx glipiZIDE 10 mg PO BID #60 08/31/19 01/10/20 01/09/20 Rx Amitriptyline 50 mg PO HS 01/10/20 01/10/20 01/08/20 History Atorvastatin Calcium [Lipitor] 80 mg PO HS 01/10/20 01/10/20 01/08/20 History Furosemide [Lasix TAB] 40 mg PO BID 01/10/20 01/10/20 01/09/20 History Active Meds: Active Medications Amitriptyline HCl (Elavil) 50 mg PO QHS [facility] Last Admin: 01/14/20 21:53 Dose: 50 mg Documented by: Arformoterol Tartrate (Brovana Nebu) 15 mcg IH Q12HRT [facility] Last Admin: 01/15/20 07:50 Dose: 15 mcg Documented by: Atorvastatin Calcium (Lipitor) 80 mg PO QHS [facility] Last Admin: 01/14/20 21:53 Dose: 80 mg Documented by: Budesonide (Pulmicort) 0.5 mg IH Q12HRT [facility] Last Admin: 01/15/20 07:50 Dose: 0.5 mg Documented by: Furosemide (Lasix) 80 mg IV 0600,1800 [facility] Last Admin: 01/15/20 16:59 Dose: 80 mg Documented by: Gabapentin (Gabapentin) 600 mg PO Q8HR [facility] Last Admin: 01/15/20 16:49 Dose: 600 mg Documented by: Heparin Sodium (Porcine) (Heparin) 5,000 unit SUB-Q Q8HR [facility] Last Admin: 01/15/20 16:49 Dose: 5,000 unit Documented by: Losartan Potassium (Cozaar) 25 mg PO QDAY [facility] Last Admin: 01/15/20 09:25 Dose: 25 mg Documented by: Metoprolol Succinate (Metoprolol Xl) 25 mg PO QDAY [facility] Last Admin: 01/15/20 09:24 Dose: 25 mg Documented by: Montelukast Sodium (Singulair) 10 mg PO QPM [facility] Last Admin: 01/14/20 17:37 Dose: 10 mg Documented by: Spironolactone (Aldactone) 25 mg PO QDAY [facility] Last Admin: 01/15/20 09:25 Dose: 25 mg Documented by: Exam - Vital Signs Vital signs: Vital Signs Temp Pulse Resp BP Pulse Ox 98.7 F 98 H 22 146/84 93 01/09/20 18:22 01/09/20 18:22 01/09/20 18:22 01/09/20 18:22 01/09/20 18:22 - Physical Exam Narrative exam: General appearance: well-developed, well-nourished EENT: ATNC Respiratory: Present: Clear to Ascultation Cardiology: regular, S1S2 Gastrointestinal: obese Neurologic: no focal deficit, alert and oriented x3 Musculoskeletal: other (3+ edema) Psychiatric: cooperative Results - Lab Results 01/15/20 10:00 01/15/20 10:00 Most recent lab results Calcium 9.2 mg/dL (8.4-10.2) 01/15/20 10:00 Assessment and Plan Impression: * Acute kidney injury on stage III chronic kidney disease --SCr last normal in August/2019. It peaked at 2.5 mg/dL on prior admission and was 1.3 mg/dL on discharge. Creatinine was 1.3 mg/dl this admission. * Congestive heart failure with exacerbation --TTE EF 35-40% Jan 2019 * Cor pulmonale * Chronic hypoxic respiratory failure on home oxygen 4 L * Pulmonary hypertension * Morbid obesity * Type II DM * Anemia Plan: * continue IV diuretics * goal UOP more than 3 L per day * monitor electrolytes * check renal ultrasound * Check urinalysis, urine protein * Hold Metformin, SUNITA/ARB and Aldactone * Strict I/O * Check daily weights * Dose medications for renal function * Avoid potential nephrotoxins * sodium restricted diet * counseled on importance of weight loss
[2020-01-15] MEDS: MONTELUKAST 10 MG TAB PO SCH (22:43)
[2020-01-15] MEDS: AMITRIPTYLINE 25 MG TAB PO SCH (22:45)
[2020-01-16] MEDS: FUROSEMIDE 40 MG/4 ML INJ IV SCH (06:09)
[2020-01-16] MEDS: GABAPENTIN 300 MG CAP PO SCH ×2 (06:09→13:16)
[2020-01-16] MEDS: HEPARIN 5,000 UNIT/1 ML VIAL SUB-Q SCH ×2 (06:09→13:15)
[2020-01-16 06:33] LABS: Hematocrit 27.6 % (30.3-42.9); Mean Corpuscular HGB Conc 33 % (30-34); Mean Corpuscular Volume 87 fl (79-97); Platelet Count 252 K/mm3 (140-440); Red Blood Count 3.18 M/mm3 (3.65-5.03); Red Cell Distribution Width 18.9 % (13.2-15.2)
[2020-01-16 06:51] LABS: Calcium 9.1 mg/dL (8.4-10.2)
[2020-01-16] MEDS: BUDESONIDE 0.5 MG/2 ML NEBU IH SCH (09:15)
[2020-01-16] MEDS: ARFORMOTEROL 15 MCG/2 ML NEBU IH SCH (09:15)
[2020-01-16] MEDS: METOPROLOL SUCCINATE XL 25 MG TAB PO SCH (09:32)
[2020-01-16] MEDS: LOSARTAN 25 MG TAB PO SCH (09:33)
[2020-01-16] MEDS: SPIRONOLACTONE 25 MG TAB PO SCH (09:33)
[2020-01-16 11:07] LABS: Creatinine,Urine 89.9 mg/dL (0.1-20.0); Microalbumin/Creatinine Ratio 163.5 ug/mg; Protein/Creatinine Ratio,Urine 0.34
[2020-01-16 11:55] VITALS: BP 143/78
--- NOTE | 2020-01-16 13:21 | Progress Note ---
Assessment and Plan 54 y/o morbidly obese female with chronic respiratory failure and noncompliance with PPV therapy and diet admitted with volume overload and CHF exacerbation. 1. Continue IV diuresis 2. Continue PPV at night 3. No indication for systemic steroids currently 4. Weight loss Subjective Date of service: 01/16/20 Principal diagnosis: Acute/chronic CHF Interval history: No acute events. Continues to diurese. Objective Vital Signs - 12hr 01/16/20 01/16/20 01/16/20 03:31 08:22 08:36 Temperature 97.0 F L 97.9 F Pulse Rate 85 91 H Pulse Rate [ Anterior] Pulse Rate [ 89 From Monitor] Respiratory 18 20 Rate Respiratory Rate [Anterior] Blood Pressure 117/69 112/72 O2 Sat by Pulse 95 99 98 Oximetry 01/16/20 01/16/20 01/16/20 09:15 09:31 09:32 Temperature Pulse Rate 91 H 87 Pulse Rate [ 96 H Anterior] Pulse Rate [ From Monitor] Respiratory Rate Respiratory 20 Rate [Anterior] Blood Pressure 130/75 130/75 O2 Sat by Pulse 93 Oximetry 01/16/20 01/16/20 01/16/20 09:33 10:00 11:45 Temperature Pulse Rate 87 106 H Pulse Rate [ Anterior] Pulse Rate [ From Monitor] Respiratory Rate Respiratory Rate [Anterior] Blood Pressure 130/75 143/78 O2 Sat by Pulse 94 99 Oximetry 01/16/20 11:54 Temperature 98.2 F Pulse Rate Pulse Rate [ Anterior] Pulse Rate [ From Monitor] Respiratory Rate Respiratory Rate [Anterior] Blood Pressure O2 Sat by Pulse Oximetry Constitutional: no acute distress, alert, other (morbidly obese) Eyes: non-icteric ENT: oropharynx moist Neck: supple Effort: normal Ascultation: Bilateral: diminished breath sounds (due to obesity) Cardiovascular: regular rate and rhythm (no mrg) Gastrointestinal: normoactive bowel sounds, soft, non-tender, non-distended Integumentary: normal Extremities: no cyanosis, edema (3+ bilateral LE edema) Neurologic: normal mental status, non-focal exam Psychiatric: mood appropriate, affect normal CBC and BMP: 01/16/20 04:26 01/16/20 04:26 Abnormal lab findings: Abnormal Labs 01/09/20 01/09/20 01/10/20 23:13 23:13 00:44 RBC 3.45 L Hgb 9.6 L Hct RDW 19.6 H [place] % (Auto) 7.5 H Lymph # 1.1 L Seg Neutrophils % 74.5 H Chloride BUN 21 H Creatinine 1.3 H Glucose 195 H Alkaline Phosphatase 161 H NT-Pro-B Natriuret Pep 1873 H Urine Creatinine Urine Total Protein 01/15/20 01/15/20 01/16/20 10:00 10:00 04:26 RBC 3.26 L 3.18 L Hgb 9.2 L 9.0 L Hct 28.8 L 27.6 L RDW 18.7 H 18.9 H [place] % (Auto) 9.3 H Lymph # 1.0 L Seg Neutrophils % 70.5 H Chloride 97.2 L BUN 22 H Creatinine 1.3 H Glucose 194 H Alkaline Phosphatase NT-Pro-B Natriuret Pep Urine Creatinine Urine Total Protein 01/16/20 01/16/20 04:26 09:36 RBC Hgb Hct RDW [place] % (Auto) Lymph # Seg Neutrophils % Chloride 97.0 L BUN 21 H Creatinine 1.3 H Glucose 165 H Alkaline Phosphatase NT-Pro-B Natriuret Pep Urine Creatinine 89.9 H Urine Total Protein 31 H
--- NOTE | 2020-01-16 13:23 | Discharge Summary ---
Providers - Providers Date of Admission: 01/10/20 15:31 Attending physician: HA VO MD 01/10/20 09:59 Consult to Physician [CONS] Routine Comment: Consulting Provider: SENA MEJIA Physician Instructions: Reason For Exam: CHF 01/12/20 08:24 Consult to Physician [CONS] Routine Comment: Consulting Provider: VIKTORIYA SOLO Physician Instructions: Reason For Exam: copd 01/12/20 18:32 Consult to Dietitian/Nutrition [CONS] Routine Physician Instructions: Reason For Exam: Counseling on CHF/low sodium, and low K diet Reason for Consult: Diet education 01/15/20 09:55 Consult to Physician [CONS] Routine Comment: Consulting Provider: BRIAN MATTHEW Physician Instructions: Reason For Exam: ian 01/15/20 10:00 Consult to Case Management [CONS] Routine Services Needed at Discharge: Other Notified:: cm Additional Physician Instructions: please give infor for bariatric surgery Primary care physician: SLOT TECHNICIAN Hospitalization Reason for admission: Congestive heart failure Condition: Stable Hospital course: Patient is a 54-year-old female with known history of hypertension, CHF, COPD, diabetes mellitus presenting to the emergency room today complaining of shortness of breath which started this morning. Shortness of breath is said to be worse on exertion improves upon resting. She denies any chest pain, denies any fever or chills, denies any cough, denies any nausea vomiting and denies any diaphoresis. Patient denies any sick contacts and no recent travel. Denies any contact with anyone with COVID-19. Patient was slightly hypoxic upon arrival in the emergency room. Work-up today is consistent with CHF. 01/11/2020. Patient reports dyspnea with minimal exertion such as walking to the bathroom. Continue medical therapy for underlying cardiomyopathy per cardiology. Pulmonary consultation pending for management of cor pulmonale and ES COPD. 01/12/2020. Patient still with dyspnea at rest and minimal exertion. Continue IV diuresis to maintain negative fluid balance. Spironolactone, losartan and Lasix IV twice daily. Await pulmonary evaluation. Continue Singulair, bronchodilators/nebulizer treatments and Pulmicort. 01/13/2020. Continue IV diuresis per cardiology and pulmonary recommendations. Continue Singulair, bronchodilators/nebulizer treatments and Pulmicort. 01/14/2020. Continue IV diuresis. BiPAP at night and as clinically indicated. No indication for systemic steroids. Continue Singulair, bronchodilators/nebulizer treatments/Pulmicort. 01/14: Patient unfortunately has not had a lab since the . Will order stat BMP at this time. She tells me that she follows with supervisor airplane flight attendant outpatient Dr. Matthew will consult them at this time. Have had extensive discussion with her about congestive heart failure care and also her prognosis which is quite guarded considering her morbid obesity, noncompliance, CHF, acute kidney injury on CKD. I will also give her referral to bariatric surgeon outpatient. She is a high risk but there may be other non-surgical techniques that they may imply. 01/15: Patient clinically improved and stable for discharge of discussed management and fluid restriction with the patient. She will also follow-up with supervisor airplane flight attendant outpatient. Acute combined systolic and diastolic HF. Echo performed 11/2019 revealed a RVSP of 59 mmHg, dilated right heart chambers with moderately severe pulmonary hypertension. There is also LV systolic dysfunction, ejection fraction 30-35%. Consult Cardiology. Place on HF pathway COPD on home oxygen. Cont. O2 Pulmonary HTN with cor pulmonale. As above. Obstructive sleep apnea on BiPAP Obesity hypoventilation syndrome. Morbid obesity. Acute on chronic resp failure. Etiology secondary to above Dilated Cardiomyopathy Acute kidney injury on CKD secondary to possible cardio renal syndrome versus vasomotor nephropathy Disposition: [id number] HOME UNDER [facility] Time spent for discharge: 35 mins Core Measure Documentation - Palliative Care Palliative Care/ Comfort Measures: Not Applicable - Core Measures Any of the following diagnoses?: heart failure - Heart Failure Discharge Requirements SUNITA/ARB for LVSD if EF <40%: Not Applicable Reason for no SUNITA/ARB: Renal impairment Beta bridgett at discharge: Yes Exam - Physical Exam Narrative exam: VITAL SIGNS: Reviewed. GENERAL: The patient appears normally developed, Vital signs as documented. Morbidly obese mild respiratory distress HEAD: No signs of head trauma. EYES: Pupils are equal. Extraocular motions intact. EARS: Hearing grossly intact. MOUTH: Oropharynx is normal. NECK: No adenopathy, no JVD. CHEST: Chest with diminished breath sounds bilaterally. No wheezes, rales, or rhonchi. CARDIAC: Regular rate and rhythm. S1 and S2, without murmurs, gallops, or rubs. VASCULAR: Small edema. Peripheral pulses normal and equal in all extremities. ABDOMEN: Soft, non tender and non distended. No rebound or guarding, and no masses palpated. Bowel Sounds normal. MUSCULOSKELETAL: Good range of motion of all major joints. Extremities without clubbing, cyanosis. Bilateral 1+ pitting edema. NEUROLOGIC EXAM: Alert and oriented x 3 No focal sensory or strength deficits. Speech normal. Follows commands. PSYCHIATRIC: Mood normal. SKIN: detail exam as documented in skin assessment - Constitutional Vitals: Temp Pulse Resp BP Pulse Ox 98.2 F 106 H 20 143/78 99 01/16/20 11:54 01/16/20 11:45 01/16/20 09:15 01/16/20 11:45 01/16/20 11:45 Plan Activity: advance as tolerated, fall precautions Diet: low salt Special Instructions: restrict fluid intake to (1200CC/DAY), record daily weights, record daily BP diary, home oxygen via (nasal cannula @ 3 liters per minute) Follow up with: DEMARCUS HOLLIS MD [Staff Physician] - 7 Days PRIMARY CARE, [Primary Care Provider] - 7 Days SENA MEJIA MD [Staff Physician] - 7 Days PRASANNA LIN MD [Staff Physician] - 7 Days Prescriptions: Furosemide [Lasix TAB] 40 mg PO BID #60 tab
--- NOTE | 2020-01-16 14:00 | Ultrasound Report ---
. ULTRASOUND RENAL INDICATION / CLINICAL INFORMATION: RYAN. COMPARISON: None available. FINDINGS: RIGHT KIDNEY: Length = 12.4 cm. [normal > 9 cm] - Parenchymal Thickness = 1.2 cm. [normal > 1.5 cm] - Echogenicity: Normal. - Hydronephrosis: None. - Cyst or mass: No significant abnormality. - Stones: None seen. LEFT KIDNEY: Length = 12.6 cm. [normal > 9 cm] - Parenchymal Thickness = 1.5 cm. [normal > 1.5 cm] - Echogenicity: Normal. - Hydronephrosis: None. - Cyst or mass: No significant abnormality. - Stones: None seen. URINARY BLADDER: Poorly visualized. FREE FLUID: None. ADDITIONAL FINDINGS: None. IMPRESSION: 1. No significant abnormality of the kidneys. Please note that the bladder is poorly visualized since the patient voided before the exam. Signer Name: Casey Sesay MD Signed: 01/16/2020 1:56 PM Workstation Name: [id number]
== END 2020-01-16 16:00 | disposition home health service (06) | DRG 291 ==
LOC: ED 18:17 → 4A 01-10 01:56 → OBSVTOIN 01-10 15:31
PROVIDERS: ADMIT Internal Medicine Geriatric Medicine; ATTEND Internal Medicine
DX: I13.0 Hypertensive heart and chronic kidney disease with heart failure and stage 1 through stage 4 chronic kidney disease, or unspecified chronic kidney disease (principal); J96.21 Acute and chronic respiratory failure with hypoxia; N17.0 Acute kidney failure with tubular necrosis; I50.43 Acute on chronic combined systolic (congestive) and diastolic (congestive) heart failure; J96.22 Acute and chronic respiratory failure with hypercapnia; E66.2 Morbid (severe) obesity with alveolar hypoventilation; Z68.44 Body mass index [BMI] 60.0-69.9, adult; I42.0 Dilated cardiomyopathy; J44.9 Chronic obstructive pulmonary disease, unspecified; N18.3 Chronic kidney disease, stage 3 (moderate); D64.9 Anemia, unspecified; I27.20 Pulmonary hypertension, unspecified; E87.70 Fluid overload, unspecified; E11.22 Type 2 diabetes mellitus with diabetic chronic kidney disease; Z99.81 Dependence on supplemental oxygen; Z91.19 Patient's noncompliance with other medical treatment and regimen; Z88.5 Allergy status to narcotic agent; Z79.84 Long term (current) use of oral hypoglycemic drugs
CPT/HCPCS: 36415; 71045; 76770; 80048; 80053; 82043; 82140; 82550; 82553; 82570; 83880; 84156; 84484; 85025; 85027; 93005; 94640; 94660; 94760; G0378; A9270-GY; J1644; J1940